=== PATIENT | female | born 1955 | race African-American/Black ===

== ENCOUNTER 2018-08-14 09:39 | Emergency (ER) | payer MEDICAID, SELFPAY ==
[2018-08-14 09:41] VITALS: BP 114/58; PULSE 87; RESP 16; TEMP 37.2; O2SAT 98; BMI 39.0
--- NOTE | 2018-08-14 10:02 | CT_ITS ---
STUDY: CT ABDOMEN AND PELVIS WITHOUT CONTRAST REASON FOR EXAM: Female, 63 years old. Left flank pain RADIATION DOSAGE (If Supplied By Facility): CTDIvol = ( 20.99 ) mGy, DLP = ( 865.14 ) mGycm TECHNIQUE: Transaxial images were obtained from the dome of the diaphragm to the symphysis pubis without oral contrast, and without intravenous contrast. Sagittal and coronal images were reconstructed. Individualized dose optimization techniques were used for this CT. COMPARISON: None. FINDINGS: There are chronic interstitial fibrotic changes of the lung bases. The visualized portions of the heart are within normal limits. Normal liver. Normal gallbladder and extrahepatic biliary system. Normal spleen. Normal pancreas. Normal bilateral adrenal glands. Normal right kidney. Normal left kidney. Normal visualized stomach. Normal small intestine. There are multiple colonic diverticula consistent with diverticulosis. There is non-visualization of the appendix. There is diffuse atherosclerotic calcification of the abdominal aorta, without a demonstrated aneurysm. Normal inferior vena cava. Normal retroperitoneum. Normal urinary bladder. Normal abdominal wall. Grade 1 spondylolisthesis of L4-L5. There is canal narrowing at multiple lumbar levels due to degenerative disc disease, facet arthropathy. CT/Abdomen/Pelvis without Cont IMPRESSION: 1. No hydronephrosis or urinary tract calcifications. 2. Chronic changes, as above. Electronically Signed: Sravan Jacobo MD at 11:19 EST , Service support ,
[2018-08-14] MEDS: 0.9% Normal Saline 1,000 ML 125 ML IV (10:47)
[2018-08-14 10:55] LABS: Absolute Lymphocyte Count 2.24 X10^3/ul (0.83-4.51); Absolute Neutrophil Count 4.5 X10^3/uL (2.0-7.7); Basophil# 0.02 X10^3/uL; Basophil% 0.3 % (0-1); Eosinophil# 0.07 X10^3/uL; Eosinophils% 0.9 % (0-5); Hematocrit 38.8 % (37-47); Lymphocyte # 2.24 X10^3/ul (4.0); Lymphocyte % 30.4 % (19-41); Mean Corp Hgb Conc 33.5 g/gl (32-36); Mean Corpuscular Hgb 31.6 pg (27.0-32.0); Mean Corpuscular Volume 94.4 fL (81-99); Mean Platelet Vol. 9.9 fl (6.2-12.0); Monocyte# 0.57 X10^3/uL; Monocyte% 7.7 % (0-10); Neutrophil # 4.45 X10^3/uL (2.7-7.7); Neutrophil % 60.4 % (47-70); Platelet Count 298 K/mm3 (150-450); RBC Distribution Width CV 12.9 % (11.6-14.6); RBC Distribution Width SD 43.3 fl (35.1-43.9); Red Blood Count 4.11 M/mm3 (4.2-5.4); White Blood Count 7.4 K/mm3 (4.4-11.0)
[2018-08-14 10:59] LABS: POSITIVE COUNT NO; POSITIVE DIFFERENTIAL NO; POSITIVE MORPHOLOGY NO
[2018-08-14 11:06] LABS: Anion Gap 8 (5-15); BUN 24 mg/dL (7-18); BUN/Creat Ratio 20.7 RATIO (10-20); Calcium,Total 9.3 mg/dL (8.5-10.1); Chloride 103 mmol/L (98-107); Creatinine, Serum 1.16 mg/dL (0.55-1.02); EST Glomerular Filtration Rate 50 mL/min (>60); Est Glom Filt Rate - Afr Amer 61 mL/min (>60); Estimated Creatinine Clearance 35.66 ml/min; Glucose 94 mg/dL (74-106); Potassium 3.6 mmol/L (3.5-5.1); Sodium Level 137 mmol/L (136-145)
[2018-08-14 11:30] LABS: Mucous, Urine 0 SEEN /hpf (<or=2+); Red Blood Cells-Urine 0 SEEN /hpf (0-5)
[2018-08-14 11:40] LABS: Color, Urine Yellow (Yellow); Glucose, Dipstick Normal (Normal); Ketone-Dipstick Negative (Negative); Leukocyte Esterase-Dipstick 100 /ul (Negative); Nitrite-Dipstick Positive (Negative); Occult Blood-Urine Negative /ul (Negative); Protein-Dipstick Negative (Negative); Urine Bilirubin Dipstick Negative (Negative); Urine Clarity Clear (Clear); Urine Urobilinogen Normal (Normal)
[2018-08-14 11:46] LABS: Bacteria 1+ /hpf (None Seen); Squamous Epithelial Cells - UA 0-5 SEEN /hpf (5-10); White Blood Cells 0-5 SEEN /hpf (0-5)
[2018-08-14 12:18] VITALS: BP 131/62; PULSE 75; RESP 16; O2SAT 95
--- NOTE | 2018-08-14 12:53 | ED.VISSUMM ---
- ER Visit Summary Date of Service: 08/14/18 Chief Complaint: [Abdominal pain] History of Present Illness: The patient is a 63 F [presents the emergency department with abdominal pain for about a month. Patient states that she has been seen for this by her primary care physician and was treated with an antibiotic for suspected urinary tract infection as she has had a foul odor to her urine as well as dysuria. Patient states that then she was called and told that she needed to be on a different antibiotic and she was prescribed something different and patient cannot tell me what she was taking. Patient states that she felt better for a short time after the antibiotics but then the symptoms started to come back. Patient denies any nausea or vomiting. She denies any diarrhea. She denies any blood in her stool or black tarry stools. Patient does have a history of diverticulosis and she is wondering if may be that not flared up. She does have a history of hypertension and high cholesterol.] Physical Examination: [HEENT-PERRLA, EOMI. Cranial nerves II through XII grossly intact. TMs clear. Mucous membranes moist. No adenopathy. Cardiovascular-regular rate and rhythm without murmur or ectopy Lungs-clear to auscultation, chest wall stable without crepitus or subcu emphysema Abdomen-normoactive bowel sounds, soft. Patient has some diffuse tenderness over the lower abdomen. There is no rebound, rigidity, or perineal signs. Extremities-intact ?4, normal range of motion, normal pulses, atraumatic] Test Results: [CBC with differential obtained showed a normal white blood cell count of 7.4, hemoglobin 13, hematocrit 39, placed 298. Chemistries unremarkable. Urinalysis was positive for 100 leukocyte esterase as well as positive for nitrites. Patient has 0-5 WBCs and +1 bacteria. Urine culture was sent.] CT scan of the abdomen pelvis without contrast showed nothing acute. Emergency Department Course and Treatment: [Patient was medicated with Rocephin 1 g IV.] Treatment Plan: [Patient will be treated with Bactrim and Pyridium as well as [place]] Disposition: [Discharged home in stable condition] Impression: [UTI] This note was generated with GetThisation software. It may contain incorrect words, spelling, and punctuation that were not noted in review of the chart prior to signing ED Disposition - Plan for ED Patient: Referrals: Louisa Wray, DRAW BENCH OPERATOR-C [Primary Care Provider] -
--- NOTE | 2018-08-14 12:56 | ED.DCSUM_ITS ---
- ER Visit Summary Date of Service: 08/14/18 Chief Complaint: [Abdominal pain] History of Present Illness: The patient is a 63 F [presents the emergency department with abdominal pain for about a month. Patient states that she has been seen for this by her primary care physician and was treated with an ant ibiotic for suspected urinary tract infection as she has had a foul odor to her urine as well as dysuria. Patient states that then she was called and told that she needed to be on a different antibiotic and she was prescribed something different and patient cannot tell me what she was taking. Patient states that she felt better for a short time after the antibiotics but then the symptoms started to come back. Patient denies any nausea or vomiting. She denies any diarrhea. She denies any blood in her stool or black tarry stools. Patient does have a history of diverticulosis and she is wondering if may be that not flared up. She does have a history of hypertension and high cholesterol.] Physical Examination: [HEENT-PERRLA, EOMI. Cranial nerves II through XII loreto ssly intact. TMs clear. Mucous membranes moist. No adenopathy. Cardiovascular-regular rate and rhythm without murmur or ectopy Lungs-clear to auscultation, chest wall stable without crepitus or subcu emphysema Abdomen-normoactive bowel sounds, soft. Patient has some diffuse tenderness over the lower abdomen. There is no rebound, rigidity, or perineal signs. Extremities-intact ?4, normal range of motion, normal pulses, atraumatic] Test Results: [CBC with differential obtained showed a normal white blood cell count of 7.4, hemoglobin 13, hematocrit 39, placed 298. Chemistries unremarkable. Urinalysis was positive for 100 leukocyte esterase as well as positive for nitrites. Patient has 0-5 WBCs and +1 bacteria. Urine culture was sent.] CT scan of the abdomen pelvis without contrast showed nothing acute. Emergency Department Course and Treatment: [Patient was medicated with Rocephin 1 g IV.] Treatment Plan: [Patient will be treated with Bactrim and Pyridium as well as [place]] Disposition: [Discharged home in stable condition] Impression: [UTI] This note was generated with A[employer] dictation software. It may contain incorrect words, spelling, and punctuation that were not noted in review of the chart prior to signing ED Disposition - Plan for ED Patient: Referrals: Louisa Wray, GEOMETRICIAN-C [Primary Care Provider] -
--- NOTE | 2018-08-14 12:56 | ED.DEP ---
ED Disposition - Plan for ED Patient: Instructions: ED UTI Cystitis Female Prescriptions: Hydrocodone Bitart/Apap 5-325 [[place] 5MG-325MG] 1 tab PO Q4H PRN PRN 2 Days #10 tab PRN Reason: Pain Phenazopyridine HCl [Pyridium] 200 mg PO BID PRN PRN #10 tab PRN Reason: Pain Smz/Tmp Ds [Bactrim Ds] 1 tab PO BID #20 tab Referrals: Louisa Wray, CARBURETOR REBUILDER-C [Primary Care Provider] - 3-5 Days
[2018-08-14] MEDS: Ceftriaxone 1 GM/50 ML BAG IV (13:23)
[2018-08-14 14:00] VITALS: BP 114/68; PULSE 67; RESP 16; O2SAT 99
[2018-08-14 14:11] VITALS: BP 114/68; PULSE 67; RESP 16; O2SAT 99
== END 2018-08-14 14:11 | disposition home or self-care (01) ==
PROVIDERS: Emergency Provider Emergency Medicine; Family Provider Nurse Practitioner Family; PCP Nurse Practitioner Family
DX: N39.0 Urinary tract infection, site not specified (principal); I10 Essential (primary) hypertension; E78.00 Pure hypercholesterolemia, unspecified; Z79.2 Long term (current) use of antibiotics; Z79.899 Other long term (current) drug therapy; Z87.891 Personal history of nicotine dependence
CPT/HCPCS: 74176; 80048; 81001; 85025; 96361; 96365; 99283; J7030

== ENCOUNTER → 2018-09-30 13:04 | Outpatient (CLI) | payer OTHER, SELFPAY ==
--- NOTE | 2018-09-30 13:07 | BI_ITS ---
MAMMOGRAPHY - BILATERAL SCREENING 3-D PILLO SYNTHESIS REASON FOR EXAM: Female, 63 years old. Bilateral Screening 3-D tomosynthesis PERTINENT HISTORY: Family history of breast cancer in 2 sisters at age 56 and 53. Left axillary cyst drained in 2005. TECHNIQUE: 2-D mammograms and 3-D Pillo synthesis of the breast (s) were performed. CAD was performed. COMPARISON: August 06, 2017, June 10, 2016 FINDINGS: The breast composition is almost entirely fat. Scattered benign calcifications are seen. There are stable lymph nodes. No dense spiculated masses or suspicious microcalcifications are identified. No architectural distortion is identified. There is no skin thickening or retraction. There has been no significant change since the prior study. BI/SCREENING MAMM (CAD), BILAT IMPRESSION: No mammographic signs of malignancy. Routine yearly mammograms recommended. ASSESSMENT CATEGORY: BIRADS Category 2: Benign. A letter regarding these results will be sent to the patient by the facility within 30 days. FOLLOW UP RECOMMENDATION: Yearly follow up mammogram recommended. (A) Approximately 10% of breast cancers are not detected by mammography. A normal mammogram should not delay biopsy of a clinically suspicious abnormality. Electronically Signed: Ethan Dukes MD at 17:05 EDT , Service support ,
== END ==
PROVIDERS: Family Provider Nurse Practitioner Family; PCP Nurse Practitioner Family
DX: Z12.31 Encounter for screening mammogram for malignant neoplasm of breast (principal)
CPT/HCPCS: 77063; 77067

== ENCOUNTER 2018-10-03 02:36 | Emergency (ER) | payer MEDICAID, SELFPAY ==
[2018-10-03 02:37] VITALS: BP 173/121; PULSE 73; RESP 16; TEMP 36.6; O2SAT 100; BMI 38.7
[2018-10-03 03:42] VITALS: BP 109/69; PULSE 72; RESP 16
--- NOTE | 2018-10-03 03:46 | RAD_ITS ---
STUDY: X-RAY - PELVIS AND RIGHT HIP REASON FOR EXAM: Female, 63 years old. Pain. No known injury. TECHNIQUE: 3 views of the pelvis and hip. COMPARISON: CT scan abdomen and pelvis 08/14/2018. FINDINGS: There is a non-specific bowel gas pattern. There are atherosclerotic vascular calcifications of the pelvic arteries. Normal bilateral iliac wings, sacroiliac joints and visualized sacrum. Normal bilateral superior and inferior pubic rami. Normal pubic symphysis. Normal bilateral ischial tuberosities. Normal visualized femoral head. Normal acetabulum. Normal hip joint. RAD/HIP, UNI W/ Pelvis 2-3 Views IMPRESSION: Normal x-ray examination of the pelvis and hip. Electronically Signed: Keith Nolasco MD at 4:48 EDT , Service support ,
[2018-10-03] MEDS: Ondansetron 4 MG/2 ML Vial IV (04:09)
[2018-10-03] MEDS: Morphine 4 MG/ML Syringe IV (04:10)
[2018-10-03 04:28] LABS: Absolute Lymphocyte Count 0.88 X10^3/ul (0.83-4.51); Absolute Neutrophil Count 7.6 X10^3/uL (2.0-7.7); Basophil# 0.02 X10^3/uL; Basophil% 0.2 % (0-1); Eosinophil# 0.01 X10^3/uL; Eosinophils% 0.1 % (0-5); Hematocrit 37.7 % (37-47); Hemoglobin 12.6 g/dl (12.0-15.0); Lymphocyte # 0.88 X10^3/ul (4.0); Mean Corp Hgb Conc 33.4 g/gl (32-36); Mean Corpuscular Hgb 30.8 pg (27.0-32.0); Mean Corpuscular Volume 92.2 fL (81-99); Mean Platelet Vol. 9.8 fl (6.2-12.0); Monocyte# 0.23 X10^3/uL; Monocyte% 2.6 % (0-10); Neutrophil # 7.59 X10^3/uL (2.7-7.7); Neutrophil % 86.3 % (47-70); Platelet Count 308 K/mm3 (150-450); RBC Distribution Width CV 13.7 % (11.6-14.6); RBC Distribution Width SD 45.8 fl (35.1-43.9); Red Blood Count 4.09 M/mm3 (4.2-5.4); White Blood Count 8.8 K/mm3 (4.4-11.0)
[2018-10-03 04:35] LABS: POSITIVE COUNT NO; POSITIVE DIFFERENTIAL NO; POSITIVE MORPHOLOGY NO
[2018-10-03 04:46] LABS: Erythrocyte Sedimentation Rate 31 mm/hr (0-30)
[2018-10-03 04:51] LABS: CRP < 2.90 mg/L (0.0-3.0)
--- NOTE | 2018-10-03 04:56 | ED.VISSUMM ---
- ER Visit Summary Date of Service: 10/03/18 Chief Complaint: [Pain right hip] History of Present Illness: The patient is a 63 F [presents with pain in the right hip that started yesterday. Patient denies any trauma. Patient states that she has been sitting on her toilet and has been falling onto it because it is quite low and she thinks it may have caused injury to her hip. Patient states the pain will radiate into her thigh. She denies any fevers. She denies any back pain. She denies any abdominal pain. Patient rates her pain a 10 out of 10. She is never had pain like this before. Patient denies any change in bowel or bladder function. She denies weakness in extremity. She denies saddle anesthesia. Physical Examination: HEENT-PERRLA, EOMI. Cranial nerves II through XII grossly intact. TMs clear. Mucous membranes moist. No adenopathy. Cardiovascular-regular rate and rhythm without murmur or ectopy Lungs-clear to auscultation, chest wall stable without crepitus or subcu emphysema Abdomen-normoactive bowel sounds, soft, nontender, no rebound or rigidity, no peritoneal signs. Back exam-patient has no tenderness over the thoracic or lumbar spine. Patient does have tenderness into the right buttock and right piriformis. Patient has mild tenderness over the right hip. There is negative straight leg raises bilaterally. Deep tendon reflexes are plus out of 4 bilaterally at the patella and Achilles. Patient has normal L5 extension. Extremities-intact ?4, normal range of motion, normal pulses, atraumatic [] Test Results: [CBC with differential obtained showed a normal white count of 8.8 and a sed rate of 31. CRP was normal at less than 2.9. X-rays of the right hip and pelvis were normal.] Emergency Department Course and Treatment: [Patient was then given morphine and Zofran.] Treatment Plan: [I suspect patient may have a sciatica/piriformis syndrome. Patient will be given a prescription for [place] for pain. Patient advised to follow-up with primary care physician within next 3-5 days.] Disposition: [Discharged home in stable condition] Impression: [Sciatica] This note was generated with Surflyation software. It may contain incorrect words, spelling, and punctuation that were not noted in review of the chart prior to signing ED Disposition - Plan for ED Patient: Referrals: Louisa Wray, LAUNDROMAT MANAGER-C [Primary Care Provider] -
--- NOTE | 2018-10-03 04:59 | ED.DCSUM_ITS ---
- ER Visit Summary Date of Service: 10/03/18 Chief Complaint: [Pain right hip] History of Present Illness: The patient is a 63 F [presents with pain in the right hip that started yesterday. Patient denies any trauma. Patient states that she has been sitting on her toilet and has been falling onto it because it is quite low and she thinks it may have caused injury to her hip. Patient states the pain will radiate into her thigh. She denies any fevers. She denies any back pain. She denies any abdominal pain. Patient rates her pain a 10 out of 10. She is never had pain like this before. Patient denies any change in bowel or bladder function. She denies weakness in extremity. She denies saddle anesthesia. Physical Examination: HEENT-PERRLA, EOMI. Cranial nerves II through XII grossly intact. TMs clear. Mucous membranes moist. No adenopathy. Cardiovascular-regular rate and rhythm without murmur or ectopy Lungs-clear to auscultation, chest wall stable without crepitus or subcu emphysema Abdomen-normoactive bowel sounds, soft, nontender, no rebound or rigidity, no peritoneal signs. Back exam-patient has no tenderness over the thoracic or lumbar spine. Patient does have tenderness into the right buttock and right piriformis. Patient has mild tenderness over the right hip. There is negative straight leg raises bilaterally. Deep tendon reflexes are plus out of 4 bilaterally at the patella and Achilles. Patient has normal L5 extension. Extremities-intact ?4, normal range of motion, normal pulses, atraumatic [] Test Results: [CBC with differential obtained showed a normal white count of 8.8 and a sed rate of 31. CRP was normal at less than 2.9. X-rays of the right hip and pelvis were normal.] Emergency Department Course and Treatment: [Patient was then given morphine and Zofran.] Treatment Plan: [I suspect patient may have a sciatica/piriformis syndrome. Patient will be given a prescription for [place] for pain. Patient advised to follow-up with primary care physician within next 3-5 days.] Disposition: [Discharged home in stable condition] Impression: [Sciatica] This note was generated with TruantTodayation software. It may contain incorrect words, spelling, and punctuation that were not noted in review of the chart prior to signing ED Disposition - Plan for ED Patient: Referrals: Louisa Wray, BASS MECHANISM MAKER-C [Primary Care Provider] -
--- NOTE | 2018-10-03 04:59 | ED.DEP ---
ED Disposition - Plan for ED Patient: Instructions: ED Sciatica Prescriptions: Hydrocodone Bitart/Apap 5-325 [[place] 5MG-325MG] 1 tab PO Q4H PRN PRN 2 Days #10 tab PRN Reason: Pain Referrals: Louisa Wray, REVOLVING INVENTORY CLERK-C [Primary Care Provider] - 3-5 Days
--- NOTE | 2018-10-03 05:00 | DCINST.ED_ITS ---
ED Disposition - Plan for ED Patient: Instructions: ED Sciatica Prescriptions: Hydrocodone Bitart/Apap 5-325 [[place] 5MG-325MG] 1 tab PO Q4H PRN PRN 2 Days #10 tab PRN Reason: Pain Referrals: Louisa Wray, FACS TEACHER-C [Primary Care Provider] - 3-5 Days
[2018-10-03] MEDS: HYDROcodone Bitartrate/Apap 5/325 Tablet PO (05:19)
[2018-10-03 05:29] VITALS: BP 160/89; PULSE 74; RESP 18; O2SAT 98
== END 2018-10-03 05:37 | disposition home or self-care (01) ==
LOC: ED 03:52
PROVIDERS: Emergency Provider Emergency Medicine; Family Provider Nurse Practitioner Family; PCP Nurse Practitioner Family
DX: M25.551 Pain in right hip (principal); M54.31 Sciatica, right side
CPT/HCPCS: 73502; 85025; 85652; 86140; 96374; 96375; 99284; A4216; J2405

== ENCOUNTER → 2019-05-02 | Outpatient (CLI) | payer OTHER, SELFPAY ==
[2019-02-22 09:49] VITALS: BMI 37.0
== END | disposition home or self-care (01) ==
LOC: SL 20:12
PROVIDERS: Family Provider Internal Medicine; PCP Internal Medicine; Referring Provider Nurse Practitioner Family; Visit Provider Nurse Practitioner Family
DX: G47.33 Obstructive sleep apnea (adult) (pediatric) (principal)
CPT/HCPCS: 95810

== ENCOUNTER → 2019-05-09 | Outpatient (CLI) | payer OTHER, SELFPAY ==
[2019-05-09 10:03] VITALS: BMI 37.0
[2019-05-09 12:21] LABS: Absolute Lymphocyte Count 2.28 X10^3/uL (0.83-4.51); Absolute Neutrophil Count 3.6 X10^3/uL (2.0-7.7); Basophil# 0.04 X10^3/uL; Basophil% 0.6 % (0-1); Eosinophil# 0.11 X10^3/uL; Eosinophils% 1.7 % (0-5); Hematocrit 41.4 % (37-47); Hemoglobin 13.3 g/dL (12.0-15.0); Lymphocyte # 2.28 X10^3/ul (4.0); Lymphocyte % 35.2 % (19-41); Mean Corp Hgb Conc 32.1 g/dL (32-36); Mean Corpuscular Hgb 31.1 pg (27.0-32.0); Mean Corpuscular Volume 96.7 fL (81-99); Mean Platelet Vol. 10.3 fl (6.2-12.0); Monocyte# 0.38 X10^3/uL; Monocyte% 5.9 % (0-10); NRBC Flagged by Analyzer 0 % (0-5); Neutrophil # 3.63 X10^3/uL (2.7-7.7); Platelet Count 313 K/mm3 (150-450); RBC Distribution Width CV 13.2 % (11.6-14.6); Red Blood Count 4.28 M/mm3 (4.2-5.4); White Blood Count 6.5 K/mm3 (4.4-11.0)
[2019-05-09 12:38] LABS: BUN 24 mg/dL (7-18); Creatinine, Serum 1.39 mg/dL (0.55-1.02); Glucose 107 mg/dL (74-106)
[2019-05-09 12:39] LABS: AST(SGOT) 16 U/L (15-37); Alanine Aminotransfer ALT/SGPT 24 U/L (13-56); Alkaline Phosphatase 87 U/L (45-117); Anion Gap 7 (5-15); BUN/Creat Ratio 17.3 RATIO (10-20); Calcium,Total 9.3 mg/dL (8.5-10.1); Chloride 102 mmol/L (98-107); Cholesterol 187 mg/dL (200); EST Glomerular Filtration Rate 41 mL/min (>60); Est Glom Filt Rate - Afr Amer 49 mL/min (>60); Globulin 4.1 g/dL (2.2-4.2); High Density Lipoprotein 76 mg/dL; Potassium 3.8 mmol/L (3.5-5.1); Protein, Total 8.1 g/dL (6.4-8.2); Sodium Level 137 mmol/L (136-145); Triglycerides 189 mg/dL; Very Low Density Lipoprotein 38 mg/dL (5-40)
== END | disposition home or self-care (01) ==
LOC: BIMLAB 10:21
PROVIDERS: Family Provider Internal Medicine; PCP Internal Medicine; Visit Provider Internal Medicine
DX: I10 Essential (primary) hypertension (principal)
CPT/HCPCS: 36415; 80053; 80061; 85025

== ENCOUNTER → 2019-06-07 18:36 | Outpatient (CLI) | payer OTHER, SELFPAY ==
[2019-05-27 10:42] VITALS: BMI 37.0
--- NOTE | 2019-06-07 18:40 | CT_ITS ---
STUDY: LOW DOSE CT LUNG CANCER SCREENING REASON FOR EXAM: Female, 64 years old. Long history of smoking. Screening for lung cancer. RADIATION DOSAGE (If Supplied By Facility): CTDIvol = ( 3.02 ) mGy, DLP = ( 96.66 ) mGycm TECHNIQUE: No contrast was administered. Low dose technique was utilized (average mAS-38 and kVp 120). 1.25 mm axial source images with a slice interval of 1.25-mm were reconstructed in lung windows. 2.5 mm axial source images with a slice interval of 2.5-mm were reconstructed in lung windows. 5.0 mm axial source images with a slice interval of 5.0-mm were reconstructed in soft tissue windows. Nodule measured using lung windows on PACS and/or independent workstation with automated measurement of minimum and maximum diameter. Nodule measurement reported as average diameter rounded to the nearest whole number. Growth is defined as an increase ins size of greater than 1.5 mm. COMPARISON: None. NODULES: There is hyperinflation of the lungs consistent with chronic obstructive lung disease (COPD). Subpleural irregular opacities are seen in the right middle lobe and lingula are consistent with scarring from old lesions. There is a 4 m nodule in the anterior basal segment of the left lung lower lobe, axial image #104 most likely represents a benign lesion. There is no demonstrated pleural abnormality. Normal heart and pericardium. Normal mediastinum. Normal hilar regions. Normal unenhanced pulmonary arteries. Normal aorta arch and descending thoracic aorta. There are multi-level degenerative changes of the thoracic spine. There is no demonstrated abnormality of the visualized upper abdomen. CT/Low Dose CT Lung Screening IMPRESSION: Lung-RADS category 2. Benign findings. Recommendation: Routine screening CT scan in one year. IMPORTANT NOTES FOR USE: ACR Lung-RADS Version 1.0 Assessment Categories Release Date: November 07, 2013 Category: Coded 0-4 bases on nodule(s) with highest degree of suspicion. Negative screen is defined as categories 1 and 2; a positive screen is defined as categories 3 and 4. Category 3 and 4A nodules that are unchanged on interval CT should be coded as category 2, and individuals returned to screening in 12 months. Category 4X: Category 3 or 4 nodules with additional imaging findings that increase the suspicion of lung cancer, such as spiculation, GGN that doubles in size in 1 year, enlarged lymph notes, etc. Category Modifiers: S (significant finding unrelated to lung cancer) and C (prior history of treated lung cancer) may be added to the 0-4 Lung-RADS Electronically Signed: Alva Monaco, at 8:24 EST Tel , Service support ,
== END ==
PROVIDERS: Family Provider Internal Medicine; PCP Internal Medicine; Referring Provider Nurse Practitioner Acute Care; Visit Provider Nurse Practitioner Acute Care
DX: Z87.891 Personal history of nicotine dependence (principal)
CPT/HCPCS: G0297

== ENCOUNTER → 2019-06-22 20:00 | Outpatient (CLI) | payer OTHER, SELFPAY ==
[2019-05-27 10:42] VITALS: BMI 37.0
== END ==
PROVIDERS: Family Provider Internal Medicine; PCP Internal Medicine; Referring Provider Nurse Practitioner Acute Care; Visit Provider Nurse Practitioner Acute Care
DX: G47.30 Sleep apnea, unspecified (principal)
CPT/HCPCS: 95811

== ENCOUNTER → 2019-07-14 09:00 | Outpatient (CLI) | payer OTHER, SELFPAY ==
[2019-06-24 13:36] VITALS: BMI 37.0
== END ==
PROVIDERS: Family Provider Internal Medicine; PCP Internal Medicine; Visit Provider Nurse Practitioner Acute Care
DX: Z46.89 Encounter for fitting and adjustment of other specified devices (principal)

== ENCOUNTER → 2019-11-10 08:13 | Outpatient (CLI) | payer OTHER, SELFPAY ==
[2019-10-18 11:48] VITALS: BMI 36.7
[2019-11-10 09:27] LABS: AST(SGOT) 25 U/L (15-37); Alanine Aminotransfer ALT/SGPT 36 U/L (13-56); Albumin, Serum 3.9 g/dL (3.2-5.0); Alkaline Phosphatase 81 U/L (45-117); Anion Gap 10 (5-15); BUN 19 mg/dL (7-18); BUN/Creat Ratio 19.7 RATIO (10-20); Calcium,Total 9.1 mg/dL (8.5-10.1); Chloride 102 mmol/L (98-107); Cholesterol 184 mg/dL (200); Creatinine, Serum 0.96 mg/dL (0.55-1.02); EST Glomerular Filtration Rate 62 mL/min (>60); Est Glom Filt Rate - Afr Amer 75 mL/min (>60); Globulin 3.8 g/dL (2.2-4.2); Glucose 94 mg/dL (74-106); High Density Lipoprotein 73 mg/dL; Magnesium 2.2 mg/dL (1.6-2.6); Potassium 3.8 mmol/L (3.5-5.1); Protein, Total 7.7 g/dL (6.4-8.2); Sodium Level 139 mmol/L (136-145); Triglycerides 230 mg/dL; Very Low Density Lipoprotein 46 mg/dL (5-40)
== END ==
PROVIDERS: PCP Internal Medicine; Referring Provider Nurse Practitioner Family; Visit Provider Nurse Practitioner Family
DX: I10 Essential (primary) hypertension (principal); E78.00 Pure hypercholesterolemia, unspecified; R25.2 Cramp and spasm
CPT/HCPCS: 36415; 80053; 80061; 83735

== ENCOUNTER → 2020-04-30 09:36 | Outpatient (CLI) | payer MEDICARE, OTHER, SELFPAY ==
[2020-04-30 08:52] VITALS: BMI 38.2
[2020-04-30 12:19] LABS: Absolute Lymphocyte Count 1.68 X10^3/uL (0.83-4.51); Absolute Neutrophil Count 3.1 X10^3/uL (2.0-7.7); Basophil# 0.05 X10^3/uL; Basophil% 0.9 % (0-1); Eosinophil# 0.17 X10^3/uL; Eosinophils% 3.1 % (0-5); Hematocrit 36.4 % (37-47); Hemoglobin 11.5 g/dL (12.0-15.0); Lymphocyte # 1.68 X10^3/ul (4.0); Lymphocyte % 30.8 % (19-41); Mean Corp Hgb Conc 31.6 g/dL (32-36); Mean Corpuscular Hgb 31.4 pg (27.0-32.0); Mean Corpuscular Volume 99.5 fL (81-99); Mean Platelet Vol. 10.6 fl (6.2-12.0); Monocyte# 0.48 X10^3/uL; Monocyte% 8.8 % (0-10); NRBC Flagged by Analyzer 0 % (0-5); Neutrophil # 3.06 X10^3/uL (2.7-7.7); Platelet Count 270 K/mm3 (150-450); RBC Distribution Width CV 13.4 % (11.6-14.6); Red Blood Count 3.66 M/mm3 (4.2-5.4); White Blood Count 5.5 K/mm3 (4.4-11.0)
[2020-04-30 12:51] LABS: ALB/GLOB Ratio 0.9 RATIO (0.9-2.4); AST(SGOT) 20 U/L (15-37); Alanine Aminotransfer ALT/SGPT 38 U/L (13-56); Albumin, Serum 3.6 g/dL (3.2-5.0); Alkaline Phosphatase 81 U/L (45-117); Anion Gap 8 (5-15); BUN 18 mg/dL (7-18); Calcium,Total 8.9 mg/dL (8.5-10.1); Chloride 105 mmol/L (98-107); EST Glomerular Filtration Rate 59 mL/min (>60); Est Glom Filt Rate - Afr Amer 72 mL/min (>60); Globulin 3.8 g/dL (2.2-4.2); Glucose 96 mg/dL (74-106); Protein, Total 7.4 g/dL (6.4-8.2); Sodium Level 140 mmol/L (136-145)
== END ==
PROVIDERS: PCP Internal Medicine; Visit Provider Internal Medicine
DX: I10 Essential (primary) hypertension (principal)
CPT/HCPCS: 36415; 80053; 85025

== ENCOUNTER → 2020-05-09 13:02 | Outpatient (CLI) | payer MEDICARE, OTHER, SELFPAY ==
[2020-04-30 08:52] VITALS: BMI 38.2
[2020-05-01 14:21] VITALS: BMI 38.1
--- NOTE | 2020-05-09 13:03 | BI_ITS ---
MAMMOGRAPHY - BILATERAL SCREENING REASON FOR EXAM: Female, 65 years old. Routine annual screening examination. PERTINENT HISTORY: Sisters with breast cancer. TECHNIQUE: Digital bilateral breast pillo (3D mammographic acquisition) in the CC and MLO projections. 2-D mediolateral oblique (MLO) and craniocaudad (CC) views of both breasts were obtained. CAD: Full Field Digital Mammography with Computer Added Detection was performed. COMPARISON: Comparison is made with prior study dated 09/30/2018. FINDINGS: Breast Composition: The breasts are heterogeneously dense, which may obscure small masses. There are no dominant masses or suspicious calcifications. Stable benign appearing bilateral axillary lymph nodes. No other significant abnormalities are identified. There has been no significant change since the prior study. BI/SCREEN MAMM (CAD) W/PILLO BILAT IMPRESSION: Stable bilateral screening mammogram. Yearly follow-up mammogram recommended. (A) ASSESSMENT CATEGORY: BIRADS Category 2: Benign. A letter regarding these results will be sent to the patient by the facility within 30 days. Approximately 10% of breast cancers are not detected by mammography. A normal mammogram should not delay biopsy of a clinically suspicious abnormality. [id number] Electronically Signed: Carl Castañeda, at 14:13 EDT , Service support ,
== END ==
PROVIDERS: PCP Internal Medicine; Referring Provider Internal Medicine; Visit Provider Internal Medicine
DX: Z12.31 Encounter for screening mammogram for malignant neoplasm of breast (principal)
CPT/HCPCS: 77063; 77067

== ENCOUNTER → 2020-07-30 13:39 | Outpatient (CLI) | payer BC, SELFPAY ==
[2020-05-01 14:21] VITALS: BMI 38.1
[2020-07-30 15:51] LABS: Absolute Lymphocyte Count 3.39 X10^3/uL (0.83-4.51); Absolute Neutrophil Count 3.3 X10^3/uL (2.0-7.7); Basophil# 0.04 X10^3/uL; Basophil% 0.5 % (0-1); Eosinophil# 0.15 X10^3/uL; Hematocrit 38.6 % (37-47); Hemoglobin 12.5 g/dL (12.0-15.0); Lymphocyte # 3.39 X10^3/ul (4.0); Lymphocyte % 44.8 % (19-41); Mean Corp Hgb Conc 32.4 g/dL (32-36); Mean Corpuscular Hgb 31.1 pg (27.0-32.0); Mean Platelet Vol. 10.3 fl (6.2-12.0); Monocyte# 0.67 X10^3/uL; Monocyte% 8.9 % (0-10); NRBC Flagged by Analyzer 0 % (0-5); Neutrophil # 3.28 X10^3/uL (2.7-7.7); Neutrophil % 43.4 % (47-70); Platelet Count 300 K/mm3 (150-450); RBC Distribution Width CV 12.7 % (11.6-14.6); RBC Distribution Width SD 45.5 fl (35.1-43.9); Red Blood Count 4.02 M/mm3 (4.2-5.4); White Blood Count 7.6 K/mm3 (4.4-11.0)
[2020-07-30 15:59] LABS: Anion Gap 7 (5-15); BUN 21 mg/dL (7-18); BUN/Creat Ratio 18.6 RATIO (10-20); Calcium,Total 9.2 mg/dL (8.5-10.1); Chloride 107 mmol/L (98-107); Creatinine, Serum 1.13 mg/dL (0.55-1.02); EST Glomerular Filtration Rate 51 mL/min (>60); Est Glom Filt Rate - Afr Amer 62 mL/min (>60); Glucose 84 mg/dL (74-106); Potassium 3.9 mmol/L (3.5-5.1); Sodium Level 140 mmol/L (136-145)
== END ==
PROVIDERS: PCP Internal Medicine; Visit Provider Internal Medicine
DX: I10 Essential (primary) hypertension (principal); D64.9 Anemia, unspecified
CPT/HCPCS: 36415; 80048; 85025

== ENCOUNTER → 2020-08-09 10:30 | Outpatient (CLI) | payer MEDICARE, SELFPAY ==
[2020-05-01 14:21] VITALS: BMI 38.1
--- NOTE | 2020-08-10 06:58 | PFT_ITS ---
INTRODUCTION: The patient is a 65-year-old -[place] female who presents for pulmonary function studies secondary to a diagnosis of asthma. Respiratory therapy reports good patient effort. Bronchodilators were used during testing. INTERPRETATION: Forced expiration spirometry demonstrates no evidence of a large airways obstructive ventilatory defect. There was, nevertheless, a significant response to aerosolized bronchodilators. Spirograms are of good quality and plateau normally. Body plethysmography was performed and reveals a decreased TLC to 3.19 L, 79% of predicted, indicative of a mild restrictive ventilatory impairment. Diffusing capacity by single breath CO is within normal limits at 85% of predicted. IMPRESSION: Isolated mild restrictive ventilatory impairment, likely secondary to body habitus. Significant bronchodilator response was also noted.
== END ==
PROVIDERS: PCP Internal Medicine; Referring Provider Internal Medicine; Visit Provider Internal Medicine
DX: J45.909 Unspecified asthma, uncomplicated (principal)
CPT/HCPCS: 94060; 94726; 94729

== ENCOUNTER → 2020-10-29 13:54 | Outpatient (CLI) | payer MEDICARE, SELFPAY ==
[2020-10-29 13:11] VITALS: BMI 42.5
[2020-10-29 15:58] LABS: ALB/GLOB Ratio 1.3 RATIO (0.9-2.4); AST(SGOT) 25 U/L (15-37); Alanine Aminotransfer ALT/SGPT 36 U/L (13-56); Albumin, Serum 4.4 g/dL (3.2-5.0); Alkaline Phosphatase 97 U/L (45-117); Anion Gap 8 (5-15); BUN 19 mg/dL (7-18); BUN/Creat Ratio 20.4 RATIO (10-20); Calcium,Total 9.9 mg/dL (8.5-10.1); Chloride 102 mmol/L (98-107); Creatinine, Serum 0.93 mg/dL (0.55-1.02); EST Glomerular Filtration Rate 64 mL/min (>60); Est Glom Filt Rate - Afr Amer 78 mL/min (>60); Globulin 3.5 g/dL (2.2-4.2); Glucose 87 mg/dL (74-106); Potassium 3.7 mmol/L (3.5-5.1); Protein, Total 7.9 g/dL (6.4-8.2); Sodium Level 137 mmol/L (136-145); Uric Acid 8.3 mg/dL (2.6-6.0)
== END ==
PROVIDERS: PCP Internal Medicine; Referring Provider Internal Medicine; Visit Provider Internal Medicine
DX: M10.9 Gout, unspecified (principal)
CPT/HCPCS: 36415; 80053; 84550

== ENCOUNTER → 2020-12-13 09:53 | Outpatient (CLI) | payer MEDICARE, SELFPAY ==
[2020-11-19 10:56] VITALS: BMI 41.0
[2020-12-12 14:19] VITALS: BMI 41.0
--- NOTE | 2020-12-13 09:55 | MRI_ITS ---
STUDY: MRI LUMBAR SPINE WITHOUT CONTRAST REASON FOR EXAM: Female, 65 years old. pain TECHNIQUE: Standardized fat and water weighted pulse sequences were obtained in the sagittal and axial planes. COMPARISON: X-ray 10/29/2020 FINDINGS: T12-L1: Normal endplates. Normal disc height, hydration and morphology. Normal bilateral facet joints. Normal central canal and bilateral lateral recesses. Normal bilateral intervertebral neural foramina. Normal lumbar lordosis. Mild levoscoliosis centered at L3. Normal conus medullaris that terminates at the L1/L2. Acute microtrabecular stress reaction of the left pedicle of L5. L1-2: Normal endplates. Normal disc height, hydration and morphology. Normal bilateral facet joints. Normal central canal and bilateral lateral recesses. Normal bilateral intervertebral neural foramina. L2-3: Moderate sized bilobed disc protrusion with a large right paracentral extrusion produces severe spinal stenosis with the severe right lateral recess stenosis with effacement the right L3 nerve root, mild left lateral recess stenosis and moderate bilateral neural foraminal stenosis. L3-4: Mild bilateral facet hypertrophy with fluid in the facet joints consistent with instability and moderate ligament flavum hypertrophy. 2 mm retrolisthesis of L3 on L4 with a mild bilobed disc protrusion produces moderate spinal stenosis and moderate bilateral neural foraminal stenosis with abutment of the exiting L3 nerve roots bilaterally. L4-5: Moderate bilateral facet hypertrophy with facet joints consistent with instability and moderate ligament flavum hypertrophy. 2 mm of anterolisthesis of L4 and L5 with a moderate broad disc protrusion with a superiorly extending central disc protrusion which produces moderate spinal stenosis with moderate bilateral lateral recess stenosis with abutment of the L5 nerve roots bilaterally and moderate bilateral neural foraminal stenosis. L5-S1: Mild bilateral facet hypertrophy with fluid in the facet joints consistent with instability. No disc protrusion, spinal stenosis, or neural foraminal stenosis. Normal visualized sacral ala. Moderate friction related edema of the posterior subcutaneous fat. MRI/Spine Lumbar (Routine) IMPRESSION: Mild levoscoliosis with degenerative disc disease as described above. Electronically Signed: Brendon Marcelino MD at 9:46 EDT Tel , Service support ,
== END ==
PROVIDERS: PCP Internal Medicine; Referring Provider Orthopaedic Surgery; Visit Provider Orthopaedic Surgery
DX: M48.061 Spinal stenosis, lumbar region without neurogenic claudication (principal); M47.16 Other spondylosis with myelopathy, lumbar region; M54.9 Dorsalgia, unspecified; G89.29 Other chronic pain
CPT/HCPCS: 72148

== ENCOUNTER 2021-01-30 16:20 | Emergency (ER) | payer BC, SELFPAY ==
[2021-01-15 12:18] VITALS: BMI 44.4
[2021-01-30 16:21] VITALS: BP 184/96; PULSE 86; RESP 16; TEMP 36.5; O2SAT 97; BMI 42.5
--- NOTE | 2021-01-30 16:48 | EDS_ITS ---
HPI History of Present Illness Chief Complaint: Back Informant: patient Associated Symptoms Associated Symptoms: Negative for Numbness and Tingling Narrative Narrative: This patient presents with left-sided buttock pain and pain a little bit down the back and lateral aspect of her left leg. It sounds like she has had a long history of back problems and sciatica. She is on oxycodone regul antionette. She has been taking this. She had injections for pain down the right side recently. That is better. However the left side is bothering her at this time. No fevers chills or sweats. It is worsened by motion. It is better if she rests. She has no bowel or bladder dysfunction. No recent infections. No acute trauma or fall. She states she has had Medrol Dosepak before and that has helped a lot. Her physicians have spoke with her about surgery but she states she thinks that is up to insurance to make that decision. There was talk getting therapy but they want to try to calm down her symptoms first. She is here seeking some pain relief for what is really a chronic recurrent issue. [facility] Medical History Acute frontal sinusitis, unspecified Acute maxillary sinusitis, unspecified Alcohol abuse Arthritis Asthma Breast lump Carpal tunnel syndrome Chronic bronchitis Drug abuse Frequent urinary tract infections GERD (gastroesophageal reflux disease) Gout H/O emotional problems Heart murmur High blood pressure High cholesterol Hives Hypertension Neuropathy Seasonal allergies Sleep apnea Sleep apnea Vitamin deficiency Home Medications Sleep apnea supplies #1 ea 02/22/19 [Rx Last Taken Unknown] ferrous sulfate 325 mg (65 mg iron) tablet 325 mg PO DAILY #90 tab 07/30/20 [Rx Last Taken Unknown] pravastatin 20 mg tablet 20 mg PO DAILY #90 tab 09/03/20 [Rx Last Taken Unknown] triamterene 37.5 mg-hydrochlorothiazide 25 mg capsule 1 cap PO DAILY #90 cap 09/03/20 [Rx Last Taken Unknown] allopurinol 100 mg tablet 100 mg PO DAILY #30 tablet 10/29/20 [Rx Last Taken Unknown] clonidine HCl 0.2 mg tablet 0.2 mg PO BID #180 tab 10/29/20 [Rx Last Taken Unknown] colchicine 0.6 mg tablet 0.6 mg PO BID tab 11/19/20 [History Last Taken Unknown] albuterol sulfate 90 mcg/actuation aerosol inhaler 2 puff INHALATION Q6H PRN #8.5 g 12/12/20 [Rx Last Taken Unknown] cholecalciferol (vitamin D3) 125 mcg (5,000 unit) capsule 125 mcg PO DAILY #90 cap 12/12/20 [Rx Last Taken Unknown] fluticasone propionate 50 mcg/actuation nasal spray,suspension 2 spray INTRANASAL DAILY #16 g 12/12/20 [Rx Last Taken Unknown] losartan 50 mg tablet 50 mg PO DAILY #90 tab 12/12/20 [Rx Last Taken Unknown] montelukast 10 mg tablet 10 mg PO QPM #60 tab 12/12/20 [Rx Last Taken Unknown] fluticasone furoate 100 mcg-vilanterol 25 mcg/dose inhalation powder 1 inh INHALATION DAILY #60 ea 01/15/21 [Rx Last Taken Unknown] levocetirizine 5 mg tablet 5 mg PO QPM PRN #90 tab 01/15/21 [Rx Last Taken Unknown] prednisone 60 mg PO DAILY #15 tab 01/30/21 [Rx Last Taken Unknown] Allergy/AdvReac Type Severity Reaction Status Date / Time iodine Allergy Severe Itching, Verified 01/30/21 16:21 SOB, rashes shellfish derived Allergy Severe Itching, Verified 01/30/21 16:21 SOB, swelling hydrochlorothiazide Allergy Unknown Verified 01/30/21 16:21 Fish Containing Products AdvReac Severe Shortness Verified 01/30/21 16:21 of breath, rashes Family History Sister Cancer Diabetes Brother Cancer Father CVA (cerebral vascular accident) Hypertension Mother Hypertension Sister Hypertension Daughter Hypertension Daughter Diabetes Other Alcoholism Anemia Anxiety Arthritis Asthma Bowel disease Breast cancer Cervical cancer Colon cancer Depression High cholesterol Hormone Problems Myocardial infarction Osteoporosis Ovarian cancer PTSD (post-traumatic stress disorder) Respiratory disease Severe allergy Thyroid disorder Surgical History History of lumpectomy of right breast Social History household members: none housing: house number of children: 3 current occupational status: retired history of recent travel: No Smoking Status: Former smoker alcohol intake: current alcohol intake frequency: a few times a week Alcohol type: beer and wine details: 12 drinks per week substance use type: does not use what type of physical activity do you participate in: none seatbelt use: always do you feel safe at home: Yes additional social history: single ROS ROS ED Constitutional Constitutional ED: Denies chills, fever(s), sweats or weight loss Eyes Eyes: Denies change in vision ENT ENT ED: Denies rhinorrhea Cardiovascular Cardiovascular: Denies chest pain Respiratory/Chest Respiratory/Chest: Denies dyspnea Gastrointestinal Gastrointestinal: Denies constipation, diarrhea, nausea or vomiting Genitourinary Genitourinary ED: Reports other Details: No incontinence or difficulty urinating. ; Denies dysuria or hematuria Musculoskeletal Musculoskeletal: Reports back pain Integumentary Denies rash Neurologic Neurologic: Denies paresthesias or weakness Endocrine Endocrinology: Reports other Details: No history of diabetes. ; Denies polydipsia or polyuria Hematologic/Lymphatic Hematologic/Lymphatic: Denies easy bleeding or easy bruising EXAM Physical Exam Const Vital Signs: 01/30/21 16:21 Temperature 97.7 F L Temperature Source Temporal Pulse Rate 86 Respiratory Rate 16 Blood Pressure 184/96 H Blood Pressure Mean 125 Pulse Ox 97 Oxygen Delivery Method Room Air Positive well nourished, well developed and obese General Appearance ED: well developed Nutritional Appearance: obese HEENT Negative for trauma or tenderness Eyes EOMs intact bilaterally Resp normal respiratory effort and clear to auscultation bilaterally Cardio regular rate, regular rhythm and no murmurs GI normal to inspection, nondistended, normoactive bowel sounds, soft to palpation and non-tender Back/Spine normal to inspection and no thoracic nor lumbar tenderness Back/Spine Narrative: Patient really has no tenderness in her back. Her tenderness is in the left buttock/sciatic notch area. This does reproduce her pain. Stretching sciatic nerve also reproduces the discomfort but there is no radicular symptoms with either side. Extremity Extremity Narrative: No swelling, asymmetry, edema, erythema, tenderness along the deep venous system. Neuro oriented x3 and no sensory deficits noted Sensorium / Orientation: alert Motor Exam: strength 5/5 throughout Psych mental status grossly normal Skin no rashes or lesions noted and no wounds MDM MDM MDM Narrative Medical decision making narrative: This is chronic recurrent pain. There is no red flags. She is not diabetic. I will place her on a short course of steroids which have evidently been effective. She is already on narcotics regularly. She will follow up with her physician. It sounds like she has a an appointment coming up this week already for recheck. She will talk to them about therapy. I explained that since the patient is already on chronic narcotics I cannot prescribe more controlled substances to go. I will give her a single dose of narcotic here. We discussed reasons to return that include fevers chills worsening pain, inability to ambulate, trouble urinating or moving bowels or any other concerns. Discharge Plan Triage Chief Complaint: Back ED Provider: Perez Holland Dx/Rx/DC Orders Clinical Impression: Sciatica of left side Instructions: ED Sciatica Prescriptions: New prednisone 20 mg tablet 60 mg PO DAILY Qty: 15 RF: 0 No Action (DME) Sleep apnea supplies Qty: 1 RF: 0 ferrous sulfate 325 mg (65 mg iron) tablet 325 mg PO DAILY Qty: 90 RF: 1 clonidine HCl 0.2 mg tablet 0.2 mg PO BID Qty: 180 RF: 1 allopurinol 100 mg tablet 100 mg PO DAILY Qty: 30 RF: 1 Breo Ellipta 100-25 mcg/dose blister with device 1 inh inhalation DAILY Qty: 60 RF: 6 levocetirizine [Xyzal] 5 mg tablet 5 mg PO QPM PRN (Reason: allergy symptoms) Qty: 90 RF: 1 losartan 50 mg tablet 50 mg PO DAILY Qty: 90 RF: 3 fluticasone propionate 50 mcg/actuation spray,suspension 2 spray INTRANASAL DAILY Qty: 16 RF: 3 albuterol sulfate [ProAir HFA] 90 mcg/actuation HFA aerosol inhaler 2 puff INHALATION Q6H PRN (Reason: shortness of breath or wheezing) Qty: 8.5 RF: 3 montelukast 10 mg tablet 10 mg PO QPM Qty: 60 RF: 3 cholecalciferol (vitamin D3) 125 mcg (5,000 unit) capsule 125 mcg PO DAILY Qty: 90 RF: 3 colchicine 0.6 mg tablet 0.6 mg PO BID RF: 0 pravastatin 20 mg tablet 20 mg PO DAILY Qty: 90 RF: 1 triamterene-hydrochlorothiazid 37.5-25 mg capsule 1 cap PO DAILY Qty: 90 RF: 1 Primary Care Provider: Tatyana Pretty Referrals: Tatyana Pretty MD [Primary Care Provider] - 3-5 Days Disposition Disposition: Home, Self Care
[2021-01-30] MEDS: predniSONE 20 MG Tablet 60 MG PO (17:12)
[2021-01-30] MEDS: oxyCODONE 5 MG Tablet PO (17:14)
== END 2021-01-30 17:18 | disposition home or self-care (01) ==
PROVIDERS: Emergency Provider Emergency Medicine; PCP Internal Medicine
DX: M54.32 Sciatica, left side (principal); E66.9 Obesity, unspecified; J44.9 Chronic obstructive pulmonary disease, unspecified; I10 Essential (primary) hypertension; E78.00 Pure hypercholesterolemia, unspecified; Z87.891 Personal history of nicotine dependence; Z79.899 Other long term (current) drug therapy
CPT/HCPCS: 99283

== ENCOUNTER → 2021-02-05 11:23 | Outpatient (CLI) | payer BC, SELFPAY ==
[2021-02-05 10:48] VITALS: BMI 42.5
[2021-02-05 12:42] LABS: Absolute Lymphocyte Count 3.71 X10^3/uL (0.83-4.51); Absolute Neutrophil Count 10.6 X10^3/uL (2.0-7.7); Basophil# 0.04 X10^3/uL; Basophil% 0.3 % (0-1); Eosinophil# 0.07 X10^3/uL; Eosinophils% 0.4 % (0-5); Hematocrit 38.7 % (37-47); Hemoglobin 12.9 g/dL (12.0-15.0); Lymphocyte # 3.71 X10^3/ul (0.83-4.51); Lymphocyte % 23.6 % (19-41); Mean Corp Hgb Conc 33.3 g/dL (32-36); Mean Corpuscular Hgb 31.9 pg (27.0-32.0); Mean Corpuscular Volume 95.6 fL (81-99); Mean Platelet Vol. 9.8 fl (6.2-12.0); Monocyte# 1.07 X10^3/uL; Monocyte% 6.8 % (0-10); NRBC Flagged by Analyzer 0 % (0-5); Neutrophil # 10.64 X10^3/uL (2.7-7.7); Neutrophil % 67.8 % (47-70); Platelet Count 327 K/mm3 (150-450); RBC Distribution Width CV 13.5 % (11.6-14.6); RBC Distribution Width SD 47.8 fl (35.1-43.9); Red Blood Count 4.05 M/mm3 (4.2-5.4); White Blood Count 15.7 K/mm3 (4.4-11.0)
[2021-02-05 12:56] LABS: Anion Gap 7 (5-15); BUN 28 mg/dL (7-18); Calcium,Total 9.3 mg/dL (8.5-10.1); Chloride 100 mmol/L (98-107); Creatinine, Serum 0.96 mg/dL (0.55-1.02); EST Glomerular Filtration Rate 62 mL/min (>60); Est Glom Filt Rate - Afr Amer 74 mL/min (>60); Glucose 71 mg/dL (74-106); Potassium 3.6 mmol/L (3.5-5.1); Sodium Level 134 mmol/L (136-145)
== END ==
PROVIDERS: PCP Internal Medicine; Referring Provider Nurse Practitioner Family; Visit Provider Nurse Practitioner Family
DX: I10 Essential (primary) hypertension (principal)
CPT/HCPCS: 36415; 80048; 85025

== ENCOUNTER 2021-04-23 12:30 | Outpatient (RCR) | payer BC, SELFPAY ==
[2021-02-05 10:48] VITALS: BMI 42.5
--- NOTE | 2021-02-13 16:57 | HP.PTEVAL ---
Patient's Visit Information DON GRADY is a 65 year old F referred to Physical Therapy by SCARLETT Palmer with a diagnosis of Low back pain. Date of Evaluation: 02/13/21 Physical Therapist: Nemesio Cruz DPT - Visit Plan Frequency: 2x /Week Duration: 4 Weeks Plan: Start with PT in aquatic setting working on core strengthening, hip strengthening. Postural awareness and stability. Add in general mobility to increase tolerance and light lumbar ROM as tolerated. - Subjective Pt. is here today for her initial evaluation with diagnosis of low back pain. Pt. reports having pain for a few months now. No mech of injury. Pt. has been to ER a few times for her pain. She has had an MRI showing degenerative changes in her lower spine and 3 disc herniation, small. Pt. reports her last episode of increased pain what very bad and resulting in B leg weakness as well (2 weeks ago). Pt. did see a surgeon who reported she was not a good surgical candidate at this point in time. Pt. is having pain in B posterior thigh and is having N/T in same region. She reports having difficulty sleeping with frequent waking up. Increased symptoms: standing, walking, sitting, lifting, straightening up. Decreases pain: lying down, pain medication. Pt. reports the pain never goes away. She is using a rollator for most mobility due to pain, but did not use one arriving today. Pt. reports having increased weakness in her LLE now. Pt. is here to reduce her pain and get back to being independent with all of actives. - Pain R thigh Pain Intensity (Out of 10): 7 Pain Intensity Range: 5, 10 L thigh Pain Intensity (Out of 10): 7 Pain Intensity Range: 5, 10 Lumbar spine Pain Intensity (Out of 10): 5 Pain Intensity Range: 5, 10 - Objective POSTURE: Pt. has general flexed posture with increased anterior pelvic tilt. Pt. unable to fully get into lumbar neutral secondary to pain in lumbar spine and B posterior thigh. PALPATION: Pt. has increased tenderness at lumbar erector spinae. Pt. reports pain in B posterior thigh. Pt. has hypomobility of her spine throughout. NEURO: ROM: LUMBAR SPINE: flexion min loss mild increase NW, extension max loss increase NW, SB mod loss B increase NW, rotation mod loss increase NW bilat. Pt. has tightness throughout B hips, but does not cause her low back or B thigh pain. MMT: Pt. has 4+/5 strength throughout BLEs, except 4/5 L knee ext and B hip flexion/abd/ext 4/5. Core strength- poor. GAIT: Pt. has general flexed posture. Increased lateral sway with gait. She was ambulating without AD today, but reports using rollator frequently. Pt. has decreased step length bilaterally and heavily flexed posture. Pt. fatigues rapidly with gait as well. - Balance/Special Test Scores Oswestry Low Back Score: 32 - Goals Goal 1:: LTG: Pt. to be I with HEP. Goal Time Frame: 4-6 Weeks Goal 2:: STG: Pt. to have increased lumbar ROM by 25% in all directions with 0-2/10 pain. Goal Time Frame: 2 Weeks Goal 3:: STG: Pt. to sleep throughout the night with 0-2/10 pain in BLEs and lumbar spine. Goal Time Frame: 2 Weeks Goal 4:: LTG: Pt. to ambulate with or without AD 500'+ with 0-2/10 pain allowing for increased tolerance to functional mobility. Goal Time Frame: 4-6 Weeks Goal 5:: LTG: Pt. to have increased BLE and core strength increased to at least 4+/5 throughout. Goal Time Frame: 4-6 Weeks - Rehabilitation Potential Physical Therapy Diagnosis: Pt. has signs and symptoms consistent with Low back pain. She has seen multiple physicians including PCP, pain management and surgeon. She has received 1 set of lumbar injections with mild relief. She has marked loss of lumbar ROM, decreased core and BLE strength and difficulty with walking. Patient would benefit from PT in aquatic setting to increase her core/hip strength, lumbar mobility and general tolerance to walking and functional mobility. Rehabilitation Potential: Good - Anticipated Interventions Patient/Client Instruction: Educate patient on: Condition, Plan of Care, Risk Factors, Benefits of Fitness Program For the Purpose of:: To improve decision making, To facilitate caregiver knowledge, To improve self management, To prevent re-injury, To improve ability to perform tasks related to life management Therapeutic Exercise to Include: Strength training, Power training, Balance training, Body mechanics, Postural training, In an aquatic setting, Active ROM, Dynamic Lumbar Stabilization, Mya Exercises For the Purpose of:: To decrease pain, To increase ROM, To improve nutrient delivery to tissue, To increase oxygenation perfusion, To improve muscle performance and motor function, To improve ability to perform ADL's, To increase tolerance to activity/condition/position, To improve performance and independence with ADL's, To decrease level of supervision to perform tasks, To improve health of tissue, To decrease soft tissue restriction Thank you for the opportunity to evaluate your patient. For Medicare and Medicare HMO plans, please review the plan of care and approve it. It will need to be FAXED BACK to us at [phone] for Medicare purposes. For Medicare only, by signing this I certify the plan of care. Please let me know if there are questions or concerns regarding this plan of care. Physician Signature: Date:
--- NOTE | 2021-06-18 13:24 | HP.PTDCNRP_ITS ---
DON GRADY was seen in my office for initial evaluation on 02/13/21. The following Plan of Care was established for this patient: Initial Frequency: 2x /Week Initial Duration: 4 Weeks Patient/Client Instruction: Educate patient on: Condition, Plan of Care, Risk Factors, Benefits of Fitness Program For the Purpose of:: To improve decision making, To facilitate caregiver knowledge, To improve self management, To prevent re-injury, To improve ability to perform tasks related to life management Therapeutic Exercise to Include: Strength training, Power training, Balance training, Body mechanics, Postural training, In an aquatic setting, Active ROM , Dynamic Lumbar Stabilization, Mya Exercises For the Purpose of:: To decrease pain, To increase ROM, To improve nutrient delivery to tissue, To increase oxygenation perfusion, To improve muscle performance and motor function, To improve ability to perform ADL's, To increase tolerance to activity/condition/position, To improve performance and independence with ADL's, To decrease level of supervision to perform tasks, To improve health of tissue, To decrease soft tissue restriction This patient was last seen in our office 04/26/21. Pertinent comments regarding their Physical therapy will appear below: Pt. was seen for her low back pain in aquatic therapy. She has not been seen in several months. She will be DC from PT at this point in time. At this point I will be discontinuing this patient from physical therapy. I would be happy to see this patient again in the future if found appropriate by the physician. Thank you! Nemesio Cruz, DPT Balance/Gait/Functional tests - Balance/Special Test Scores Oswestry Low Back Score: 32
== END 2021-04-23 19:00 | disposition home or self-care (01) ==
LOC: PT 12:30
PROVIDERS: PCP Internal Medicine; Referring Provider Nurse Practitioner Family; Visit Provider Nurse Practitioner Family
DX: M54.9 Dorsalgia, unspecified (principal); G89.29 Other chronic pain; M79.606 Pain in leg, unspecified
CPT/HCPCS: 97113; 97161

== ENCOUNTER → 2021-05-14 12:57 | Outpatient (CLI) | payer MEDICARE, SELFPAY ==
--- NOTE | 2021-05-14 13:05 | ECHOCS_ITS ---
Reason For Study: MICAELA, Edema Procedure This was a 2D Doppler, Color Flow transthoracic echocardiogram. The study was technically difficult. Contrast injection was performed. Exam performed in department. Left Ventricle Normal LV size. Moderate concentric left ventricular hypertrophy. Left ventricular systolic function is hyperdynamic. The estimated ejection fraction is 75 %. No evidence for diastolic dysfunction. No regional wall motion abnormalities noted. Right Ventricle Normal RV size. Normal systolic function. Atria Normal left atrium. Normal right atrium. No doppler evidence for ASD. Mitral Valve There is no mitral annular calcification. Normal mitral valve. Trivial mitral valve insufficiency. Tricuspid Valve Normal tricuspid valve. Trivial tricuspid valve insufficiency. Unable to estimate RV systolic pressure/pulmonary artery pressure due to technically difficult study. Aortic Valve Trisinus/trileaflet aortic valve. Normal aortic valve. Pulmonic Valve The pulmonic valve is not well visualized. Great Vessels Normal sized aortic root. Pericardium/Pleural No pericardial effusion. Medication 22 gauge I.V. with prn adaptor inserted into right arm. Diluted definity 2ml given slow IV push to enhance endocardial definition. MMode/2D Measurements & Calculations LVIDd: 3.7 cm IVSd: 1.4 cm Ao root diam: 2.9 cm LVIDs: 2.0 cm LVPWd: 1.3 cm FS: 45.6 % LAV(MOD-bp): 31.8 ml LA A4 area: 11.1 cm2 RA A4 area: 12.2 cm2 LAV(MOD-bp) Indexed: 16.6 ml/m2 LAV(MOD-sp2): 38.3 ml LAV(MOD-sp4): 25.3 ml Time Measurements MV dec time: 0.26 sec Doppler Measurements & Calculations MV E max jose enrique: 98.6 cm/sec Lat Peak E' Jose Enrique: 11.9 cm/sec Med Peak E' Jose Enrique: 7.7 cm/sec MV A max jose enrique: 124.4 cm/sec E/E' lat: 8.3 E/E' med: 12.8 MV E/A: 0.79 MV V2 max: 142.5 cm/sec MV P1/2t max jose enrique: 119.4 cm/sec LV V1 max: 149.6 cm/sec MV max P.1 mmHg MV P1/2t: 69.5 msec LV V1 max P.9 mmHg MV V2 mean: 89.5 cm/sec MV dec slope: 503.4 cm/sec2 MV mean P.8 mmHg MV V2 VTI: 30.3 cm MVA(P1/2t): 3.2 cm2 PA V2 max: 130.0 cm/sec ECHO/Echo Complete W/ Contrast Interpretation Summary The study was technically difficult. Contrast injection was performed. Left ventricular systolic function is hyperdynamic. The estimated ejection fraction is 75 %. Moderate concentric left ventricular hypertrophy. Trivial mitral valve insufficiency. Trivial tricuspid valve insufficiency. Unable to estimate RV systolic pressure/pulmonary artery pressure due to techni meghan difficult study. No evidence for diastolic dysfunction. Comment: Late peaking spectral Doppler pattern in the mid LV cavity with a peak velocity approaching 2 m/s with a peak gradient of approximately 16 mmHg compatible with a hyperdyna landen state. Ordering Physician: Theresa Pelayo Referring Physician: Tatyana Pretty Performed By: Amaury Rodriguez RCS
== END ==
PROVIDERS: PCP Internal Medicine; Referring Provider Physician Assistant; Visit Provider Physician Assistant
DX: R60.0 Localized edema (principal); G47.33 Obstructive sleep apnea (adult) (pediatric)
CPT/HCPCS: 93306; Q9957; A4216; C8929

== ENCOUNTER → 2021-07-01 15:49 | Outpatient (CLI) | payer MEDICARE, SELFPAY ==
[2021-07-01 16:59] LABS: ALB/GLOB Ratio 1.1 RATIO (0.9-2.4); AST(SGOT) 25 U/L (15-37); Alanine Aminotransfer ALT/SGPT 39 U/L (13-56); Albumin, Serum 4.1 g/dL (3.2-5.0); Alkaline Phosphatase 107 U/L (45-117); Anion Gap 11 (5-15); BUN 20 mg/dL (7-18); BUN/Creat Ratio 15.4 RATIO (10-20); Calcium,Total 9.4 mg/dL (8.5-10.1); Chloride 103 mmol/L (98-107); Cholesterol 188 mg/dL (200); EST Glomerular Filtration Rate 44 mL/min (>60); Est Glom Filt Rate - Afr Amer 53 mL/min (>60); Globulin 3.9 g/dL (2.2-4.2); Glucose 131 mg/dL (74-106); High Density Lipoprotein 45 mg/dL; Potassium 3.6 mmol/L (3.5-5.1); Sodium Level 139 mmol/L (136-145); Triglycerides 322 mg/dL; Very Low Density Lipoprotein 64 mg/dL (5-40)
== END ==
PROVIDERS: PCP Internal Medicine; Visit Provider Internal Medicine
DX: I10 Essential (primary) hypertension (principal)
CPT/HCPCS: 36415; 80053; 80061

== ENCOUNTER 2021-09-16 15:45 | Outpatient (CLI) | payer MEDICARE, SELFPAY ==
[2021-09-16 16:51] LABS: Anion Gap 8 (5-15); BUN 18 mg/dL (7-18); BUN/Creat Ratio 15.5 RATIO (10-20); Calcium,Total 9.1 mg/dL (8.5-10.1); Chloride 105 mmol/L (98-107); Creatinine, Serum 1.16 mg/dL (0.55-1.02); EST Glomerular Filtration Rate 50 mL/min (>60); Est Glom Filt Rate - Afr Amer 60 mL/min (>60); Glucose 109 mg/dL (74-106); Potassium 3.4 mmol/L (3.5-5.1); Sodium Level 137 mmol/L (136-145)
== END 2021-09-16 23:59 | disposition home or self-care (01) ==
LOC: BIMLAB 15:52
PROVIDERS: PCP Internal Medicine; Referring Provider Internal Medicine; Visit Provider Internal Medicine
DX: I10 Essential (primary) hypertension (principal)
CPT/HCPCS: 36415; 80048

== ENCOUNTER 2021-10-07 14:28 | Outpatient (CLI) | payer MEDICARE, SELFPAY ==
[2021-10-07 14:30] LABS: Bacteria 0 SEEN /hpf (None Seen); Mucous, Urine 0 SEEN /hpf (<or=2+); Red Blood Cells-Urine 0 SEEN /hpf (0-5); Squamous Epithelial Cells - UA 0 SEEN /hpf (5-10); White Blood Cells 0 SEEN /hpf (0-5)
[2021-10-07 15:32] LABS: Color, Urine Straw (Yellow); Glucose, Dipstick Normal (Normal); Ketone-Dipstick Negative (Negative); Leukocyte Esterase-Dipstick 25 /ul (Negative); Nitrite-Dipstick Negative (Negative); Occult Blood-Urine Negative /ul (Negative); Protein-Dipstick Negative (Negative); Urine Bilirubin Dipstick Negative (Negative); Urine Clarity Sl. Cloudy (Clear); Urine Urobilinogen Normal (Normal); Urine pH 6.5 (5.0 - 8.0)
== END 2021-10-07 23:59 | disposition home or self-care (01) ==
LOC: LABSPEC 14:29
PROVIDERS: PCP Internal Medicine; Referring Provider Physician Assistant; Visit Provider Physician Assistant
DX: R30.0 Dysuria (principal)
CPT/HCPCS: 81001

== ENCOUNTER → 2022-02-11 | Outpatient (CLI) | payer MEDICARE, SELFPAY ==
[2022-02-11 17:40] LABS: Anion Gap 9 (5-15); BUN 26 mg/dL (7-18); BUN/Creat Ratio 20.6 RATIO (10-20); Chloride 106 mmol/L (98-107); Cholesterol 172 mg/dL (200); Creatinine, Serum 1.26 mg/dL (0.55-1.02); EST Glomerular Filtration Rate 45 mL/min (>60); Est Glom Filt Rate - Afr Amer 55 mL/min (>60); Glucose 110 mg/dL (74-106); High Density Lipoprotein 50 mg/dL; Potassium 3.6 mmol/L (3.5-5.1); Sodium Level 138 mmol/L (136-145); Triglycerides 354 mg/dL; Very Low Density Lipoprotein 71 mg/dL (5-40)
== END | disposition home or self-care (01) ==
LOC: BIMLAB 15:05
PROVIDERS: PCP Internal Medicine; Visit Provider Internal Medicine
DX: I10 Essential (primary) hypertension (principal); E78.2 Mixed hyperlipidemia
CPT/HCPCS: 36415; 80048; 80061

== ENCOUNTER → 2022-07-30 | Outpatient (CLI) | payer MEDICARE, SELFPAY ==
--- NOTE | 2022-07-30 12:48 | BI_ITS ---
MAMMOGRAPHY - BILATERAL SCREENING REASON FOR EXAM: Female, 67 years old. Routine annual screening examination. PERTINENT HISTORY: Sisters with breast cancer. Remote right excisional breast biopsy. TECHNIQUE: Digital bilateral breast pillo (3D mammographic acquisition) in the CC and MLO projections. 2-D mediolateral oblique (MLO) and craniocaudad (CC) views of both breasts were obtained. CAD: Full Field Digital Mammography with Computer Added Detection was performed. COMPARISON: Comparison is made with prior examination 05/09/2020 and 09/30/2018. FINDINGS: Breast Composition: The breasts are heterogeneously dense, which may obscure small masses. There are no dominant masses or suspicious calcifications. Skin thickening and deformity in the inferior lateral aspect of the right breast in keeping with prior history of right excisional breast biopsy. Stable small benign appearing bilateral axillary nodes. No other significant abnormalities are identified. There has been no significant change since the prior study. BI/SCRN MAMM (CAD)W/PILLO BILAT IMPRESSION: Stable bilateral screening mammogram. Yearly follow-up mammogram recommended. (A) ASSESSMENT CATEGORY: BIRADS Category 2: Benign. A letter regarding these results will be sent to the patient by the facility within 30 days. Approximately 10% of breast cancers are not detected by mammography. A normal mammogram should not delay biopsy of a clinically suspicious abnormality. [id number] Electronically Signed: Carl Castañeda MD at 14:13 EST ,
== END | disposition home or self-care (01) ==
LOC: OPBI 12:46
PROVIDERS: PCP Internal Medicine; Referring Provider Nurse Practitioner Family; Visit Provider Nurse Practitioner Family
DX: Z12.31 Encounter for screening mammogram for malignant neoplasm of breast (principal); Z80.3 Family history of malignant neoplasm of breast
CPT/HCPCS: 77063; 77067

== ENCOUNTER → 2022-08-27 | Outpatient (CLI) | payer MEDICARE, SELFPAY ==
[2022-08-27 16:48] LABS: Absolute Lymphocyte Count 2.88 X10^3/uL (0.83-4.51); Absolute Neutrophil Count 4.6 X10^3/uL (2.0-7.7); Basophil# 0.04 X10^3/uL; Basophil% 0.5 % (0-1); Eosinophil# 0.11 X10^3/uL; Eosinophils% 1.3 % (0-5); Hematocrit 34.9 % (37-47); Hemoglobin 11.1 g/dL (12.0-15.0); Lymphocyte # 2.88 X10^3/ul (0.83-4.51); Mean Corp Hgb Conc 31.8 g/dL (32-36); Mean Corpuscular Hgb 31.2 pg (27.0-32.0); Mean Platelet Vol. 10.1 fl (6.2-12.0); Monocyte# 0.54 X10^3/uL; Monocyte% 6.6 % (0-10); NRBC Flagged by Analyzer 0 % (0-5); Neutrophil # 4.63 X10^3/uL (2.7-7.7); Neutrophil % 56.2 % (47-70); Platelet Count 358 K/mm3 (150-450); RBC Distribution Width CV 13.1 % (11.6-14.6); RBC Distribution Width SD 46.9 fl (35.1-43.9); Red Blood Count 3.56 M/mm3 (4.2-5.4); White Blood Count 8.2 K/mm3 (4.4-11.0)
[2022-08-27 17:45] LABS: ALB/GLOB Ratio 1.1 RATIO (0.9-2.4); AST(SGOT) 19 U/L (15-37); Alanine Aminotransfer ALT/SGPT 22 U/L (13-56); Albumin, Serum 4.1 g/dL (3.2-5.0); Alkaline Phosphatase 84 U/L (45-117); Anion Gap 9 (5-15); BUN 34 mg/dL (7-18); BUN/Creat Ratio 24.1 RATIO (10-20); Calcium,Total 9.3 mg/dL (8.5-10.1); Chloride 109 mmol/L (98-107); Cholesterol 152 mg/dL (200); Creatinine, Serum 1.41 mg/dL (0.55-1.02); EST Glomerular Filtration Rate 40 mL/min (>60); Est Glom Filt Rate - Afr Amer 48 mL/min (>60); Globulin 3.6 g/dL (2.2-4.2); Glucose 105 mg/dL (74-106); High Density Lipoprotein 56 mg/dL; Potassium 3.9 mmol/L (3.5-5.1); Protein, Total 7.7 g/dL (6.4-8.2); Sodium Level 143 mmol/L (136-145); Triglycerides 317 mg/dL; Very Low Density Lipoprotein 63 mg/dL (5-40)
== END | disposition home or self-care (01) ==
LOC: BIMLAB 15:11
PROVIDERS: PCP Internal Medicine; Referring Provider Internal Medicine; Visit Provider Internal Medicine
DX: I10 Essential (primary) hypertension (principal)
CPT/HCPCS: 36415; 80053; 80061; 85025

== ENCOUNTER → 2022-11-25 | Outpatient (CLI) | payer MEDICARE, SELFPAY ==
[2022-11-25 17:19] LABS: ALB/GLOB Ratio 1.2 RATIO (0.9-2.4); AST(SGOT) 20 U/L (15-37); Alanine Aminotransfer ALT/SGPT 22 U/L (13-56); Albumin, Serum 4.2 g/dL (3.2-5.0); Alkaline Phosphatase 88 U/L (45-117); Anion Gap 9 (5-15); BUN 23 mg/dL (7-18); Calcium,Total 9.1 mg/dL (8.5-10.1); Chloride 109 mmol/L (98-107); Cholesterol 161 mg/dL (200); Creatinine, Serum 1.35 mg/dL (0.55-1.02); EST Glomerular Filtration Rate 42 mL/min (>60); Est Glom Filt Rate - Afr Amer 50 mL/min (>60); Globulin 3.5 g/dL (2.2-4.2); Glucose 118 mg/dL (74-106); High Density Lipoprotein 64 mg/dL; Potassium 3.8 mmol/L (3.5-5.1); Protein, Total 7.7 g/dL (6.4-8.2); Sodium Level 141 mmol/L (136-145); Triglycerides 277 mg/dL; Very Low Density Lipoprotein 55 mg/dL (5-40)
== END | disposition home or self-care (01) ==
LOC: BIMLAB 15:16
PROVIDERS: PCP Internal Medicine; Visit Provider Internal Medicine
DX: E78.5 Hyperlipidemia, unspecified (principal); I10 Essential (primary) hypertension
CPT/HCPCS: 36415; 80053; 80061

== ENCOUNTER → 2023-01-29 | Outpatient (CLI) | payer MEDICARE, SELFPAY ==
[2023-01-29 16:30] LABS: Absolute Lymphocyte Count 2.41 X10^3/uL (0.83-4.51); Absolute Neutrophil Count 5.8 X10^3/uL (2.0-7.7); Basophil# 0.05 X10^3/uL; Basophil% 0.6 % (0-1); Eosinophil# 0.14 X10^3/uL; Eosinophils% 1.6 % (0-5); Hemoglobin 11.7 g/dL (12.0-15.0); Lymphocyte # 2.41 X10^3/ul (0.83-4.51); Lymphocyte % 26.8 % (19-41); Mean Corp Hgb Conc 33.4 g/dL (32-36); Mean Corpuscular Hgb 31.8 pg (27.0-32.0); Mean Corpuscular Volume 95.1 fL (81-99); Mean Platelet Vol. 9.8 fl (6.2-12.0); Monocyte# 0.55 X10^3/uL; Monocyte% 6.1 % (0-10); NRBC Flagged by Analyzer 0 % (0-5); Neutrophil # 5.79 X10^3/uL (2.7-7.7); Neutrophil % 64.3 % (47-70); Platelet Count 336 K/mm3 (150-450); RBC Distribution Width CV 13.5 % (11.6-14.6); RBC Distribution Width SD 47.8 fl (35.1-43.9); Red Blood Count 3.68 M/mm3 (4.2-5.4)
[2023-01-29 17:16] LABS: ALB/GLOB Ratio 1.1 RATIO (0.9-2.4); AST(SGOT) 21 U/L (15-37); Alanine Aminotransfer ALT/SGPT 20 U/L (13-56); Albumin, Serum 4.3 g/dL (3.2-5.0); Alkaline Phosphatase 95 U/L (45-117); Anion Gap 6 (5-15); BUN 16 mg/dL (7-18); Calcium,Total 9.2 mg/dL (8.5-10.1); Chloride 109 mmol/L (98-107); Creatinine, Serum 1.14 mg/dL (0.55-1.02); EST Glomerular Filtration Rate 50 mL/min (>60); Est Glom Filt Rate - Afr Amer 61 mL/min (>60); Globulin 3.9 g/dL (2.2-4.2); Glucose 114 mg/dL (74-106); Potassium 3.7 mmol/L (3.5-5.1); Protein, Total 8.2 g/dL (6.4-8.2); Sodium Level 138 mmol/L (136-145)
== END | disposition home or self-care (01) ==
LOC: BIMLAB 16:03
PROVIDERS: PCP Internal Medicine; Referring Provider Internal Medicine; Visit Provider Internal Medicine
DX: I10 Essential (primary) hypertension (principal)
CPT/HCPCS: 36415; 80053; 85025

== ENCOUNTER → 2023-08-07 | Outpatient (CLI) | payer MEDICARE, SELFPAY ==
[2023-08-07 15:32] LABS: Bacteria 0 SEEN /hpf (None Seen); Mucous, Urine 0 SEEN /hpf (<or=2+)
--- OUTSIDE RECORDS SUMMARY | 2023-08-07 15:34 | XMS RPT_ITS | CCD ---
Author Name Unknown Address [address] [place] [address] Organization [facility] Results Test Name Value Interpretation Reference Range Facil ity Summary Purpose Family History No Family History Records Found Advance Directives No Advanced Directives Records Found Additional Source Comments INFORMATION SOURCE (unrecogn ized section and content) FOR RECORDS PERTAINING TO PATIENTS WHO ARE OR HAVE BEEN ENROLLED IN A CHEMICAL DEPENDENCY/SUBSTANCEABUSE PROGRAM, SOME INFORMATION MAY BE OMITTED. This clinical summary was aggregated from multiple sources. Caution should be exercised in using it in the provision of clinical care. This summary normalizes information from multiple sources, and as a consequence, information in this document may materially change the coding, format and clinical context of patient data. In addition, data may be omitted in some cases. CLINICAL DECISIONS SHOULD BE BASED ON THE PRIMARY CLINICAL RECORDS. [employer]. provides no warranty or guarantee of the accuracy or completeness of information in this document.
[2023-08-07 16:56] LABS: Color, Urine Yellow (Yellow); Glucose, Dipstick Normal (Normal); Ketone-Dipstick Negative (Negative); Leukocyte Esterase-Dipstick 500 /ul (Negative); Nitrite-Dipstick Negative (Negative); Occult Blood-Urine 10 /ul (Negative); Protein-Dipstick 15 mg/dl (Negative); Urine Bilirubin Dipstick Negative (Negative); Urine Clarity Clear (Clear); Urine Urobilinogen Normal (Normal)
[2023-08-07 16:57] LABS: Anion Gap 7 (5-15); BUN 51 mg/dL (7-18); BUN/Creat Ratio 11.2 RATIO (10-20); Calcium,Total 9.3 mg/dL (8.5-10.1); Chloride 110 mmol/L (98-107); Creatinine, Serum 4.56 mg/dL (0.55-1.02); EST Glomerular Filtration Rate 10 mL/min (>60); Est Glom Filt Rate - Afr Amer 12 mL/min (>60); Glucose 109 mg/dL (74-106); Potassium 4.3 mmol/L (3.5-5.1); Sodium Level 139 mmol/L (136-145)
[2023-08-07 17:25] LABS: White Blood Cells 10-25 SEEN /hpf (0-5)
[2023-08-07 17:26] LABS: Red Blood Cells-Urine 0-5 SEEN /hpf (0-5); Squamous Epithelial Cells - UA 0-5 SEEN /hpf (5-10)
== END | disposition home or self-care (01) ==
LOC: BIMLAB 15:14
PROVIDERS: PCP Internal Medicine; Referring Provider Internal Medicine; Visit Provider Internal Medicine
DX: N39.0 Urinary tract infection, site not specified (principal); I10 Essential (primary) hypertension
CPT/HCPCS: 36415; 80048; 81001; 87077; 87086; 87088; 87186

== ENCOUNTER 2023-08-10 15:46 | Inpatient (IN) | payer MEDICARE, SELFPAY ==
[2023-08-10 15:49] VITALS: BP 119/66; PULSE 70; RESP 18; TEMP 36.3; O2SAT 100; BMI 42.0
--- NOTE | 2023-08-10 16:52 | CT_ITS ---
INDICATION: acute renal failure abdominal pain EXAMINATION: CT ABDOMEN AND PELVIS WITHOUT CONTRAST - CT Abdomen And Pelvis W/O Contrast Injection TECHNIQUE: Helically acquired images were obtained of the abdomen and pelvis without oral or IV contrast. A radiation dose optimization technique was used for this scan. IV Contrast dosage and agent: None. Oral contrast: None. RADIATION DOSAGE (If Supplied By Facility): CTDIvol = ( 21.18 ) mGy, DLP = ( 831.68 ) mGycm COMPARISON: 08/14/2018 FINDINGS: LOWER CHEST: 1. Bibasilar atelectasis, pleural thickening and trace pleural fluid on the RIGHT. No consolidation. 2. No cardiomegaly or pericardial effusion. LIVER: The liver has normal configuration and density given the limitation of noncontrast exam. No focal mass. GALLBLADDER AND BILIARY TREE: No calcified gallstones. No gallbladder distension or wall edema. No intra- or extrahepatic biliary ductal dilation. PANCREAS: No focal cystic or solid mass. SPLEEN: Normal size without focal cystic or solid mass. ADRENAL GLANDS: No nodules. KIDNEYS AND URETERS: Normal renal size and position. No hydronephrosis. Minimal perinephric soft tissue stranding. PERITONEUM: No ascites or free air. No other fluid collection. BOWEL: No evidence of acute appendicitis. No stomach or bowel distension. No focal inflammatory change. Diffuse scattered diverticula without diverticulitis. LYMPH NODES: No enlarged mesenteric or retroperitoneal lymph nodes. VESSELS: Diffuse vascular calcifications throughout the aorta and iliac vessels without aneurysmal dilatation. URINARY BLADDER: Unremarkable. REPRODUCTIVE ORGANS: Normal appearance of the uterus and pelvic sidewalls. No free fluid. ABDOMINAL WALL: No discrete abdominal or pelvic wall hernia. BONES: Diffuse lumbar spondylosis most marked at 45i, mild grade 1 anterolisthesis noted. No fractures or acutely acquired canal stenosis. Chronic canal and foraminal narrowing however noted at L4-5. CT/Abdomen/Pelvis without Cont IMPRESSION: 1. No masses bowel obstruction abscess free fluid or free air. Moderate diverticulosis without diverticulitis.` 2. The appendix is visualized and appears normal. 3. No evidence renal calcifications or obstructive uropathy. Mild perinephric soft tissue stranding which is nonspecific. 4. No evidence cholelithiasis or ductal dilatation. 5. Diffuse interstitial prominence in atelectasis at the lung bases, pleural thickening trace RIGHT effusion. 6. Diffuse lumbar spondylosis most marked at L4-5. Grade 1 anterolisthesis of L4 and L5 without change. Electronically Signed: Brendon Paz MD at 18:40 EST ,
--- NOTE | 2023-08-10 16:54 | EDS_ITS ---
HPI History of Present Illness Chief Complaint: Abn Labs Informant: patient Narrative Narrative: 68-year-old female presenting to the emergency room with abnormal creatinine found on blood work. Patient has a history of hypertension treated with multiple agents. She has been experiencing lymphedema that is chronic. She saw primary care on Thursday and had blood work that showed a creatinine of 4.56 with a potassium of 4.3. Over the weekend she held her losartan and drink plenty of water and had a repeat blood draw this morning. Creatinine this morning reported to be 5.12 with a potassium of 4.5 CO2 of 21 gap of 18. She states that she feels like she is emptying her bladder. She notes a left sided abdominal discomfort that waxes and wanes. It started after she was told her creatinine was abnormal. She notes a discomfort at the end of urination. She states her blood pressure has been well-controlled. She is a former smoker. No history of diabetes. [facility] Medical History Acute frontal sinusitis, unspecified Acute maxillary sinusitis, unspecified Acute sinusitis, unspecified BARBARA (acute kidney injury) Alcohol abuse Anxiety and depression Arthritis Breast lump Carpal tunnel syndrome Chronic bronchitis CKD (chronic kidney disease), stage III Drug abuse Flu vaccine need Frequent urinary tract infections GERD (gastroesophageal reflux disease) Gout H/O emotional problems Health care maintenance Heart murmur High blood pressure High cholesterol Hives Hyperlipidemia Hypertension Mood changes Neuropathy Seasonal allergies Urinary frequency Vitamin deficiency Home Medications Sleep apnea supplies #1 ea 02/22/19 [Rx Last Taken Unknown] diclofenac sodium 1 % topical gel (Voltaren Arthritis Pain) 4 g topical ONCE PRN pain #100 grams 02/05/21 [Rx Last Taken Unknown] disability placard #1 ea 02/28/21 [Rx Last Taken Unknown] walker #1 ea 02/28/21 [Rx Last Taken Unknown] Circaid #2 ea 05/03/21 [Rx Last Taken Unknown] blood pressure monitor #1 ea 05/06/21 [Rx Last Taken Unknown] compression socks #3 ea 05/06/21 [Rx Last Taken Unknown] cholecalciferol (vitamin D3) 125 mcg (5,000 unit) capsule 125 mcg PO DAILY #90 caps 07/29/21 [Rx Last Taken 08/10/23] albuterol sulfate 90 mcg/actuation aerosol inhaler (ProAir HFA) 2 puff inhalation Q4H PRN shortness of breath or wheezing 3 months #8.5 grams 05/11/23 [Rx Last Taken 08/10/23] fluticasone propionate 50 mcg/actuation nasal spray,suspension 2 spray intranasal DAILY #3 ea 05/11/23 [Rx Last Taken 08/09/23] levocetirizine 5 mg tablet (Xyzal) 5 mg PO QPM PRN allergy symptoms #90 tabs 05/11/23 [Rx Last Taken 08/09/23] amlodipine 10 mg tablet 10 mg PO DAILY #90 tabs 08/07/23 [Rx Last Taken 08/10/23] clonidine HCl 0.3 mg tablet 0.3 mg PO TID #180 tabs 08/07/23 [Rx Last Taken 08/10/23] fenofibrate 54 mg tablet 108 mg (2 x 54 mg) PO DAILY #180 tabs 08/07/23 [Rx Last Taken 08/10/23] losartan 100 mg tablet 100 mg PO DAILY #90 tabs 08/07/23 [Rx Last Taken Unknown] montelukast 10 mg tablet 10 mg PO QPM #90 tabs 08/07/23 [Rx Last Taken 08/09/23] pravastatin 20 mg tablet 20 mg PO DAILY #90 tabs 08/07/23 [Rx Last Taken 08/09/23] tvqmwusc-[id number]-axr C 250 mg-herbal no.124 8.875 mg chewable tablet (Airborne (ascorbic acid)) 1 tab PO DAILY 08/10/23 [History Last Taken 08/10/23] Allergy/AdvReac Type Severity Reaction Status Date / Time iodine Allergy Severe Itching, Verified 08/10/23 15:49 SOB, rashes shellfish derived Allergy Severe Itching, Verified 08/10/23 15:49 SOB, swelling hydrochlorothiazide Allergy Unknown Verified 08/10/23 15:49 Fish Containing Products AdvReac Severe Shortness Verified 08/10/23 15:49 of breath, rashes Family History Sister Cancer Diabetes Brother Cancer Father CVA (cerebral vascular accident) Hypertension Mother Hypertension Sister Hypertension Daughter Hypertension Daughter Diabetes Other Alcoholism Anemia Anxiety Arthritis Asthma Bowel disease Breast cancer Cervical cancer Colon cancer Depression High cholesterol Hormone Problems Myocardial infarction Osteoporosis Ovarian cancer PTSD (post-traumatic stress disorder) Respiratory disease Severe allergy Thyroid disorder Surgical History History of lumpectomy of right breast Social History household members: none housing: house number of children: 3 current occupational status: retired history of recent travel: No Smoking Status: Former smoker alcohol intake: current alcohol intake frequency: a few times a week Alcohol type: beer and wine details: 12 drinks per week substance use type: does not use what type of physical activity do you participate in: none seatbelt use: always do you feel safe at home: Yes additional social history: single ROS ROS ED ROS Narrative Feeling of increased fatigue and needing to sleep more. She notes some puffiness of her periorbital tissue. Constitutional Constitutional ED: Denies chills, fever(s) or weight loss Eyes Eyes: Denies change in vision or diplopia ENT ENT ED: Denies ear pain, rhinorrhea or sore throat Cardiovascular Cardiovascular: Denies chest pain, orthopnea, palpitations or racing heartbeat Respiratory/Chest Respiratory/Chest: Denies cough, dyspnea or orthopnea Gastrointestinal Gastrointestinal: Reports abdominal pain; Denies constipation, diarrhea, nausea or vomiting Genitourinary Genitourinary ED: Reports other Details: Urinary discomfort at the end of urination ; Denies dysuria, hematuria or urinary frequency Musculoskeletal Musculoskeletal: Reports other Details: Left greater than right leg swelling which is chronic ; Denies arthralgias or myalgias Integumentary Denies abscess or rash Neurologic Neurologic: Denies headache(s) or weakness Psychiatric Psychiatric: Denies anxiety, depression, suicidal ideation or suicidal thoughts Endocrine Endocrinology: Denies polydipsia, polyphagia or polyuria Allergic/Immunologic Allergic/Immunologic ED: Denies mouth swelling, tongue swelling or urticaria EXAM Physical Exam Narrative Exam Narrative: Well-appearing female sitting comfortably in the bed. No acute distress. Const Vital Signs: 08/10/23 15:49 08/10/23 17:13 08/10/23 18:36 Temperature 97.4 F L Temperature Source Temporal Pulse Rate 70 65 Respiratory Rate 18 14 Respiratory Effort Normal Respiratory Pattern Normal Blood Pressure 119/66 121/66 H Blood Pressure Mean 83 84 Pulse Ox 100 99 Oxygen Delivery Method Room Air Room Air Positive well nourished and well developed General Appearance ED: well developed HEENT Reports normocephalic, head/scalp atraumatic and moist mucous membranes HEENT Narrative: Mild periorbital edema. No ptosis. Eyes PERRL and EOMs intact bilaterally Neck no lymphadenopathy, supple and no JVD Resp normal respiratory effort and clear to auscultation bilaterally Cardio regular rate, regular rhythm and no murmurs GI non-tender Inspection: Negative for abdominal distention Palpation: soft and tender LUQ; Negative for guarding or rebound tenderness present Back/Spine no CVA tenderness and normal ROM Extremity General Extremety ED: Yes edema General Extremity: edema bilateral lower extremity Details: mild Neuro oriented x3 and CN's II-XII intact bilaterally Sensorium / Orientation: alert Motor Exam: strength 5/5 throughout Psych mental status grossly normal Mood & Affect: Negative for depressed or tearful Skin no rashes or lesions noted and no wounds MDM MDM MDM Narrative Medical decision making narrative: White count returns at 7.9 with a hemoglobin 9.8 which is about 2 g lower than she was about 1 year ago. This may be contributing to her increased fatigue la tely. Creatinine was drawn this morning I did not repeat it. Liver enzymes normal. Urinalysis with 15 protein. No overt infection. Urinary sodium at 40 urinary creatinine 22.2 FENa 6.7. My independent interpretation of the chest x- ray no overt failure or infiltrative changes. CT abdomen pelvis was obtained. This demonstrates: No evidence renal calcifications or obstructive uropathy. Mild perinephric soft tissue stranding which is nonspecific. Please see radiology read for further details. History & Record Review Discussion w/independent historian: Patient Lab Data Attestation: I reviewed the patient's lab results. Labs: Laboratory Results - last 24 hr 08/10/23 17:10 WBC 7.9 RBC 3.28 L Hgb 9.8 L Hct 30.4 L MCV 92.7 MCH 29.9 MCHC 32.2 RDW Std Deviation 45.1 H RDW Coeff of Haley 13.2 Plt Count 290 MPV 9.8 Immature Gran % (Auto) 0.500 Neut % (Auto) 64.9 Lymph % (Auto) 24.6 [place] % (Auto) 7.8 Eos % (Auto) 1.7 Baso % (Auto) 0.5 Absolute Neuts (auto) 5.1 Absolute Lymphs (auto) 1.93 Nucleated RBC % 0 Total Bilirubin 0.30 Direct Bilirubin 0.13 AST 22 ALT 26 Alkaline Phosphatase 86 Total Protein 7.2 Albumin 3.8 Globulin 3.4 Urine Color Straw Urine Clarity Clear Urine pH 6.5 Ur Specific [place] 1.005 Urine Protein 15 H Urine Glucose (UA) Normal Urine Ketones Negative Urine Occult Blood Negative Urine Nitrite Negative Urine Bilirubin Negative Urine Urobilinogen Normal Ur Leukocyte Esterase 100 H Urine RBC 0 SEEN Urine WBC 0-5 SEEN Ur Squamous Epith Cells 0 SEEN Urine Bacteria RARE Urine Mucus 0 SEEN Ur Random Sodium 40 Urine Creatinine 22.20 Radiography Diagnostic Testing: Clinical Impression(s) from Imaging Studies Abdomen/Pelvis CT 08/10/23 16:52 IMPRESSION: 1. No masses bowel obstruction abscess free fluid or free air. Moderate diverticulosis without diverticulitis.` 2. The appendix is visualized and appears normal. 3. No evidence renal calcifications or obstructive uropathy. Mild perinephric soft tissue stranding which is nonspecific. 4. No evidence cholelithiasis or ductal dilatation. 5. Diffuse interstitial prominence in atelectasis at the lung bases, pleural thickening trace RIGHT effusion. 6. Diffuse lumbar spondylosis most marked at L4-5. Grade 1 anterolisthesis of L4 and L5 without change. Electronically Signed: Brendon Paz MD at 18:40 EST , Chest X-Ray 08/10/23 17:48 IMPRESSION: 1. No evidence ghulam congestive failure. 2. Perihilar interstitial prominence bilaterally and blunting RIGHT CP angle. Pleural thickening versus trace fluid are considerations. No airspace consolidation. Early bibasilar infiltrates are a consideration.. Electronically Signed: Brendon Paz MD at 18:10 EST , Discharge Plan Dx/Rx/DC Orders Clinical Impression: Acute renal failure, Anemia, Lymphedema, Hypertension Disposition Disposition: Acute Care Hospital [facility]
[2023-08-10 17:17] LABS: Mucous, Urine 0 SEEN /hpf (<or=2+); Red Blood Cells-Urine 0 SEEN /hpf (0-5); Squamous Epithelial Cells - UA 0 SEEN /hpf (5-10)
[2023-08-10 17:22] LABS: Absolute Lymphocyte Count 1.93 X10^3/uL (0.83-4.51); Absolute Neutrophil Count 5.1 X10^3/uL (2.0-7.7); Basophil# 0.04 X10^3/uL; Basophil% 0.5 % (0-1); Eosinophil# 0.13 X10^3/uL; Eosinophils% 1.7 % (0-5); Hematocrit 30.4 % (37-47); Hemoglobin 9.8 g/dL (12.0-15.0); Lymphocyte # 1.93 X10^3/ul (0.83-4.51); Lymphocyte % 24.6 % (19-41); Mean Corp Hgb Conc 32.2 g/dL (32-36); Mean Corpuscular Hgb 29.9 pg (27.0-32.0); Mean Corpuscular Volume 92.7 fL (81-99); Mean Platelet Vol. 9.8 fl (6.2-12.0); Monocyte# 0.61 X10^3/uL; Monocyte% 7.8 % (0-10); NRBC Flagged by Analyzer 0 % (0-5); Neutrophil # 5.11 X10^3/uL (2.7-7.7); Neutrophil % 64.9 % (47-70); Platelet Count 290 K/mm3 (150-450); RBC Distribution Width CV 13.2 % (11.6-14.6); RBC Distribution Width SD 45.1 fl (35.1-43.9); Red Blood Count 3.28 M/mm3 (4.2-5.4); White Blood Count 7.9 K/mm3 (4.4-11.0)
[2023-08-10 17:23] LABS: Color, Urine Straw (Yellow); Glucose, Dipstick Normal (Normal); Ketone-Dipstick Negative (Negative); Leukocyte Esterase-Dipstick 100 /ul (Negative); Nitrite-Dipstick Negative (Negative); Occult Blood-Urine Negative /ul (Negative); Protein-Dipstick 15 mg/dl (Negative); Specific Gravity, Urine 1.005 (1.002-1.030); Urine Bilirubin Dipstick Negative (Negative); Urine Clarity Clear (Clear); Urine Urobilinogen Normal (Normal); Urine pH 6.5 (5.0 - 8.0)
--- OUTSIDE RECORDS SUMMARY | 2023-08-10 17:27 | XMS RPT_ITS | CCD ---
Author Name Unknown Address [address] [place] [address] Organization [facility] Results Test Name Value Interpretation [...] BE BASED ON THE PRIMARY CLINICAL RECORDS. [employer] provides no warranty or guarantee of the accuracy or completeness of information in this document.
[2023-08-10 17:36] LABS: Bacteria RARE /hpf (None Seen); White Blood Cells 0-5 SEEN /hpf (0-5)
[2023-08-10 17:42] LABS: AST(SGOT) 22 U/L (15-37); Alanine Aminotransfer ALT/SGPT 26 U/L (13-56); Albumin, Serum 3.8 g/dL (3.2-5.0); Alkaline Phosphatase 86 U/L (45-117); Bilirubin, Direct 0.13 mg/dL (0.00-0.30); Globulin 3.4 g/dL (2.2-4.2); Protein, Total 7.2 g/dL (6.4-8.2)
[2023-08-10 17:44] LABS: Urine Sodium 40 mmol/L (Not Establ.)
--- NOTE | 2023-08-10 17:48 | RAD_ITS ---
INDICATION: hypertension EXAMINATION/TECHNIQUE: X-RAY - XR Chest 1 View COMPARISON: 01/10/2021 FINDINGS: LIFE-SUPPORT AND LINES: 1. None HEART AND VESSELS: Cardiac silhouette is unchanged. No congestive failure. LUNGS AND PLEURAL SPACES: There are diffuse perihilar interstitial prominence bilaterally, mild blunting RIGHT CP angle. No consolidation noted. No pulmonary mass is noted. MEDIASTINUM AND HILAR REGIONS: No masses adenopathy noted. No areas of calcification. Visualized upper airway is normal in position. BONY ELEMENTS: No acute bony changes noted. RAD/Chest 1 View (Portable) IMPRESSION: 1. No evidence ghulam congestive failure. 2. Perihilar interstitial prominence bilaterally and blunting RIGHT CP angle. Pleural thickening versus trace fluid are considerations. No airspace consolidation. Early bibasilar infiltrates are a consideration.. Electronically Signed: Brendon Paz MD at 18:10 EST ,
[2023-08-10 18:36] VITALS: BP 121/66; PULSE 65; RESP 14; O2SAT 99
--- NOTE | 2023-08-10 19:18 | US_ITS ---
INDICATION: maynor EXAMINATION: Ultrasound US Kidney(s) complete (eg, kidneys and bladder) TECHNIQUE: Gonzales scale and color doppler images were obtained of the kidneys. COMPARISON: None. FINDINGS: RIGHT KIDNEY: 11.8 x 4.5 x 4.6 cm. Renal cortex measures approximately 1.6 cm.. There is diffusely increased renal echogenicity. There is no hydronephrosis. No shadowing calculus, focal mass lesions or perinephric collection is demonstrated. There is a small subcapsular cyst measuring 8 x 6 x 6 mm. LEFT KIDNEY: 11.4 x 5.7 x 6.5 cm. Renal cortex measures 1.9 cm. There is diffusely increased renal echogenicity.. There is mild pelvocaliectasis. No shadowing calculus, focal lesion or perinephric collection is demonstrated. URINARY BLADDER: Bladder is mildly distended estimated at 188.9 mL. Normal wall structure. No masses identified. US/Kidney and Bladder IMPRESSION: 1. Mild hydronephrosis on the LEFT. No solid masses or calcifications noted bilaterally. 2. Small 8 x 6 x 6 mm subcapsular cyst in the RIGHT kidney. 3. Diffusely increased renal echogenicity bilaterally, sequelae of medical renal disease is a consideration. 4. Normal appearance of bladder, distended volume estimated at 188.9 mL. Electronically Signed: Brendon Paz MD at 20:36 EST ,
--- NOTE | 2023-08-10 19:19 | PCM.HP.STD ---
HPI - General General Date of Admission: 08/10/23 Date of Service: 08/10/23 Chief Complaint: Abnormal Labs HPI Narrative DON GRADY, is a 68 F who presented to the emergency department at [facility] on 08/10/2023 at the request of her primary care physician due to abnormal labs. Patient saw her primary care physician on 08/07/2023 due to 2 days of worsening urinary frequency with no dysuria, abdominal pain or otherwise feeling of unwellness. At that time a urine culture was obtained as well as labs.Basic metabolic profile at that time revealed a serum creatinine of 4.56 and a BUN of 51. Her baseline renal function appears to be between 1.1 and 1.4. At that point her primary care physician instructed her to stop her losartan and increase her fluid intake both of which she has done and they repeated her labs today on 08/10/2023. Her renal function has been found to be worsening despite interventions noted previously and is now 5.12 with a BUN of 53. Emergency department did obtain a FeNa and her FeNa is 6.79. She states that her urinary frequency has improved. She denies any significant abdominal pain. She reports that her legs are little bit more swollen than baseline however she has chronic lower extremity edema that has been present since about 2019. She has no pain. Vital signs on presentation showed temperature of 97.4, blood pressure of 118/66, respiratory rate 18 oxygen saturations between 99-100% room air. CBC shows a hemoglobin of 9.8 which is down from the range of 11-12 from the summer. She denies any abnormal stools, dark tarry stools or hematemesis. Outpatient chemistry was reviewed and again shows a BUN of 53 and a serum creatinine of 5.12. Her electrolytes all appear to be unremarkable. Anion gap is normal. Bicarb is 21. Her UA is overall fairly unremarkable with 15 mg/dL of protein no red cells, no white cells, no rare bacteria. Outpatient urine culture was reviewed and she is E. coli at 25,000-50,[address] of the abdomen pelvis shows moderate diverticulosis without diverticulitis, normal appendix, no evidence of renal calcification or obstructive uropathy with mild perinephritic soft tissue stranding, atelectasis at the lung bases with a trace right effusion and diffuse lumbar spondylosis and a grade 1 anterior listhesis at L4-L5 without change from previous. [facility] Medical History Acute frontal sinusitis, unspecified Acute maxillary sinusitis, unspecified Acute sinusitis, unspecified BARBARA (acute kidney injury) Alcohol abuse Anxiety and depression Arthritis Breast lump Carpal tunnel syndrome Chronic bronchitis CKD (chronic kidney disease), stage III Drug abuse Flu vaccine need Frequent urinary tract infections GERD (gastroesophageal reflux disease) Gout H/O emotional problems Health care maintenance Heart murmur High blood pressure High cholesterol Hives Hyperlipidemia Hypertension Mood changes Neuropathy Seasonal allergies Urinary frequency Vitamin deficiency Home Medications Sleep apnea supplies #1 ea 02/22/19 [Rx Last Taken Unknown] diclofenac sodium 1 % topical gel (Voltaren Arthritis Pain) 4 g topical ONCE PRN pain #100 grams 02/05/21 [Rx Last Taken Unknown] disability placard #1 ea 02/28/21 [Rx Last Taken Unknown] walker #1 ea 02/28/21 [Rx Last Taken Unknown] Circaid #2 ea 05/03/21 [Rx Last Taken Unknown] blood pressure monitor #1 ea 05/06/21 [Rx Last Taken Unknown] compression socks #3 ea 05/06/21 [Rx Last Taken Unknown] cholecalciferol (vitamin D3) 125 mcg (5,000 unit) capsule 125 mcg PO DAILY #90 caps 07/29/21 [Rx Last Taken 08/10/23] albuterol sulfate 90 mcg/actuation aerosol inhaler (ProAir HFA) 2 puff inhalation Q4H PRN shortness of breath or wheezing 3 months #8.5 grams 05/11/23 [Rx Last Taken 08/10/23] fluticasone propionate 50 mcg/actuation nasal spray,suspension 2 spray intranasal DAILY #3 ea 05/11/23 [Rx Last Taken 08/09/23] levocetirizine 5 mg tablet (Xyzal) 5 mg PO QPM PRN allergy symptoms #90 tabs 05/11/23 [Rx Last Taken 08/09/23] amlodipine 10 mg tablet 10 mg PO DAILY #90 tabs 08/07/23 [Rx Last Taken 08/10/23] clonidine HCl 0.3 mg tablet 0.3 mg PO TID #180 tabs 08/07/23 [Rx Last Taken 08/10/23] fenofibrate 54 mg tablet 108 mg (2 x 54 mg) PO DAILY #180 tabs 08/07/23 [Rx Last Taken 08/10/23] losartan 100 mg tablet 100 mg PO DAILY #90 tabs 08/07/23 [Rx Last Taken Unknown] montelukast 10 mg tablet 10 mg PO QPM #90 tabs 08/07/23 [Rx Last Taken 08/09/23] pravastatin 20 mg tablet 20 mg PO DAILY #90 tabs 08/07/23 [Rx Last Taken 08/09/23] yozoymma-kgbiiogv-wiz C 250 mg-herbal no.124 8.875 mg chewable tablet (Airborne (ascorbic acid)) 1 tab PO DAILY 08/10/23 [History Last Taken 08/10/23] Allergy/AdvReac Type Severity Reaction Status Date / Time iodine Allergy Severe Itching, Verified 08/10/23 15:49 SOB, rashes shellfish derived Allergy Severe Itching, Verified 08/10/23 15:49 SOB, swelling hydrochlorothiazide Allergy Unknown Verified 08/10/23 15:49 Fish Containing Products AdvReac Severe Shortness Verified 08/10/23 15:49 of breath, rashes Family History Sister Cancer Diabetes Brother Cancer Father CVA (cerebral vascular accident) Hypertension Mother Hypertension Sister Hypertension Daughter Hypertension Daughter Diabetes Other Alcoholism Anemia Anxiety Arthritis Asthma Bowel disease Breast cancer Cervical cancer Colon cancer Depression High cholesterol Hormone Problems Myocardial infarction Osteoporosis Ovarian cancer PTSD (post-traumatic stress disorder) Respiratory disease Severe allergy Thyroid disorder Surgical History History of lumpectomy of right breast Social History household members: none housing: house number of children: 3 current occupational status: retired history of recent travel: No Smoking Status: Former smoker alcohol intake: current alcohol intake frequency: a few times a week Alcohol type: beer and wine details: 12 drinks per week substance use type: does not use what type of physical activity do you participate in: none seatbelt use: always do you feel safe at home: Yes additional social history: single ROS Constitutional Constitutional: Denies anorexia, change in weight, chills, fatigue, fever(s), malaise, night sweats, weakness or other Eyes Eyes: Denies blurry vision, change in eye color, change in vision, discharge from eye(s), double vision, erythema, eye pain, loss of vision or other ENT HEENT: Denies abnormal hearing, dysphagia, ear pain, epistaxis, headache(s), hearing loss, nasal congestion, nasal discharge, post nasal drip, sinus pressure, sore throat or other Cardiovascular Cardiovascular: Reports dyspnea on exertion and edema; Denies chest pain, claudication, lightheadedness, orthopnea, palpitations, paroxysmal nocturnal dyspnea, rapid heart rate, syncope or other Respiratory/Chest Respiratory/Chest: Reports shortness of breath at rest and shortness of breath with exertion; Denies cough, dyspnea, excessive phlegm production, hemoptysis, productive cough, wheezing or other Gastrointestinal Gastrointestinal: Reports constipation; Denies abdominal pain, coffee ground emesis, diarrhea, dyspepsia, hematemesis, hematochezia, loose stools, melena, nausea, vomiting or other Genitourinary Genitourinary: Reports urinary frequency; Denies burning urination, difficulty urinating, dysuria, hematuria, nocturia, urinary hesitancy, urinary incontinence, urinary urgency or other Musculoskeletal Musculoskeletal: Denies arthralgias, back pain, joint pain, joint stiffness, joint swelling, myalgias, neck pain or other Neurologic Neurologic: Denies abnormal gait, abnormal speech, confusion, disequilibrium, dizziness, focal weakness, headache(s), numbness, paresthesias, seizure-like activity, seizures, syncope, tingling, tremor(s) or other Psychiatric Psychiatric: Denies anxiety, depression, homicidal ideation, suicidal ideation or other Endocrine Endocrinology: Denies change in body appearance, cold intolerance, excessive sweating, heat intolerance, polydipsia, polyuria or other Hematologic/Lymphatic Hematologic/Lymphatic: Denies anemia, easy bleeding, easy bruising, lymphadenopathy or other Allergic/Immunologic Allergic/Immunologic: Reports rhinitis and asthma; Denies hives, eczemia or other Vital Signs Vital Signs Vital Signs: 08/10/23 15:49 08/10/23 17:13 08/10/23 18:36 Temperature 97.4 F L Temperature Source Temporal Pulse Rate 70 65 Respiratory Rate 18 14 Respiratory Effort Normal Respiratory Pattern Normal Blood Pressure 119/66 121/66 H Blood Pressure Mean 83 84 Pulse Ox 100 99 Oxygen Delivery Method Room Air Room Air Weight Weight: 94.347 kg Body Mass Index (BMI) 42.0 Physical Exam Const alert, oriented x3, no apparent distress and well nourished; Negative for average body habitus or healthy appearing Constitutional Narrative: Morbidly obese, upper middle-aged, -[place], female, sitting up in bed, appears comfortable nontoxic General Appearance: cooperative HEENT normocephalic, head/scalp atraumatic, hearing grossly normal bilaterally and moist oral mucous membranes HEENT Narrative: Dentition is poor, Mallampati is 3, no thrush Eyes PERRL and EOMs intact bilaterally Eyes Narrative: Conjunctiva are pale mildly pale, no scleral icterus Neck no lymphadenopathy and supple Neck Narrative: Trachea midline, no thyroid enlargement, neck is short and thick Resp normal respiratory effort, no retractions and no use of accessory muscles Resp Narrative: Few scattered wheezes in right lung field upper and lower lobes Auscultation: wheezes; Negative for rales or rhonchi Cardio regular rate, regular rhythm, S1 normal heart sound, S2 normal heart sound, no murmurs, no rub, no gallops and no clicks GI normal to inspection, nondistended, normoactive bowel sounds, soft to palpation and non-tender Extremity Extremity Narrative: Lower extremity edema that is nonpitting, no cyanosis or clubbing, pedal pulses are 2+ Neuro oriented x3, moves all extremities and no focal motor deficits Speech: speech normal Psych affect normal Psych Narrative: Eye contact is good, patient interacts appropriately Results Lab / Micro Data Attestation: I reviewed the patient's lab results. 08/10/23 17:10 Labs: Laboratory Results - last 24 hr 08/10/23 17:10: WBC 7.9, RBC 3.28 L, Hgb 9.8 L, Hct 30.4 L, MCV 92.7, MCH 29.9, MCHC 32.2, RDW Std Deviation 45.1 H, RDW Coeff of Haley 13.2, Plt Count 290, MPV 9.8, Immature Gran % (Auto) 0.500, Neut % (Auto) 64.9, Lymph % (Auto) 24.6, Wright % (Auto) 7.8, Eos % (Auto) 1.7, Baso % (Auto) 0.5, Absolute Neuts (auto) 5.1, Absolute Lymphs (auto) 1.93, Nucleated RBC % 0, Total Bilirubin 0.30, Direct Bilirubin 0.13, AST 22, ALT 26, Alkaline Phosphatase 86, Total Protein 7.2, Albumin 3.8, Globulin 3.4, Urine Color Straw, Urine Clarity Clear, Urine pH 6.5, Ur Specific [place] 1.005, Urine Protein 15 H, Urine Glucose (UA) Normal, Urine Ketones Negative, Urine Occult Blood Negative, Urine Nitrite Negative, Urine Bilirubin Negative, Urine Urobilinogen Normal, Ur Leukocyte Esterase 100 H, Urine RBC 0 SEEN, Urine WBC 0-5 SEEN, Ur Squamous Epith Cells 0 SEEN, Urine Bacteria RARE, Urine Mucus 0 SEEN, Ur Random Sodium 40, Urine Creatinine 22.20 Imaging Radiology Impression Abdomen/Pelvis CT 08/10/23 16:52 IMPRESSION: 1. No masses bowel obstruction abscess free fluid or free air. Moderate diverticulosis without diverticulitis.` 2. The appendix is visualized and appears normal. 3. No evidence renal calcifications or obstructive uropathy. Mild perinephric soft tissue stranding which is nonspecific. 4. No evidence cholelithiasis or ductal dilatation. 5. Diffuse interstitial prominence in atelectasis at the lung bases, pleural thickening trace RIGHT effusion. 6. Diffuse lumbar spondylosis most marked at L4-5. Grade 1 anterolisthesis of L4 and L5 without change. Electronically Signed: Brendon Paz MD at 18:40 EST , Chest X-Ray 08/10/23 17:48 IMPRESSION: 1. No evidence ghulam congestive failure. 2. Perihilar interstitial prominence bilaterally and blunting RIGHT CP angle. Pleural thickening versus trace fluid are considerations. No airspace consolidation. Early bibasilar infiltrates are a consideration.. Electronically Signed: Brendon Paz MD at 18:10 EST , Assessment & Plan Assessment/Plan (1) BARBARA (acute kidney injury): (2) Anemia: PLAN: Plan BARBARA on CKD stage 3a -pt has already stopped her losartan and had been pushing oral fluids at home -Continue to hold losartan -IV fluids with normal saline at 100 cc/h x 2 L -FeNa is 6.79 indicating intrinsic renal disease -Check CH50, C3, C4, JEWEL, ANCA's -UA is overall unimpressive -Mckenna placement -Check renal ultrasound -CT of the abdomen pelvis is unimpressive for any signs of kidney abnormalities -Urine culture was done on 08/07/2023 but shows only 25,000-50,000 CFU's per mL not consistent with acute infection -Patient may very well need renal biopsy -Consult nephrology Anemia -Appears to be worsening however is in conjunction with her worsening renal disease -May be related to worsening renal function -Check iron studies -Check retake count -Check stool for guaiac -If iron studies are low replete -Stable since last lab work was done 3 days ago Lower extremity edema -Related to chronic lymphedema -Continue home treatment Hypertension -Continue home amlodipine -Continue home clonidine -As needed hydralazine -Continue to hold home losartan Hyperlipidemia -Continue home pravastatin -Continue home fenofibrate GERD -No current issues -Patient managing with lifestyle and dietary modifications and no oral medication Asthma -Chronic stable -Continue Singulair next-continue as needed albuterol MICAELA -CPAP nightly and with naps -Currently on 12 cmH2O Vitamin D deficiency -Continue home oral vitamin D Seasonal allergies -Continue home medication -Continue home nasal spray Obesity -BMI 42.0 -Complicates treatment, prognosis, outcomes -Recommend weight loss DVT prophylaxis -Heparin 3 times daily CODE STATUS -Full code is verified on admission Charges/Coding Visit Charges Inpatient E&M: 65326 Init Hosp L2
[2023-08-10 20:32] LABS: Platelet Count 285 K/mm3 (150-450); RET-HE 31.7 pg (30-35); Reticulocyte Count 2.17 % (0.5-1.5)
--- OUTSIDE RECORDS SUMMARY | 2023-08-10 20:37 | XMS RPT_ITS | CCD ---
Author Name Unknown Address [address] [place] [address] Organization [facility] Results Test Name Value Interpretation [...] BE BASED ON THE PRIMARY CLINICAL RECORDS. [employer] provides no warranty or guarantee of the accuracy or completeness of information in this document.
[2023-08-10 21:06] VITALS: BMI 42.7
[2023-08-10 21:16] LABS: Ferritin 403 ng/mL (8-252); Iron 39 ug/dL (50-170); Iron Binding Capacity,Total 343 ug/dL (250-450); PERCENT IRON SATURATION 11.4 % (15.0-55.0)
[2023-08-10 21:18] VITALS: BP 122/53; PULSE 66; RESP 17; TEMP 36.6; O2SAT 98
[2023-08-10] MEDS: 0.9% Normal Saline (1000mL) 1,000 ML 100 ML IV (21:28)
[2023-08-10] MEDS: cloNIDine HCl 0.1 MG Tablet 0.299999999999999989 MG PO (21:29)
[2023-08-10] MEDS: Pravastatin 20 MG Tablet PO (21:30)
[2023-08-10] MEDS: Montelukast 10 MG Tablet PO (21:30)
[2023-08-10] MEDS: Heparin Injection (Vial) 5,000 UNIT/ML VIAL 5000 UNIT SC (21:30)
--- NOTE | 2023-08-10 23:34 | CPS ---
Patient refuses PAP at this time
[2023-08-11] VITALS (9 sets, daily range): BP systolic 115–129; BP diastolic 62–71; PULSE 65–78; RESP 12–18; TEMP 36.7–36.9; O2SAT 96–100; BMI 42.6
[2023-08-11] MEDS: cloNIDine HCl 0.1 MG Tablet 0.299999999999999989 MG PO ×3 (05:18→21:53)
[2023-08-11] MEDS: Heparin Injection (Vial) 5,000 UNIT/ML VIAL 5000 UNIT SC ×3 (05:18→21:53)
[2023-08-11] MEDS: 0.9% Normal Saline (1000mL) 1,000 ML 100 ML IV (05:27)
[2023-08-11 06:36] LABS: Absolute Lymphocyte Count 1.42 X10^3/uL (0.83-4.51); Basophil# 0.03 X10^3/uL; Basophil% 0.6 % (0-1); Eosinophil# 0.19 X10^3/uL; Eosinophils% 3.7 % (0-5); Hematocrit 27.4 % (37-47); Hemoglobin 8.8 g/dL (12.0-15.0); Lymphocyte # 1.42 X10^3/ul (0.83-4.51); Lymphocyte % 27.9 % (19-41); Mean Corp Hgb Conc 32.1 g/dL (32-36); Mean Corpuscular Hgb 30.4 pg (27.0-32.0); Mean Corpuscular Volume 94.8 fL (81-99); Mean Platelet Vol. 9.8 fl (6.2-12.0); Monocyte# 0.44 X10^3/uL; Monocyte% 8.6 % (0-10); NRBC Flagged by Analyzer 0 % (0-5); Neutrophil # 2.99 X10^3/uL (2.7-7.7); Neutrophil % 58.8 % (47-70); Platelet Count 260 K/mm3 (150-450); RBC Distribution Width CV 13.3 % (11.6-14.6); RBC Distribution Width SD 46.7 fl (35.1-43.9); Red Blood Count 2.89 M/mm3 (4.2-5.4); White Blood Count 5.1 K/mm3 (4.4-11.0)
[2023-08-11 07:16] LABS: ALB/GLOB Ratio 1.1 RATIO (0.9-2.4); AST(SGOT) 14 U/L (15-37); Alanine Aminotransfer ALT/SGPT 22 U/L (13-56); Albumin, Serum 3.3 g/dL (3.2-5.0); Alkaline Phosphatase 72 U/L (45-117); Anion Gap 7 (5-15); BUN 54 mg/dL (7-18); BUN/Creat Ratio 11.2 RATIO (10-20); Bilirubin, Direct 0.11 mg/dL (0.00-0.30); Calcium,Total 8.2 mg/dL (8.5-10.1); Chloride 110 mmol/L (98-107); Creatinine, Serum 4.81 mg/dL (0.55-1.02); EST Glomerular Filtration Rate 10 mL/min (>60); Est Glom Filt Rate - Afr Amer 12 mL/min (>60); Estimated Creatinine Clearance 11.61 ml/min; Globulin 3.1 g/dL (2.2-4.2); Glucose 102 mg/dL (74-106); Magnesium 2.6 mg/dL (1.6-2.6); Phosphorus 5.3 mg/dL (2.5-4.9); Potassium 4.2 mmol/L (3.5-5.1); Protein, Total 6.4 g/dL (6.4-8.2); Sodium Level 138 mmol/L (136-145); Thyroid Stim Hormone (TSH) 3.01 uIU/mL (0.358-3.74)
[2023-08-11] MEDS: amLODIPine 10 MG Tablet PO (07:55)
[2023-08-11] MEDS: Fenofibrate 145 MG Tablet PO (07:55)
[2023-08-11] MEDS: Multivitamins,Therapeutic Tablet 1 TABLET PO (07:56)
[2023-08-11] MEDS: Cholecalciferol (Vit D3) 125 MCG CAPSULE (5,000 UNITS) PO (07:58)
--- NOTE | 2023-08-11 09:40 | CASEMGMT ---
JOVANY SULTANA Assessment Face to Face with patient for initial transition planning/care coordination assessment. JOVANY SULTANA introduced self and role at [facility], pt voices understanding. Pt is A&Ox4 and is resting comfortably in bed and is calm. Pt daughter (Verenice LEDEZMA) at bedside. Care providers, pharmacy, and demographics verified. Admitting dx: BARBARA on CKD LACE Strata: 2 PCP: Sukhwinder Specialists: Denies. States she will be seen by a sailmaker today. There is a Consult order in. Preferred Pharmacy: [facility] Insurance: [employer] [facility] Prescription Benefit: Yes LNOK: Jo Reed (Daughter), Lisandro Parekh (Daughter) Living Arrangements: Pt lives alone in a single story home with 4 steps to enter with handrails. Pt denies issues entering and exiting the home. ADLs/IADLs: States ind Transportation: Pt drives. Pt daughters drive DME: Pt has a walker and cane at home but states that she does not use. Pt has a walk in shower with grab bars. Pt states she wears a CPAP at night with no additional O2. HHC/SNF: Denies Pt?s goal: Home Plan: Pt states that she plans to DC home once ready. Pt daughter (Verenice LEDEZMA) states she is a PANTS [employer]TER and works in a fdc and states that she does not want the pt to go to a SNF. Pt daughter states that she can help care for the pt after DC. Will follow for any further needs. Katie Ramírez RN, CM
--- NOTE | 2023-08-11 10:46 | PCM.CONS.R ---
Documented by User: SCARLETT Cronin 08/11/23 11:03 Assessment & Plan Assessment/Plan (1) BARBARA (acute kidney injury): PLAN: Plan This is a 68-year-old female with past medical history significant for hypertension, hyperlipidemia, anxiety and depression, GERD, lymphedema who presented to emergency room yesterday under direction of PCP for abnormal labs, elevated creatinine of 4.56 on August 07. Serum creatinine in emergency room yesterday 5.12. Creatinine this morning 4.81. Nephrology consulted in view of rising creatinine. Patient reports she has not been seen by public weigher in past. Patient was seen by PCP last week for complaints of increased urine output, feeling unwell. UA, culture and labs were obtained. UA collected in the emergency room showed protein 15, negative occult blood, leukocyte esterase 100. Urine cx ecoli. Patient was started on IV fluids yesterday. Losartan stopped. Quite possibly BARBARA from volume depletion, hypotension with concurrent Losartan intake and UTI. Recommend keeping off losartan at this time. There is no acute indication for [employer]. Serologies were obtained upon admission. We will also check SPEP and UPEP in view of BARBARA and anemia. If no improvement in renal function patient may need kidney biopsy. Will continue to follow renal function trajectory. In reviewing past serum creatinine trends, possible baseline serum creatinine ranging around 1.1 to 1.4 mg/dL. Noncontrast CT of abdomen pelvis: No evidence of renal calcifications or obstructive uropathy, mild perinephric soft tissue stranding which is nonspecific; renal ultrasound: Mild hydronephrosis on the left, no solid masses or calcifications noted bilaterally. Blood pressures were low at PCP office last week but have improved, patient is on amlodipine and clonidine. Will add holding parameters to antihypertensives. Patient has good urine output. Can keep on IV fluids for another day. labs ordered for am. Further orders forthcoming as hospitalization evolves, thank you for allowing us to participate in the care of Ms. Patton. HPI Consult Data Date of Consult: 08/11/23 HPI Narrative HPI Narrative: DON GRADY, is a 68 F with past medical history significant for hypertension, hyperlipidemia, anxiety and depression, GERD who presented to the emergency room yesterday under the direction of her PCP for abnormal labs. Patient had a visit with her PCP on August 07 as she had noticed increasing urinary frequency without any burning or abdominal pain. She was also feeling unwell. UA and culture were collected at PCP office and lab work obtained. Patient was encouraged to increase fluid intake. No new medications were added. Her blood pressure at the office visit was 110/70. Patient was contacted at home and encouraged to go to the emergency room due to abnormal labs with elevated creatinine of 4.56. Patient was admitted for further evaluation and treatment. Nephrology consulted in view of elevated creatinine. Patient reports she has not been seen by public weigher in past. She had been on losartan but this was stopped yesterday. No new medications. No NSAIDs. No rash. Denies arthralgias. UA showed 15 protein, 10 occult blood, positive leukocyte Estrace. UA yesterday urine sodium 40. Patient denies any recent nausea, vomiting or diarrhea. [facility] Medical History Acute frontal sinusitis, unspecified Acute maxillary sinusitis, unspecified Acute sinusitis, unspecified BARBARA (acute kidney injury) Alcohol abuse Anxiety and depression Arthritis Breast lump Carpal tunnel syndrome Chronic bronchitis CKD (chronic kidney disease), stage III Drug abuse Flu vaccine need Frequent urinary tract infections GERD (gastroesophageal reflux disease) Gout H/O emotional problems Health care maintenance Heart murmur High blood pressure High cholesterol Hives Hyperlipidemia Hypertension Mood changes Neuropathy Seasonal allergies Urinary frequency Vitamin deficiency Home Medications Sleep apnea supplies #1 ea 02/22/19 [Rx Last Taken Unknown] diclofenac sodium 1 % topical gel (Voltaren Arthritis Pain) 4 g topical ONCE PRN pain #100 grams 02/05/21 [Rx Last Taken Unknown] disability placard #1 ea 02/28/21 [Rx Last Taken Unknown] walker #1 ea 02/28/21 [Rx Last Taken Unknown] Circaid #2 ea 05/03/21 [Rx Last Taken Unknown] blood pressure monitor #1 ea 05/06/21 [Rx Last Taken Unknown] compression socks #3 ea 05/06/21 [Rx Last Taken Unknown] cholecalciferol (vitamin D3) 125 mcg (5,000 unit) capsule 125 mcg PO DAILY vitamin #90 caps 07/29/21 [Rx Last Taken 08/10/23] albuterol sulfate 90 mcg/actuation aerosol inhaler (ProAir HFA) 2 puff inhalation Q4H PRN shortness of breath or wheezing 3 months #8.5 grams 10/30/23 [Rx Last Taken Unknown] fluticasone propionate 50 mcg/actuation nasal spray,suspension 2 spray intranasal DAILY congestion #3 ea 05/11/23 [Rx Last Taken 08/09/23] levocetirizine 5 mg tablet (Xyzal) 5 mg PO QPM PRN allergy symptoms #90 tabs 05/11/23 [Rx Last Taken 08/09/23] amlodipine 10 mg tablet 10 mg PO DAILY bp #90 tabs 08/07/23 [Rx Last Taken 08/10/23] clonidine HCl 0.3 mg tablet 0.3 mg PO TID bp #180 tabs 08/07/23 [Rx Last Taken 08/10/23] fenofibrate 54 mg tablet 108 mg (2 x 54 mg) PO DAILY #180 tabs 08/07/23 [Rx Last Taken 08/10/23] losartan 100 mg tablet 100 mg PO DAILY #90 tabs 08/07/23 [Rx Last Taken Unknown] montelukast 10 mg tablet 10 mg PO QPM asthma #90 tabs 08/07/23 [Rx Last Taken 08/09/23] pravastatin 20 mg tablet 20 mg PO DAILY hld #90 tabs 08/07/23 [Rx Last Taken 08/09/23] pisvfjzs-ufzmyjbc-oho C 250 mg-herbal no.124 8.875 mg chewable tablet (Airborne (ascorbic acid)) 1 tab PO DAILY vitamin 08/10/23 [History Last Taken 08/10/23] Allergy/AdvReac Type Severity Reaction Status Date / Time iodine Allergy Severe Itching, Verified 08/10/23 15:49 SOB, rashes shellfish derived Allergy Severe Itching, Verified 08/10/23 15:49 SOB, swelling hydrochlorothiazide Allergy Unknown Verified 08/10/23 15:49 Fish Containing Products AdvReac Severe Shortness Verified 08/10/23 15:49 of breath, rashes Family History Sister Cancer Diabetes Brother Cancer Father CVA (cerebral vascular accident) Hypertension Mother Hypertension Sister Hypertension Daughter Hypertension Daughter Diabetes Other Alcoholism Anemia Anxiety Arthritis Asthma Bowel disease Breast cancer Cervical cancer Colon cancer Depression High cholesterol Hormone Problems Myocardial infarction Osteoporosis Ovarian cancer PTSD (post-traumatic stress disorder) Respiratory disease Severe allergy Thyroid disorder Surgical History History of lumpectomy of right breast Social History household members: none housing: house number of children: 3 current occupational status: retired history of recent travel: No Smoking Status: Former smoker alcohol intake: current alcohol intake frequency: a few times a week Alcohol type: beer and wine details: 12 drinks per week substance use type: does not use what type of physical activity do you participate in: none seatbelt use: always do you feel safe at home: Yes additional social history: single ROS ROS Narrative As in HPI and past medical history Physical Exam Narrative Alert and orient x 3, no apparent distress S1, S2, RRR Lung sounds clear anteriorly and posteriorly Abdomen soft, positive bowel sounds No pitting edema Lab / Micro Data 08/11/23 06:17 08/11/23 06:17 Labs: Laboratory Results - last 24 hr 08/10/23 17:10: WBC 7.9, RBC 3.28 L, Hgb 9.8 L, Hct 30.4 L, MCV 92.7, MCH 29.9, MCHC 32.2, RDW Std Deviation 45.1 H, RDW Coeff of Haley 13.2, Plt Count 290, MPV 9.8, Immature Gran % (Auto) 0.500, Neut % (Auto) 64.9, Lymph % (Auto) 24.6, [place] % (Auto) 7.8, Eos % (Auto) 1.7, Baso % (Auto) 0.5, Absolute Neuts (auto) 5.1, Absolute Lymphs (auto) 1.93, Nucleated RBC % 0, Total Bilirubin 0.30, Direct Bilirubin 0.13, AST 22, ALT 26, Alkaline Phosphatase 86, Total Protein 7.2, Albumin 3.8, Globulin 3.4, Urine Color Straw, Urine Clarity Clear, Urine pH 6.5, Ur Specific [place] 1.005, Urine Protein 15 H, Urine Glucose (UA) Normal, Urine Ketones Negative, Urine Occult Blood Negative, Urine Nitrite Negative, Urine Bilirubin Negative, Urine Urobilinogen Normal, Ur Leukocyte Esterase 100 H, Urine RBC 0 SEEN, Urine WBC 0-5 SEEN, Ur Squamous Epith Cells 0 SEEN, Urine Bacteria RARE, Urine Mucus 0 SEEN, Ur Random Sodium 40, Urine Creatinine 22.20 08/10/23 20:24: Retic Count 2.17 H, Immature Retic Fraction 10.00, Retic Hgb Equivalent 31.7, Iron 39 L, TIBC 343, Iron Saturation 11.4 L, Ferritin 403 H 08/11/23 06:17: WBC 5.1, RBC 2.89 L, Hgb 8.8 L, Hct 27.4 L, MCV 94.8, MCH 30.4, MCHC 32.1, RDW Std Deviation 46.7 H, RDW Coeff of [place]aley 13.3, Plt Count 260, MPV 9.8, Immature Gran % (Auto) 0.400, Neut % (Auto) 58.8, Lymph % (Auto) 27.9, [place] % (Auto) 8.6, Eos % (Auto) 3.7, Baso % (Auto) 0.6, Absolute Neuts (auto) 3.0, Absolute Lymphs (auto) 1.42, Nucleated RBC % 0, Sodium 138, Potassium 4.2, Chloride 110 H, Carbon Dioxide 21.0, Anion Gap 7, BUN 54 H, Creatinine 4.81 H, Estim Creat Clear Calc 11.61, Est GFR (MDRD) Af Amer 12 L, Est GFR (MDRD) Non-Af 10 L, BUN/Creatinine Ratio 11.2, Glucose 102, Calcium 8.2 L, Phosphorus 5.3 H, Magnesium 2.6, Total Bilirubin 0.40, Direct Bilirubin 0.11, AST 14 L, ALT 22, Alkaline Phosphatase 72, Total Protein 6.4, Albumin 3.3, Globulin 3.1, Albumin/Globulin Ratio 1.1, TSH 3.01 Imaging Radiology Impression Abdomen/Pelvis CT 08/10/23 16:52 IMPRESSION: 1. No masses bowel obstruction abscess free fluid or free air. Moderate diverticulosis without diverticulitis.` 2. The appendix is visualized and appears normal. 3. No evidence renal calcifications or obstructive uropathy. Mild perinephric soft tissue stranding which is nonspecific. 4. No evidence cholelithiasis or ductal dilatation. 5. Diffuse interstitial prominence in atelectasis at the lung bases, pleural thickening trace RIGHT effusion. 6. Diffuse lumbar spondylosis most marked at L4-5. Grade 1 anterolisthesis of L4 and L5 without change. Electronically Signed: Brendon Paz MD at 18:40 EST , Chest X-Ray 08/10/23 17:48 IMPRESSION: 1. No evidence ghulam congestive failure. 2. Perihilar interstitial prominence bilaterally and blunting RIGHT CP angle. Pleural thickening versus trace fluid are considerations. No airspace consolidation. Early bibasilar infiltrates are a consideration.. Electronically Signed: Brendon Paz MD at 18:10 EST , Renal Ultrasound 08/10/23 19:18 IMPRESSION: 1. Mild hydronephrosis on the LEFT. No solid masses or calcifications noted bilaterally. 2. Small 8 x 6 x 6 mm subcapsular cyst in the RIGHT kidney. 3. Diffusely increased renal echogenicity bilaterally, sequelae of medical renal disease is a consideration. 4. Normal appearance of bladder, distended volume estimated at 188.9 mL. Electronically Signed: Brendon Paz MD at 20:36 EST , Documented by User: Dr. Ale Gardiner MD 08/11/23 12:53 Assessment & Plan Assessment/Plan (1) BARBARA (acute kidney injury): PLAN: Plan This is a 68-year-old female with past medical history significant for hypertension, hyperlipidemia, anxiety and depression, GERD, lymphedema who presented to emergency room yesterday under direction of PCP for abnormal labs, elevated creatinine of 4.56 on August 07. Serum creatinine in emergency room yesterday 5.12. Creatinine this morning 4.81. Nephrology consulted in view of rising creatinine. Patient reports she has not been seen by public weigher in past. Patient was seen by PCP last week for complaints of increased urine output, feeling unwell. UA, culture and labs were obtained. UA collected in the emergency room showed protein 15, negative occult blood, leukocyte esterase 100. Urine cx ecoli. Patient was started on IV fluids yesterday. Losartan stopped. Quite possibly BARBARA from volume depletion, hypotension with concurrent Losartan intake and UTI. Recommend keeping off losartan at this time. There is no acute indication for [employer]. Serologies were obtained upon admission. We will also check SPEP and UPEP in view of BARBARA and anemia. If no improvement in renal function patient may need kidney biopsy. Will continue to follow renal function trajectory. In reviewing past serum creatinine trends, possible baseline serum creatinine ranging around 1.1 to 1.4 mg/dL. Noncontrast CT of abdomen pelvis: No evidence of renal calcifications or obstructive uropathy, mild perinephric soft tissue stranding which is nonspecific; renal ultrasound: Mild hydronephrosis on the left, no solid masses or calcifications noted bilaterally. Blood pressures were low at PCP office last week but have improved, patient is on amlodipine and clonidine. Will add holding parameters to antihypertensives. Patient has good urine output. Can keep on IV fluids for another day. labs ordered for am. Further orders forthcoming as hospitalization evolves, thank you for allowing us to participate in the care of Ms. Patton. Addendum patient was seen and examined independently. cr was 1.1. or so in October 2022. now has BARBARA UA showed few leukocytes CT abd without hydronephrosis. renal US borderline left hydro UA did not show hematuria or proteinuria no new meds no NSAIDs no urinary complaints other than mild left flank pain etiology unclear work up ordered HPI Consult Data Date of Consult: 08/11/23 [facility] Medical History Acute frontal sinusitis, unspecified Acute maxillary sinusitis, unspecified Acute sinusitis, unspecified BARBARA (acute kidney injury) Alcohol abuse Anxiety and depression Arthritis Breast lump Carpal tunnel syndrome Chronic bronchitis CKD (chronic kidney disease), stage III Drug abuse Flu vaccine need Frequent urinary tract infections GERD (gastroesophageal reflux disease) Gout H/O emotional problems Health care maintenance Heart murmur High blood pressure High cholesterol Hives Hyperlipidemia Hypertension Mood changes Neuropathy Seasonal allergies Urinary frequency Vitamin deficiency Home Medications Sleep apnea supplies #1 ea 02/22/19 [Rx Last Taken Unknown] diclofenac sodium 1 % topical gel (Voltaren Arthritis Pain) 4 g topical ONCE PRN pain #100 grams 02/05/21 [Rx Last Taken Unknown] disability placard #1 ea 02/28/21 [Rx Last Taken Unknown] walker #1 ea 02/28/21 [Rx Last Taken Unknown] Circaid #2 ea 05/03/21 [Rx Last Taken Unknown] blood pressure monitor #1 ea 05/06/21 [Rx Last Taken Unknown] compression socks #3 ea 05/06/21 [Rx Last Taken Unknown] cholecalciferol (vitamin D3) 125 mcg (5,000 unit) capsule 125 mcg PO DAILY vitamin #90 caps 07/29/21 [Rx Last Taken 08/10/23] albuterol sulfate 90 mcg/actuation aerosol inhaler (ProAir HFA) 2 puff inhalation Q4H PRN shortness of breath or wheezing 3 months #8.5 grams 05/11/23 [Rx Last Taken Unknown] fluticasone propionate 50 mcg/actuation nasal spray,suspension 2 spray intranasal DAILY congestion #3 ea 05/11/23 [Rx Last Taken 08/09/23] levocetirizine 5 mg tablet (Xyzal) 5 mg PO QPM PRN allergy symptoms #90 tabs 05/11/23 [Rx Last Taken 08/09/23] amlodipine 10 mg tablet 10 mg PO DAILY bp #90 tabs 08/07/23 [Rx Last Taken 08/10/23] clonidine HCl 0.3 mg tablet 0.3 mg PO TID bp #180 tabs 08/07/23 [Rx Last Taken 08/10/23] fenofibrate 54 mg tablet 108 mg (2 x 54 mg) PO DAILY #180 tabs 08/07/23 [Rx Last Taken 08/10/23] losartan 100 mg tablet 100 mg PO DAILY #90 tabs 08/07/23 [Rx Last Taken Unknown] montelukast 10 mg tablet 10 mg PO QPM asthma #90 tabs 08/07/23 [Rx Last Taken 08/09/23] pravastatin 20 mg tablet 20 mg PO DAILY hld #90 tabs 08/07/23 [Rx Last Taken 08/09/23] safguxkx-[id number]-pfm C 250 mg-herbal no.124 8.875 mg chewable tablet (Airborne (ascorbic acid)) 1 tab PO DAILY vitamin 08/10/23 [History Last Taken 08/10/23] Allergy/AdvReac Type Severity Reaction Status Date / Time iodine Allergy Severe Itching, Verified 08/10/23 15:49 SOB, rashes shellfish derived Allergy Severe Itching, Verified 08/10/23 15:49 SOB, swelling hydrochlorothiazide Allergy Unknown Verified 08/10/23 15:49 Fish Containing Products AdvReac Severe Shortness Verified 08/10/23 15:49 of breath, rashes Family History Sister Cancer Diabetes Brother Cancer Father CVA (cerebral vascular accident) Hypertension Mother Hypertension Sister Hypertension Daughter Hypertension Daughter Diabetes Other Alcoholism Anemia Anxiety Arthritis Asthma Bowel disease Breast cancer Cervical cancer Colon cancer Depression High cholesterol Hormone Problems Myocardial infarction Osteoporosis Ovarian cancer PTSD (post-traumatic stress disorder) Respiratory disease Severe allergy Thyroid disorder Surgical History History of lumpectomy of right breast Social History household members: none housing: house number of children: 3 current occupational status: retired history of recent travel: No Smoking Status: Former smoker alcohol intake: current alcohol intake frequency: a few times a week Alcohol type: beer and wine details: 12 drinks per week substance use type: does not use what type of physical activity do you participate in: none seatbelt use: always do you feel safe at home: Yes additional social history: single Lab / Micro Data 08/11/23 06:17 08/11/23 06:17
--- NOTE | 2023-08-11 16:16 | PCM.PN.HOSP ---
Subjective Subjective Feels little bit better today, though she feels very swollen and puffy from the IV fluids Objective Data Objective Data Vital Signs: Vital Signs Temp Pulse Resp BP Pulse Ox O2 Del Method 98.4 F 78 12 129/71 H 96 Room Air 08/11/23 13:36 08/11/23 14:27 08/11/23 14:27 08/11/23 13:36 08/11/23 14:27 08/11/23 14:27 Oxygen Delivery Method Room Air Weight: 211 lb 10.3 oz Body Mass Index (BMI) 42.6 Intake & Output: Intake and Output for Last 24 Hours 08/10/23 08/11/23 08/12/23 03:59 03:59 03:59 Intake Total 300 / 300 2148.33 / 2148.33 Output Total 600 / 600 1800 / 1800 Balance -300 / -300 348.33 / 348.33 Lab / Micro Data 08/11/23 06:17 08/11/23 06:17 Labs: Laboratory Results - last 24 hr 08/10/23 17:10: WBC 7.9, RBC 3.28 L, Hgb 9.8 L, Hct 30.4 L, MCV 92.7, MCH 29.9, MCHC 32.2, RDW Std Deviation 45.1 H, RDW Coeff of Haley 13.2, Plt Count 290, MPV 9.8, Immature Gran % (Auto) 0.500, Neut % (Auto) 64.9, Lymph % (Auto) 24.6, [place] % (Auto) 7.8, Eos % (Auto) 1.7, Baso % (Auto) 0.5, Absolute Neuts (auto) 5.1, Absolute Lymphs (auto) 1.93, Nucleated RBC % 0, Total Bilirubin 0.30, Direct Bilirubin 0.13, AST 22, ALT 26, Alkaline Phosphatase 86, Total Protein 7.2, Albumin 3.8, Globulin 3.4, Urine Color Straw, Urine Clarity Clear, Urine pH 6.5, Ur Specific [place] 1.005, Urine Protein 15 H, Urine Glucose (UA) Normal, Urine Ketones Negative, Urine Occult Blood Negative, Urine Nitrite Negative, Urine Bilirubin Negative, Urine Urobilinogen Normal, Ur Leukocyte Esterase 100 H, Urine RBC 0 SEEN, Urine WBC 0-5 SEEN, Ur Squamous Epith Cells 0 SEEN, Urine Bacteria RARE, Urine Mucus 0 SEEN, Ur Random Sodium 40, Urine Creatinine 22.20 08/10/23 20:24: Retic Count 2.17 H, Immature Retic Fraction 10.00, Retic Hgb Equivalent 31.7, Iron 39 L, TIBC 343, Iron Saturation 11.4 L, Ferritin 403 H 08/11/23 06:17: WBC 5.1, RBC 2.89 L, Hgb 8.8 L, Hct 27.4 L, MCV 94.8, MCH 30.4, MCHC 32.1, RDW Std Deviation 46.7 H, RDW Coeff of Haley 13.3, Plt Count 260, MPV 9.8, Immature Gran % (Auto) 0.400, Neut % (Auto) 58.8, Lymph % (Auto) 27.9, [place] % (Auto) 8.6, Eos % (Auto) 3.7, Baso % (Auto) 0.6, Absolute Neuts (auto) 3.0, Absolute Lymphs (auto) 1.42, Nucleated RBC % 0, Sodium 138, Potassium 4.2, Chloride 110 H, Carbon Dioxide 21.0, Anion Gap 7, BUN 54 H, Creatinine 4.81 H, Estim Creat Clear Calc 11.61, Est GFR (MDRD) Af Amer 12 L, Est GFR (MDRD) Non-Af 10 L, BUN/Creatinine Ratio 11.2, Glucose 102, Calcium 8.2 L, Phosphorus 5.3 H, Magnesium 2.6, Total Bilirubin 0.40, Direct Bilirubin 0.11, AST 14 L, ALT 22, Alkaline Phosphatase 72, Total Protein 6.4, Albumin 3.3, Globulin 3.1, Albumin/Globulin Ratio 1.1, TSH 3.01 Radiography Diagnostic Testing: Radiology Impression Abdomen/Pelvis CT 08/10/23 16:52 IMPRESSION: 1. No masses bowel obstruction abscess free fluid or free air. Moderate diverticulosis without diverticulitis.` 2. The appendix is visualized and appears normal. 3. No evidence renal calcifications or obstructive uropathy. Mild perinephric soft tissue stranding which is nonspecific. 4. No evidence cholelithiasis or ductal dilatation. 5. Diffuse interstitial prominence in atelectasis at the lung bases, pleural thickening trace RIGHT effusion. 6. Diffuse lumbar spondylosis most marked at L4-5. Grade 1 anterolisthesis of L4 and L5 without change. Electronically Signed: Brendon Paz MD at 18:40 EST , Chest X-Ray 08/10/23 17:48 IMPRESSION: 1. No evidence ghulam congestive failure. 2. Perihilar interstitial prominence bilaterally and blunting RIGHT CP angle. Pleural thickening versus trace fluid are considerations. No airspace consolidation. Early bibasilar infiltrates are a consideration.. Electronically Signed: Brendon Paz MD at 18:10 EST , Renal Ultrasound 08/10/23 19:18 IMPRESSION: 1. Mild hydronephrosis on the LEFT. No solid masses or calcifications noted bilaterally. 2. Small 8 x 6 x 6 mm subcapsular cyst in the RIGHT kidney. 3. Diffusely increased renal echogenicity bilaterally, sequelae of medical renal disease is a consideration. 4. Normal appearance of bladder, distended volume estimated at 188.9 mL. Electronically Signed: Brendon Paz MD at 20:36 EST , Physical Exam Narrative General: Alert, Oriented x3, Cooperative, No apparent distress HEENT: Atraumatic, PERRLA, EOMI, Normocephalic Oral: Moist Mucosa Neck: Supple, No JVD Lungs: Diminished, Normal air movement, No rhonchi, scattered wheeze, No rales Cardiovascular: Regular rate, Regular Rhythm, Normal S1, Normal S2, No murmurs Abdomen: Soft, Non Tender, Non-Distended, No Hepato-splenomegaly Extremities: Edema, Capillary Refill Less than 3 Seconds Skin: No rashes, No breakdown Musculoskeletal: No Tenderness to Palpation of Joints or Extremities Neurological: No focal neurological deficits, Motor Exam 5/5 strength throughout, Sensory exam intact to light touch and pain Psych/Mental Status: Normal Affect, Appropriate Assessment & Plan Assessment/Plan (1) BARBARA (acute kidney injury): (2) Anemia: PLAN: Plan 1. BARBARA on CKD 3A/anemia ? FENa score indicates post obstruction, Mckenna is in place ? Continue with IV fluids and hold any nephrotoxic agents ? Appreciate nephrology's assistance ? Serologies are pending, SPEP and UPEP were added by nephrology to rule out multiple myeloma in the setting of her anemia ? Iron studies were inconclusive as her ferritin was little bit elevated unclear as to the source of her anemia at this time stool guaiac is pending ? Renal ultrasound with a mild hydronephrosis on the left 2. HTN/HLD ? We will hold her losartan secondary to her renal disease ? Continue with her other home blood pressure medications ? Continue with her cholesterol medications 3. Asthma/MICAELA ? Stable ? Continue with CPAP as well as as needed inhalers DVT: Heparin Charges/Coding Visit Charges Inpatient E&M: 47567 Subs Hosp L2
[2023-08-11] MEDS: Pravastatin 20 MG Tablet PO (21:53)
[2023-08-11] MEDS: Montelukast 10 MG Tablet PO (21:54)
[2023-08-11] MEDS: Albuterol 2.5 MG/3 ML VIAL.NEB. INHALATION (22:34)
[2023-08-12] VITALS (7 sets, daily range): BP systolic 117–142; BP diastolic 63–78; PULSE 62–78; RESP 15–18; TEMP 36.6–37.2; O2SAT 97–99; BMI 42.7
--- NOTE | 2023-08-12 02:09 | CPS ---
Patient refuses a hospital CPAP for HS use lynda
[2023-08-12] MEDS: Heparin Injection (Vial) 5,000 UNIT/ML VIAL 5000 UNIT SC ×3 (06:27→22:16)
[2023-08-12] MEDS: cloNIDine HCl 0.1 MG Tablet 0.299999999999999989 MG PO ×3 (06:27→22:15)
[2023-08-12] MEDS: Benzonatate 100 MG Capsule PO (06:27)
[2023-08-12 07:07] LABS: Absolute Lymphocyte Count 2.13 X10^3/uL (0.83-4.51); Absolute Neutrophil Count 3.6 X10^3/uL (2.0-7.7); Basophil# 0.04 X10^3/uL; Basophil% 0.6 % (0-1); Eosinophil# 0.18 X10^3/uL; Eosinophils% 2.7 % (0-5); Hematocrit 28.9 % (37-47); Hemoglobin 9.3 g/dL (12.0-15.0); Lymphocyte # 2.13 X10^3/ul (0.83-4.51); Lymphocyte % 32.5 % (19-41); Mean Corp Hgb Conc 32.2 g/dL (32-36); Mean Corpuscular Hgb 30.2 pg (27.0-32.0); Mean Corpuscular Volume 93.8 fL (81-99); Mean Platelet Vol. 9.9 fl (6.2-12.0); Monocyte# 0.56 X10^3/uL; Monocyte% 8.5 % (0-10); NRBC Flagged by Analyzer 0 % (0-5); Neutrophil # 3.62 X10^3/uL (2.7-7.7); Neutrophil % 55.4 % (47-70); Platelet Count 288 K/mm3 (150-450); RBC Distribution Width CV 13.1 % (11.6-14.6); RBC Distribution Width SD 45.1 fl (35.1-43.9); Red Blood Count 3.08 M/mm3 (4.2-5.4); White Blood Count 6.6 K/mm3 (4.4-11.0)
[2023-08-12 07:26] LABS: Albumin, Serum 3.5 g/dL (3.2-5.0); BUN 51 mg/dL (7-18); BUN/Creat Ratio 11.4 RATIO (10-20); Calcium,Total 9.1 mg/dL (8.5-10.1); Chloride 112 mmol/L (98-107); Creatinine, Serum 4.46 mg/dL (0.55-1.02); EST Glomerular Filtration Rate 10 mL/min (>60); Est Glom Filt Rate - Afr Amer 13 mL/min (>60); Estimated Creatinine Clearance 12.52 ml/min; Glucose 106 mg/dL (74-106); Phosphorus 5.3 mg/dL (2.5-4.9); Potassium 4.2 mmol/L (3.5-5.1); Sodium Level 140 mmol/L (136-145)
[2023-08-12] MEDS: Multivitamins,Therapeutic Tablet 1 TABLET PO (07:49)
--- NOTE | 2023-08-12 09:43 | PCM.PN.REN ---
Subjective Subjective Resting in bed, denies any complaints. Denies any nausea, vomiting, diarrhea. No abdominal pain. Reports good appetite. Objective Data Objective Data Vital Signs: Vital Signs Temp Pulse Resp BP Pulse Ox O2 Del Method 98.9 F 62 18 120/69 99 Room Air 08/12/23 08:00 08/12/23 08:02 08/12/23 08:02 08/12/23 08:00 08/12/23 08:02 08/12/23 08:02 Oxygen Delivery Method Room Air Weight: 96 kg Body Mass Index (BMI) 42.7 Intake & Output: Intake and Output for Last 24 Hours 08/10/23 08/11/23 08/12/23 23:59 23:59 23:59 Intake Total 2498.33 / 2498.33 1000 / 1000 Output Total 2400 / 2400 2750 / 2750 Balance 98.33 / 98.33 -1750 / -1750 Lab / Micro Data 08/12/23 06:45 08/12/23 06:45 Labs: Laboratory Results - last 24 hr 08/12/23 06:45: WBC 6.6, RBC 3.08 L, Hgb 9.3 L, Hct 28.9 L, MCV 93.8, MCH 30.2, MCHC 32.2, RDW Std Deviation 45.1 H, RDW Coeff of Haley 13.1, Plt Count 288, MPV 9.9, Immature Gran % (Auto) 0.300, Neut % (Auto) 55.4, Lymph % (Auto) 32.5, [place] % (Auto) 8.5, Eos % (Auto) 2.7, Baso % (Auto) 0.6, Absolute Neuts (auto) 3.6, Absolute Lymphs (auto) 2.13, Nucleated RBC % 0, Sodium 140, Potassium 4.2, Chloride 112 H, Carbon Dioxide 22.0, BUN 51 H, Creatinine 4.46 H, Estim Creat Clear Calc 12.52, Est GFR (MDRD) Af Amer 13 L, Est GFR (MDRD) Non-Af 10 L, BUN/Creatinine Ratio 11.4, Glucose 106, Calcium 9.1, Phosphorus 5.3 H, Albumin 3.5 Physical Exam Narrative Alert and orient x 3, no apparent distress S1, S2, RRR Lung sounds clear anteriorly and posteriorly Abdomen soft, positive bowel sounds No pitting edema Mckenna with clear yellow urine in bag Assessment & Plan Assessment/Plan (1) BARBARA (acute kidney injury): PLAN: Plan This is a 68-year-old female with past medical history significant for hypertension, hyperlipidemia, anxiety and depression, GERD, lymphedema who presented to emergency room yesterday under direction of PCP for abnormal labs, elevated creatinine of 4.56 on August 07. Nephrology consulted in view of rising creatinine. Patient reports she has not been seen by collaborating supervising physician in past. -Nonoliguric (patient has Mckenna) BARBARA with unclear etiology. Creatinine 5.12 on 08/10, --> today SCr 4.46mg/dL. Bicarb and potassium normal, volume status acceptable. No acute indication for COMMERCIAL LEASE ADMINISTRATOR. Patient was initially started on IV fluids, received 2 L. Now off IV fluids and can keep off IV fluids, encourage patient to increase oral intake. Quite possibly BARBARA from volume depletion, UTI, hypotension with concurrent Losartan. Per patient no new medications, no antibiotics. Recommend keeping off losartan at this time. Serologies were obtained upon admission. We will also check SPEP and UPEP in view of BARBARA and anemia. Depending upon renal serology results and if no improvement in renal function patient may need kidney biopsy. Will continue to follow renal function trajectory. Noncontrast CT of abdomen pelvis: No evidence of renal calcifications or obstructive uropathy, mild perinephric soft tissue stranding which is nonspecific; renal ultrasound: Mild hydronephrosis on the left, no solid masses or calcifications noted bilaterally. Blood pressures were low at PCP office last week but have improved, patient is on amlodipine and clonidine. Baseline creatinine ranging around 1 to 1.3 mg/dL. Attempted to send urine eosinophils but lab does not send nor is it a send out.
--- NOTE | 2023-08-12 09:49 | NURSING ---
dr gutierrez PA here and requesting a lab test urine for eosonophils-spoke w/Elizabeth in lab and that test is no longer available at this hospital or as a send out to [facility] made aware
[2023-08-12] MEDS: Cholecalciferol (Vit D3) 125 MCG CAPSULE (5,000 UNITS) PO (10:02)
[2023-08-12] MEDS: Fenofibrate 145 MG Tablet PO (10:02)
[2023-08-12] MEDS: amLODIPine 10 MG Tablet PO (10:02)
[2023-08-12 11:09] LABS: Anti-Centromere B Ab <0.2 AI (0.0-0.9); Anti-Chromatin <0.2 AI (0.0-0.9); Anti-Jo <0.2 AI (0.0-0.9); Anti-Scleroderma-70 AB <0.2 AI (0.0-0.9); Anti-dsDNA Ab <1 IU/mL (0-9); RNP Ab <0.2 AI (0.0-0.9); SJOGREN'S Anti-SS-A test < 0.2 AI (0.0-0.9); SJOGREN'S Anti-SS-B test < 0.2 AI (0.0-0.9); Smith Ab <0.2 AI (0.0-0.9)
--- NOTE | 2023-08-12 11:31 | PCM.PN.HOSP ---
Subjective Subjective Feels little bit better today,, she still kind of puffy Objective Data Objective Data Vital Signs: Vital Signs Temp Pulse Resp BP Pulse Ox O2 Del Method 98.9 F 62 18 120/69 99 Room Air 08/12/23 08:00 08/12/23 08:02 08/12/23 08:02 08/12/23 08:00 08/12/23 08:02 08/12/23 08:02 Oxygen Delivery Method Room Air Weight: 211 lb 10.3 oz Body Mass Index (BMI) 42.7 Intake & Output: Intake and Output for Last 24 Hours 08/11/23 08/12/23 08/13/23 03:59 03:59 03:59 Intake Total 300 / 300 2698.33 / 2698.33 500 / 500 Output Total 600 / 600 3300 / 3300 1250 / 1250 Balance -300 / -300 -601.67 / -601.67 -750 / -750 Lab / Micro Data 08/12/23 06:45 08/12/23 06:45 Labs: Laboratory Results - last 24 hr 08/10/23 20:24: HILDA-1 Antibody <0.2, SS-A/Ro IgG Antibody < 0.2, SS-B/La IgG Antibody < 0.2, Sm (Peterson) Antibody <0.2, EXTERNAL GRINDER Antibody <0.2, Scl-70 Scleroderma Ab <0.2, Double Strand DNA Ab <1, Centromere B Antibody <0.2 08/12/23 06:45: WBC 6.6, RBC 3.08 L, Hgb 9.3 L, Hct 28.9 L, MCV 93.8, MCH 30.2, MCHC 32.2, RDW Std Deviation 45.1 H, RDW Coeff of Haley 13.1, Plt Count 288, MPV 9.9, Immature Gran % (Auto) 0.300, Neut % (Auto) 55.4, Lymph % (Auto) 32.5, [place] % (Auto) 8.5, Eos % (Auto) 2.7, Baso % (Auto) 0.6, Absolute Neuts (auto) 3.6, Absolute Lymphs (auto) 2.13, Nucleated RBC % 0, Sodium 140, Potassium 4.2, Chloride 112 H, Carbon Dioxide 22.0, BUN 51 H, Creatinine 4.46 H, Estim Creat Clear Calc 12.52, Est GFR (MDRD) Af Amer 13 L, Est GFR (MDRD) Non-Af 10 L, BUN/Creatinine Ratio 11.4, Glucose 106, Calcium 9.1, Phosphorus 5.3 H, Albumin 3.5 Physical Exam Narrative General: Alert, Oriented x3, Cooperative, No apparent distress HEENT: Atraumatic, PERRLA, EOMI, Normocephalic Oral: Moist Mucosa Neck: Supple, No JVD Lungs: Diminished, Normal air movement, No rhonchi, scattered wheeze, No rales Cardiovascular: Regular rate, Regular Rhythm, Normal S1, Normal S2, No murmurs Abdomen: Soft, Non Tender, Non-Distended, No Hepato-splenomegaly Extremities: Edema, Capillary Refill Less than 3 Seconds Skin: No rashes, No breakdown Musculoskeletal: No Tenderness to Palpation of Joints or Extremities Neurological: No focal neurological deficits, Motor Exam 5/5 strength throughout, Sensory exam intact to light touch and pain Psych/Mental Status: Normal Affect, Appropriate Assessment & Plan Assessment/Plan (1) BARBARA (acute kidney injury): (2) Anemia: PLAN: Plan 1. BARBARA on CKD 3A/anemia ? FENa score indicates post obstruction, Mckenna is in place however no clear evidence that there is a post-renal obstruction ? Hold any nephrotoxic agents ? Appreciate nephrology's assistance ? Serologies are pending, SPEP and UPEP were added by nephrology to rule out multiple myeloma in the setting of her anemia ? Iron studies were inconclusive as her ferritin was little bit elevated unclear as to the source of her anemia at this time stool guaiac is pending ? Renal ultrasound with a mild hydronephrosis on the left ? Outpatient urine culture with 25-50,000 CFU's of E. coli, however she is afebrile without a leukocytosis so will not treat 2. HTN/HLD ? We will hold her losartan secondary to her renal disease ? Continue with her other home blood pressure medications ? Continue with her cholesterol medications 3. Asthma/MICAELA ? Stable ? Continue with CPAP as well as as needed inhalers DVT: Heparin Charges/Coding Visit Charges Inpatient E&M: 98969 Subs Hosp L2
[2023-08-12 15:08] LABS: Complement C3 159 mg/dL (82-167); Cytoplasmic Ab (C-ANCA) <1:20 titer (Neg:<1:20); Perinuclear Ab (P-ANCA) <1:20 titer (Neg:<1:20)
[2023-08-12] MEDS: Montelukast 10 MG Tablet PO (20:41)
[2023-08-12] MEDS: Pravastatin 20 MG Tablet PO (22:16)
--- NOTE | 2023-08-13 00:56 | NURSING ---
stool occult blood result noted negative.
[2023-08-13 03:00] VITALS: O2SAT 98
[2023-08-13] MEDS: Heparin Injection (Vial) 5,000 UNIT/ML VIAL 5000 UNIT SC (05:32)
[2023-08-13] MEDS: cloNIDine HCl 0.1 MG Tablet 0.299999999999999989 MG PO ×2 (05:33→14:18)
[2023-08-13 05:35] VITALS: BP 123/68; PULSE 67; RESP 15; TEMP 36.6; O2SAT 97
[2023-08-13 05:39] VITALS: BMI 41.8
[2023-08-13 07:29] VITALS: O2SAT 95
[2023-08-13 07:42] VITALS: BP 131/78; PULSE 64; RESP 16; TEMP 36.6; O2SAT 99
[2023-08-13] MEDS: Multivitamins,Therapeutic Tablet 1 TABLET PO (07:50)
[2023-08-13 08:53] LABS: Anion Gap 5 (5-15); BUN 46 mg/dL (7-18); BUN/Creat Ratio 11.9 RATIO (10-20); Calcium,Total 9.3 mg/dL (8.5-10.1); Chloride 108 mmol/L (98-107); Creatinine, Serum 3.86 mg/dL (0.55-1.02); EST Glomerular Filtration Rate 12 mL/min (>60); Est Glom Filt Rate - Afr Amer 15 mL/min (>60); Glucose 116 mg/dL (74-106); Potassium 4.1 mmol/L (3.5-5.1); Sodium Level 137 mmol/L (136-145)
[2023-08-13 10:09] LABS: Immunofixation Urine Comment: (.)
[2023-08-13] MEDS: Cholecalciferol (Vit D3) 125 MCG CAPSULE (5,000 UNITS) PO (10:37)
[2023-08-13] MEDS: amLODIPine 10 MG Tablet PO (10:37)
[2023-08-13] MEDS: Fenofibrate 145 MG Tablet PO (10:37)
--- NOTE | 2023-08-13 11:07 | PCM.DC ---
Discharge Instructions Diet Discharge Diet: Low fat / Low cholesterol Activity Discharge Activity: Return to Normal Activity Dressing / Incision Call your doctor if you observe: Fever of 101 or Higher, Shortness of breath, Dizziness, Fainting spells, Swelling in the ankles, Chest pain and Increased palpitations (irregular heartbeat) Follow Up Care Test Results: Test results from this visit will be discussed in further detail at your follow-up appointment, if applicable. Discharge Plan Admission Admit Date/Time: 08/10/23 19:06 Attending Provider: Braxton Edge Primary Care Provider: Tatyana Pretty Consulting Providers: Ale Gardiner; Anna Loyola Discharge Orders/Prescriptions Prescriptions: Continued (DME) Sleep apnea supplies Qty: 1 0RF Rx Instructions: Initiate CPAP at 7 cm of water with humidification. Mask per patient preference optional chinstrap if indicated, filters, tubing, humidifier, and lifetime supplies. diclofenac sodium [Voltaren Arthritis Pain] 1 % gel 4 g topical ONCE PRN (Reason: pain) Qty: 100 1RF Rx Instructions: apply to single knee, ankle, foot; for foot includes sole/toes/top of foot (DME) disability placard See Rx Instructions .ROUTE .MEDSUPPLY Qty: 1 0RF Rx Instructions: As directed, Length of time: 5 years (DME) walker [facility] See Rx Instructions .ROUTE .MEDSUPPLY Qty: 1 0RF Rx Instructions: As directed, with wheels (DME) Circaid See Rx Instructions .Route .MEDSUPPLY Qty: 2 0RF Rx Instructions: Wear daily (DME) compression socks See Rx Instructions .Route .MEDSUPPLY Qty: 3 2RF Rx Instructions: Wear daily (DME) blood pressure monitor Kit See Rx Instructions .ROUTE .MEDSUPPLY Qty: 1 0RF Rx Instructions: Check blood pressure twice daily amlodipine 10 mg tablet 10 mg PO DAILY Qty: 90 3RF clonidine HCl 0.3 mg tablet 0.3 mg PO TID Qty: 180 3RF fenofibrate 54 mg tablet 108 mg PO DAILY Qty: 180 3RF montelukast 10 mg tablet 10 mg PO QPM Qty: 90 3RF pravastatin 20 mg tablet 20 mg PO DAILY Qty: 90 3RF Airborne (ascorbic acid) 250-8.875 mg tablet,chewable 1 tab PO DAILY cholecalciferol (vitamin D3) 125 mcg (5,000 unit) capsule 125 mcg PO DAILY Qty: 90 3RF levocetirizine [Xyzal] 5 mg tablet 5 mg PO QPM PRN (Reason: allergy symptoms) Qty: 90 3RF fluticasone propionate 50 mcg/actuation spray,suspension 2 spray INTRANASAL DAILY Qty: 3 3RF albuterol sulfate [ProAir HFA] 90 mcg/actuation HFA aerosol inhaler 2 puff INHALATION Q4H PRN (Reason: shortness of breath or wheezing) 90 Days Qty: 8.5 3RF Discontinued losartan 100 mg tablet 100 mg PO DAILY Qty: 90 3RF Hold Instructions: said to hold d/t kidney function Referrals / Follow Up: Tatyana Pretty MD [Primary Care Provider] - Within 1 Week Ale Gardiner MD [Med Staff - Consulting] - Within 2 Weeks Disposition Disposition (needs filled in before D/C Order can be placed): Home, Self Care
--- NOTE | 2023-08-13 11:55 | CASEMGMT ---
JOVANY CM into pt room, pt denies any homegoing needs. Pt ambulated halls with physician. Pt states she has people to check in on her.
[2023-08-13 14:09] LABS: Immunoglobulin A 134 mg/dL (87-352); Immunoglobulin G 841 mg/dL (586-1602); Immunoglobulin M 100 mg/dL (26-217)
[2023-08-13 14:13] VITALS: BP 146/74; PULSE 87; RESP 16; TEMP 37.1; O2SAT 100
--- NOTE | 2023-08-13 14:14 | PCM.PN.REN ---
Subjective Subjective No overnight events. Denies any complaints. Mckenna removed and patient has voided. Objective Data Objective Data Vital Signs: Vital Signs Temp Pulse Resp BP Pulse Ox O2 Del Method 97.9 F 64 16 131/78 H 99 Room Air 08/13/23 07:42 08/13/23 07:42 08/13/23 07:42 08/13/23 07:42 08/13/23 07:42 08/13/23 07:42 Oxygen Delivery Method Room Air Weight: 94.1 kg Body Mass Index (BMI) 41.8 Intake & Output: Intake and Output for Last 24 Hours 08/11/23 08/12/23 08/13/23 23:59 23:59 23:59 Intake Total 2498.33 / 2498.33 2600 / 3300 700 / 700 Output Total 2400 / 2400 4950 / 6150 1700 / 1700 Balance 98.33 / 98.33 -2350 / -2850 -1000 / -1000 Lab / Micro Data 08/12/23 06:45 08/13/23 07:18 Labs: Laboratory Results - last 24 hr 08/10/23 20:24: c-ANCA Antibody <1:20, Atypical p-ANCA <1:20, p-ANCA Antibody <1:20, Complement C3 159, Complement C4 34, Tot Complement (CH50) 08/11/23 06:17: Miscellaneous Test Cancelled 08/11/23 12:15: Urine Immunofixation Comment: 08/12/23 06:45: IgG 841, IgA 134, IgM 100, Serum Immunofixation Comment H 08/13/23 07:18: Sodium 137, Potassium 4.1, Chloride 108 H, Carbon Dioxide 24.0, Anion Gap 5, BUN 46 H, Creatinine 3.86 H, Estim Creat Clear Calc 14.30, Est GFR (MDRD) Af Amer 15 L, Est GFR (MDRD) Non-Af 12 L, BUN/Creatinine Ratio 11.9, Glucose 116 H, Calcium 9.3 Micro: Microbiology 08/12/23 14:00 Stool Stool Occult Blood (COLLEEN) - Final Physical Exam Narrative Alert and orient x 3, no apparent distress S1, S2, RRR Lung sounds clear anteriorly and posteriorly Abdomen soft, positive bowel sounds No pitting edema Assessment & Plan Assessment/Plan (1) BARBARA (acute kidney injury): PLAN: Plan This is a 68-year-old female with past medical history significant for hypertension, hyperlipidemia, anxiety and depression, GERD, lymphedema who presented to emergency room yesterday under direction of PCP for abnormal labs, elevated creatinine of 4.56 on August 07. Nephrology consulted in view of rising creatinine. Patient reports she has not been seen by passenger service supervisor in past. -Nonoliguric BARBARA with unclear etiology. Creatinine 5.12 (this was peak) on 08/10, --> SCr 4.46mg/dL--> SCr 3.86. Bicarb and potassium normal, volume status acceptable. No acute indication for BAGGAGE INSPECTOR. Patient was initially started on IV fluids, received 2 L. off IV fluids and can keep off IV fluids. Quite possibly BARBARA from volume depletion, UTI, hypotension with concurrent Losartan. Serologies: C3, C4, Ds DNA, ANCAs all unremarkable, SPEP and UPEP pending. Noncontrast CT of abdomen pelvis: No evidence of renal calcifications or obstructive uropathy, mild perinephric soft tissue stranding which is nonspecific; renal ultrasound: Mild hydronephrosis on the left, no solid masses or calcifications noted bilaterally. Blood pressures were low at PCP office last week but have improved, patient is on amlodipine and clonidine. Baseline creatinine ranging around 1 to 1.3 mg/dL. Okay for discharge per renal. Will arrange for hospital follow-up in [place] office. Discussed with patient importance of avoiding NSAIDs.
--- NOTE | 2023-08-13 15:01 | PCM.DC.SUM ---
Providers Date of Admission: 08/10/23 Primary Care Physician: Dr. Tatyana Pretty MD Consultations 08/10/23 21:02 Consult: Nephrology Routine Consulting Provider: Ale Gardiner Reason for Consult: BARBARA on CKD EMERGENT Consult: No MD Notified: Yes Date Notified: 08/11/23 Time Notified: 06:51 Method of Notification: Text Reason For Visit: BARBARA ON CKD Diagnosis Discharge Diagnosis (1) BARBARA (acute kidney injury): Status: Acute Code(s): N17.9 - Acute kidney failure, unspecified Medications at Discharge Home Medications Sleep apnea supplies #1 ea 02/22/19 diclofenac sodium 1 % topical gel (Voltaren Arthritis Pain) 4 g topical ONCE PRN pain #100 grams 02/05/21 disability placard #1 ea 02/28/21 walker #1 ea 02/28/21 Circaid #2 ea 05/03/21 blood pressure monitor #1 ea 05/06/21 compression socks #3 ea 05/06/21 cholecalciferol (vitamin D3) 125 mcg (5,000 unit) capsule 125 mcg PO DAILY vitamin #90 caps 07/29/21 albuterol sulfate 90 mcg/actuation aerosol inhaler (ProAir HFA) 2 puff inhalation Q4H PRN shortness of breath or wheezing 3 months #8.5 grams 05/11/23 fluticasone propionate 50 mcg/actuation nasal spray,suspension 2 spray intranasal DAILY congestion #3 ea 05/11/23 levocetirizine 5 mg tablet (Xyzal) 5 mg PO QPM PRN allergy symptoms #90 tabs 05/11/23 amlodipine 10 mg tablet 10 mg PO DAILY bp #90 tabs 08/07/23 clonidine HCl 0.3 mg tablet 0.3 mg PO TID bp #180 tabs 08/07/23 fenofibrate 54 mg tablet 108 mg (2 x 54 mg) PO DAILY #180 tabs 08/07/23 montelukast 10 mg tablet 10 mg PO QPM asthma #90 tabs 08/07/23 pravastatin 20 mg tablet 20 mg PO DAILY hld #90 tabs 08/07/23 [id number] C 250 mg-herbal no.124 8.875 mg chewable tablet (Airborne (ascorbic acid)) 1 tab PO DAILY vitamin 08/10/23 Hospital Course Operations None Procedures None Summary of Care Provided Minutes Spent on Discharge: 39 Hospital Course: Per HPI: DON GRADY, is a 68 F who presented to the emergency department at [facility] on 08/10/2023 at the request of her primary care physician due to abnormal labs. Patient saw her primary care physician on 08/07/2023 due to 2 days of worsening urinary frequency with no dysuria, abdominal pain or otherwise feeling of unwellness. At that time a urine culture was obtained as well as labs.Basic metabolic profile at that time revealed a serum creatinine of 4.56 and a BUN of 51. Her baseline renal function appears to be between 1.1 and 1.4. At that point her primary care physician instructed her to stop her losartan and increase her fluid intake both of which she has done and they repeated her labs today on 08/10/2023. Her renal function has been found to be worsening despite interventions noted previously and is now 5.12 with a BUN of 53. Emergency department did obtain a FeNa and her FeNa is 6.79. She states that her urinary frequency has improved. She denies any significant abdominal pain. She reports that her legs are little bit more swollen than baseline however she has chronic lower extremity edema that has been present since about 2019. She has no pain. Vital signs on presentation showed temperature of 97.4, blood pressure of 118/66, respiratory rate 18 oxygen saturations between 99-100% room air. CBC shows a hemoglobin of 9.8 which is down from the range of 11-12 from the summer. She denies any abnormal stools, dark tarry stools or hematemesis. Outpatient chemistry was reviewed and again shows a BUN of 53 and a serum creatinine of 5.12. Her electrolytes all appear to be unremarkable. Anion gap is normal. Bicarb is 21. Her UA is overall fairly unremarkable with 15 mg/dL of protein no red cells, no white cells, no rare bacteria. Outpatient urine culture was reviewed and she is E. coli at 25,000-50,[address] of the abdomen pelvis shows moderate diverticulosis without diverticulitis, normal appendix, no evidence of renal calcification or obstructive uropathy with mild perinephritic soft tissue stranding, atelectasis at the lung bases with a trace right effusion and diffuse lumbar spondylosis and a grade 1 anterior listhesis at L4-L5 without change from previous. Hospital Course: 1. BARBARA on CKD 3A/anemia?68-year-old female presented to the hospital because of abnormal lab work as an outpatient. She was found to be in acute renal failure with her creatinine of 4.56 her baseline renal function is around 1.2. Initially her FENa demonstrated a postrenal obstruction causes for her renal failure however she has no hydronephrosis or outlet obstruction. Her losartan was discontinued given her BARBARA and nephrology was consulted. Multiple serological markers were obtained to rule out various causes that are still pending, her C3, C4, dsDNA, and ANCA's were all normal. She was started on IV fluids and received 2 L total. Her kidney function continued to improve and today she is down to 3.86 on the day of discharge. I discussed with her the plan for discharge today she expressed understanding of the risk benefits going home and would like to go home today. They recommended she follow-up with her PCP in 3 to 5 days to maintain continuity and to monitor her renal function as well as her hemoglobin. Iron studies had an elevated ferritin so it is unclear whether or not this is an iron deficiency anemia versus anemia of chronic disease. 2. Hypertension, hyperlipidemia, asthma, MICAELA are all chronic medical conditions which complicate her care. Her home medications were continued where appropriate. Her losartan was discontinued given her renal function. Physical Exam Narrative General: Alert, Oriented x3, Cooperative, No apparent distress HEENT: Atraumatic, PERRLA, EOMI, Normocephalic Oral: Moist Mucosa Neck: Supple, No JVD Lungs: Diminished, Normal air movement, No rhonchi, scattered wheeze, No rales Cardiovascular: Regular rate, Regular Rhythm, Normal S1, Normal S2, No murmurs Abdomen: Soft, Non Tender, Non-Distended, No Hepato-splenomegaly Extremities: Edema, Capillary Refill Less than 3 Seconds Skin: No rashes, No breakdown Musculoskeletal: No Tenderness to Palpation of Joints or Extremities Neurological: No focal neurological deficits, Motor Exam 5/5 strength throughout, Sensory exam intact to light touch and pain Psych/Mental Status: Normal Affect, Appropriate Weight / BMI Weight Weight: 207 lb 7.28 oz Body Mass Index (BMI) 41.8 ABG / Lab / Microbiology Data 08/12/23 06:45 08/13/23 07:18 Laboratory: Laboratory Results - last 24 hr 08/10/23 20:24: c-ANCA Antibody <1:20, Atypical p-ANCA <1:20, p-ANCA Antibody <1:20, Complement C3 159, Complement C4 34 08/11/23 12:15: Urine Immunofixation Comment: 08/12/23 06:45: IgG 841, IgA 134, IgM 100, Serum Immunofixation Comment H 08/13/23 07:18: Sodium 137, Potassium 4.1, Chloride 108 H, Carbon Dioxide 24.0, Anion Gap 5, BUN 46 H, Creatinine 3.86 H, Estim Creat Clear Calc 14.30, Est GFR (MDRD) Af Amer 15 L, Est GFR (MDRD) Non-Af 12 L, BUN/Creatinine Ratio 11.9, Glucose 116 H, Calcium 9.3 Microbiology: Microbiology 08/12/23 14:00 Stool Stool Occult Blood (COLLEEN) - Final D/C Instructions Discharge Diet: Low fat / Low cholesterol Call your doctor if you observe: Fever of 101 or Higher, Shortness of breath, Dizziness, Fainting spells, Swelling in the ankles, Chest pain and Increased palpitations (irregular heartbeat) Meaningful Use Info Meaningful Use Diagnoses (Choose all that apply): None applicable Discharge Plan Admission Admit Date/Time: 08/10/23 19:06 Attending Provider: Braxton Edge Primary Care Provider: Tatyana Pretty Consulting Providers: Ale Gardiner; Anna Loyola Instructions Additional Instructions / Restrictions: Follow-up with your PCP in 3 to 5 days to monitor your renal function. I have discontinued your losartan as this can affect your kidney function. You also need to stay away from anti-inflammatory medications including Aleve, ibuprofen, meloxicam among others. Discharge Orders/Prescriptions Prescriptions: Continued (DME) Sleep apnea supplies Qty: 1 0RF Rx Instructions: Initiate CPAP at 7 cm of water with humidification. Mask per patient preference optional chinstrap if indicated, filters, tubing, humidifier, and lifetime supplies. diclofenac sodium [Voltaren Arthritis Pain] 1 % gel 4 g topical ONCE PRN (Reason: pain) Qty: 100 1RF Rx Instructions: apply to single knee, ankle, foot; for foot includes sole/toes/top of foot (DME) disability placard See Rx Instructions .ROUTE .MEDSUPPLY Qty: 1 0RF Rx Instructions: As directed, Length of time: 5 years (DME) walker [facility] [place] See Rx Instructions .ROUTE .MEDSUPPLY Qty: 1 0RF Rx Instructions: As directed, with wheels (DME) Circaid See Rx Instructions .Route .MEDSUPPLY Qty: 2 0RF Rx Instructions: Wear daily (DME) compression socks See Rx Instructions .Route .MEDSUPPLY Qty: 3 2RF Rx Instructions: Wear daily (DME) blood pressure monitor Kit See Rx Instructions .ROUTE .MEDSUPPLY Qty: 1 0RF Rx Instructions: Check blood pressure twice daily amlodipine 10 mg tablet 10 mg PO DAILY Qty: 90 3RF clonidine HCl 0.3 mg tablet 0.3 mg PO TID Qty: 180 3RF fenofibrate 54 mg tablet 108 mg PO DAILY Qty: 180 3RF montelukast 10 mg tablet 10 mg PO QPM Qty: 90 3RF pravastatin 20 mg tablet 20 mg PO DAILY Qty: 90 3RF Airborne (ascorbic acid) 250-8.875 mg tablet,chewable 1 tab PO DAILY cholecalciferol (vitamin D3) 125 mcg (5,000 unit) capsule 125 mcg PO DAILY Qty: 90 3RF levocetirizine [Xyzal] 5 mg tablet 5 mg PO QPM PRN (Reason: allergy symptoms) Qty: 90 3RF fluticasone propionate 50 mcg/actuation spray,suspension 2 spray INTRANASAL DAILY Qty: 3 3RF albuterol sulfate [ProAir HFA] 90 mcg/actuation HFA aerosol inhaler 2 puff INHALATION Q4H PRN (Reason: shortness of breath or wheezing) 90 Days Qty: 8.5 3RF Discontinued losartan 100 mg tablet 100 mg PO DAILY Qty: 90 3RF Hold Instructions: said to hold d/t kidney function Referrals / Follow Up: Tatyana Pretty MD [Primary Care Provider] - 08/17/23 2:45 pm Ale Gardiner MD [Med Staff - Consulting] - Within 2 Weeks Disposition Disposition (needs filled in before D/C Order can be placed): Home, Self Care Charges/Coding Visit Charges Inpatient E&M: 35259 Disch Hosp >30min
== END 2023-08-13 16:19 | disposition home or self-care (01) | DRG 683 ==
LOC: ED 19:52 → MS3 20:35
PROVIDERS: Nurse Practitioner Adult Health; Admitting Provider Internal Medicine; Emergency Provider Emergency Medicine; PCP Internal Medicine; Visit Provider Family Medicine
DX: N17.9 Acute kidney failure, unspecified (principal); Z68.41 Body mass index [BMI] 40.0-44.9, adult; N39.0 Urinary tract infection, site not specified; D63.8 Anemia in other chronic diseases classified elsewhere; N18.31 Chronic kidney disease, stage 3a; E66.01 Morbid (severe) obesity due to excess calories; I12.9 Hypertensive chronic kidney disease with stage 1 through stage 4 chronic kidney disease, or unspecified chronic kidney disease; J45.909 Unspecified asthma, uncomplicated; E55.9 Vitamin D deficiency, unspecified; I89.0 Lymphedema, not elsewhere classified; G47.33 Obstructive sleep apnea (adult) (pediatric); E78.00 Pure hypercholesterolemia, unspecified; N13.30 Unspecified hydronephrosis; Z79.899 Other long term (current) drug therapy; Z79.51 Long term (current) use of inhaled steroids; Z87.891 Personal history of nicotine dependence
CPT/HCPCS: 36415; 71045; 74176; 76770; 80048; 80053; 80069; 80076; 81001; 82248; 82274; 82570; 82728; 82784; 83540; 83550; 83735; 84100; 84300; 84443; 85025; 85045; 86160; 86162; 86225; 86235; 86256; 86334; 86335; 87077; 87086; 87088; 87186; 94640; 94668; 99285; J7030

== ENCOUNTER → 2023-08-10 | Outpatient (CLI) | payer MEDICARE, SELFPAY ==
--- OUTSIDE RECORDS SUMMARY | 2023-08-10 09:57 | XMS RPT_ITS | CCD ---
Author Name Unknown Address [address] [place] [address] Organization [facility] Results Test Name Value Interpretation [...] BE BASED ON THE PRIMARY CLINICAL RECORDS. [employer]. provides no warranty or guarantee of the accuracy or completeness of information in this document.
[2023-08-10 13:00] LABS: Anion Gap 8 (5-15); BUN 53 mg/dL (7-18); BUN/Creat Ratio 10.4 RATIO (10-20); Calcium,Total 9.1 mg/dL (8.5-10.1); Chloride 108 mmol/L (98-107); Creatinine, Serum 5.12 mg/dL (0.55-1.02); EST Glomerular Filtration Rate 9 mL/min (>60); Est Glom Filt Rate - Afr Amer 11 mL/min (>60); Glucose 110 mg/dL (74-106); Potassium 4.5 mmol/L (3.5-5.1); Sodium Level 137 mmol/L (136-145)
== END | disposition home or self-care (01) ==
PROVIDERS: PCP Internal Medicine; Referring Provider Internal Medicine; Visit Provider Internal Medicine
DX: N17.9 Acute kidney failure, unspecified (principal)
CPT/HCPCS: 36415; 80048

== ENCOUNTER → 2023-08-17 | Outpatient (CLI) | payer MEDICARE, SELFPAY ==
--- OUTSIDE RECORDS SUMMARY | 2023-08-17 11:45 | XMS RPT_ITS | CCD ---
Author Name Unknown Address [address] [place] [address] Organization [facility] Results Test Name Value Interpretation [...] BE BASED ON THE PRIMARY CLINICAL RECORDS. [email or web address] provides no warranty or guarantee of the accuracy or completeness of information in this document.
[2023-08-17 13:20] LABS: ALB/GLOB Ratio 1.3 RATIO (0.9-2.4); AST(SGOT) 24 U/L (15-37); Alanine Aminotransfer ALT/SGPT 23 U/L (13-56); Albumin, Serum 4.6 g/dL (3.2-5.0); Alkaline Phosphatase 80 U/L (45-117); Anion Gap 8 (5-15); BUN 36 mg/dL (7-18); BUN/Creat Ratio 13.5 RATIO (10-20); Calcium,Total 9.5 mg/dL (8.5-10.1); Chloride 101 mmol/L (98-107); Creatinine, Serum 2.67 mg/dL (0.55-1.02); EST Glomerular Filtration Rate 19 mL/min (>60); Est Glom Filt Rate - Afr Amer 23 mL/min (>60); Globulin 3.6 g/dL (2.2-4.2); Glucose 90 mg/dL (74-106); Potassium 4.3 mmol/L (3.5-5.1); Protein, Total 8.2 g/dL (6.4-8.2); Sodium Level 133 mmol/L (136-145)
[2023-08-17 14:17] LABS: Bacteria 0 SEEN /hpf (None Seen); Mucous, Urine 0 SEEN /hpf (<or=2+); Red Blood Cells-Urine 0 SEEN /hpf (0-5); Squamous Epithelial Cells - UA 0 SEEN /hpf (5-10)
[2023-08-17 14:33] LABS: Absolute Lymphocyte Count 2.88 X10^3/uL (0.83-4.51); Absolute Neutrophil Count 4.9 X10^3/uL (2.0-7.7); Basophil# 0.06 X10^3/uL; Basophil% 0.7 % (0-1); Eosinophil# 0.27 X10^3/uL; Eosinophils% 3.1 % (0-5); Hematocrit 31.9 % (37-47); Hemoglobin 10.1 g/dL (12.0-15.0); Lymphocyte # 2.88 X10^3/ul (0.83-4.51); Lymphocyte % 32.5 % (19-41); Mean Corp Hgb Conc 31.7 g/dL (32-36); Mean Corpuscular Hgb 29.4 pg (27.0-32.0); Mean Platelet Vol. 10.7 fl (6.2-12.0); Monocyte# 0.72 X10^3/uL; Monocyte% 8.1 % (0-10); NRBC Flagged by Analyzer 0 % (0-5); Neutrophil # 4.87 X10^3/uL (2.7-7.7); Platelet Count 394 K/mm3 (150-450); RBC Distribution Width CV 13.1 % (11.6-14.6); RBC Distribution Width SD 44.4 fl (35.1-43.9); Red Blood Count 3.43 M/mm3 (4.2-5.4); White Blood Count 8.9 K/mm3 (4.4-11.0)
[2023-08-17 15:30] LABS: Color, Urine Straw (Yellow); Glucose, Dipstick Normal (Normal); Ketone-Dipstick Negative (Negative); Leukocyte Esterase-Dipstick 100 /ul (Negative); Nitrite-Dipstick Negative (Negative); Occult Blood-Urine Negative /ul (Negative); Protein-Dipstick Negative (Negative); Specific Gravity, Urine 1.005 (1.002-1.030); Urine Bilirubin Dipstick Negative (Negative); Urine Clarity Clear (Clear); Urine Urobilinogen Normal (Normal)
[2023-08-17 16:01] LABS: White Blood Cells 0-5 SEEN /hpf (0-5)
== END | disposition home or self-care (01) ==
LOC: BIMLAB 11:33
PROVIDERS: PCP Internal Medicine; Visit Provider Internal Medicine
DX: D64.9 Anemia, unspecified (principal); N17.9 Acute kidney failure, unspecified
CPT/HCPCS: 36415; 80053; 81001; 85025

== ENCOUNTER → 2023-08-24 | Outpatient (CLI) | payer MEDICARE, SELFPAY ==
--- OUTSIDE RECORDS SUMMARY | 2023-08-24 10:45 | XMS RPT_ITS | CCD ---
Author Name Unknown Address [address] [place] [address] Organization [facility] Results Test Name Value Interpretation [...] BE BASED ON THE PRIMARY CLINICAL RECORDS. [employer]. provides no warranty or guarantee of the accuracy or completeness of information in this document.
[2023-08-24 12:24] LABS: Anion Gap 7 (5-15); BUN 22 mg/dL (7-18); BUN/Creat Ratio 14.5 RATIO (10-20); Calcium,Total 9.8 mg/dL (8.5-10.1); Chloride 107 mmol/L (98-107); Creatinine, Serum 1.52 mg/dL (0.55-1.02); EST Glomerular Filtration Rate 36 mL/min (>60); Est Glom Filt Rate - Afr Amer 44 mL/min (>60); Glucose 101 mg/dL (74-106); Potassium 3.9 mmol/L (3.5-5.1); Sodium Level 140 mmol/L (136-145)
== END | disposition home or self-care (01) ==
LOC: BIMLAB 10:15
PROVIDERS: PCP Internal Medicine; Referring Provider Internal Medicine; Visit Provider Internal Medicine
DX: N17.9 Acute kidney failure, unspecified (principal)
CPT/HCPCS: 36415; 80048

== ENCOUNTER → 2023-09-03 | Outpatient (CLI) | payer MEDICARE, SELFPAY ==
--- OUTSIDE RECORDS SUMMARY | 2023-09-03 09:34 | XMS RPT_ITS | CCD ---
Author Name Unknown Address [address] [place] [address] Organization [facility] Results Test Name Value Interpretation [...] BE BASED ON THE PRIMARY CLINICAL RECORDS. [employer]. provides no warranty or guarantee of the accuracy or completeness of information in this document.
[2023-09-03 13:18] LABS: Anion Gap 4 (5-15); BUN 16 mg/dL (7-18); BUN/Creat Ratio 11.4 RATIO (10-20); Calcium,Total 10.3 mg/dL (8.5-10.1); Chloride 108 mmol/L (98-107); EST Glomerular Filtration Rate 40 mL/min (>60); Est Glom Filt Rate - Afr Amer 48 mL/min (>60); Glucose 105 mg/dL (74-106); Sodium Level 138 mmol/L (136-145)
== END | disposition home or self-care (01) ==
LOC: BIMLAB 09:06
PROVIDERS: PCP Internal Medicine; Visit Provider Internal Medicine Nephrology
DX: N17.9 Acute kidney failure, unspecified (principal)
CPT/HCPCS: 36415; 80048

== ENCOUNTER → 2023-09-14 | Outpatient (CLI) | payer MEDICARE, SELFPAY ==
[2023-09-14 12:48] LABS: Absolute Lymphocyte Count 2.46 X10^3/uL (0.83-4.51); Absolute Neutrophil Count 2.9 X10^3/uL (2.0-7.7); Basophil# 0.05 X10^3/uL; Basophil% 0.8 % (0-1); Eosinophils% 3.2 % (0-5); Hematocrit 31.8 % (37-47); Hemoglobin 10.4 g/dL (12.0-15.0); Lymphocyte # 2.46 X10^3/ul (0.83-4.51); Lymphocyte % 39.8 % (19-41); Mean Corp Hgb Conc 32.7 g/dL (32-36); Mean Corpuscular Hgb 30.2 pg (27.0-32.0); Mean Corpuscular Volume 92.4 fL (81-99); Mean Platelet Vol. 9.7 fl (6.2-12.0); Monocyte# 0.56 X10^3/uL; Monocyte% 9.1 % (0-10); NRBC Flagged by Analyzer 0 % (0-5); Neutrophil # 2.88 X10^3/uL (2.7-7.7); Neutrophil % 46.6 % (47-70); Platelet Count 366 K/mm3 (150-450); RBC Distribution Width CV 13.2 % (11.6-14.6); RBC Distribution Width SD 44.4 fl (35.1-43.9); Red Blood Count 3.44 M/mm3 (4.2-5.4); White Blood Count 6.2 K/mm3 (4.4-11.0)
[2023-09-14 13:20] LABS: ALB/GLOB Ratio 1.3 RATIO (0.9-2.4); AST(SGOT) 19 U/L (15-37); Alanine Aminotransfer ALT/SGPT 24 U/L (13-56); Albumin, Serum 4.3 g/dL (3.2-5.0); Alkaline Phosphatase 88 U/L (45-117); Anion Gap 4 (5-15); BUN 16 mg/dL (7-18); Calcium,Total 9.8 mg/dL (8.5-10.1); Chloride 109 mmol/L (98-107); Creatinine, Serum 1.23 mg/dL (0.55-1.02); EST Glomerular Filtration Rate 46 mL/min (>60); Est Glom Filt Rate - Afr Amer 56 mL/min (>60); Globulin 3.4 g/dL (2.2-4.2); Glucose 87 mg/dL (74-106); Potassium 3.8 mmol/L (3.5-5.1); Protein, Total 7.7 g/dL (6.4-8.2); Sodium Level 140 mmol/L (136-145)
== END | disposition home or self-care (01) ==
LOC: BIMLAB 11:38
PROVIDERS: PCP Internal Medicine; Visit Provider Internal Medicine
DX: D64.9 Anemia, unspecified (principal); N17.9 Acute kidney failure, unspecified; E78.5 Hyperlipidemia, unspecified
CPT/HCPCS: 36415; 80053; 85025

== ENCOUNTER → 2023-09-23 | Outpatient (CLI) | payer MEDICARE, SELFPAY ==
--- NOTE | 2023-09-23 15:11 | BI_ITS ---
MAMMOGRAPHY - BILATERAL SCREENING REASON FOR EXAM: Female, 68 years old. Routine annual screening examination. PERTINENT HISTORY: Sisters with breast cancer. History of remote right excisional breast biopsy. TECHNIQUE: Digital bilateral breast pillo (3D mammographic acquisition) in the CC and MLO projections. 2-D mediolateral oblique (MLO) and craniocaudad (CC) views of both breasts were obtained. CAD: Full Field Digital Mammography with Computer Added Detection was performed. COMPARISON: Comparison is made with prior study dated 2022 and May 09, 2020. FINDINGS: Breast Composition: The breasts are heterogeneously dense, which may obscure small masses. There are no dominant masses or suspicious calcifications. Stable postoperative changes in the inferior lateral aspect of the right breast and keep with history of prior excisional breast biopsy. Stable small fat-containing bilateral axillary lymph nodes. No other significant abnormalities are identified. There has been no significant change since the prior study. BI/SCRN MAMM (CAD)W/PILLO BILAT IMPRESSION: Stable bilateral screening mammogram. Yearly follow-up mammogram recommended. (A) ASSESSMENT CATEGORY: BIRADS Category 2: Benign. A letter regarding these results will be sent to the patient by the facility within 30 days. Approximately 10% of breast cancers are not detected by mammography. A normal mammogram should not delay biopsy of a clinically suspicious abnormality. [id number] Electronically Signed: Carl Castañeda MD at 8:19 EDT ,
== END | disposition home or self-care (01) ==
LOC: OPBI 15:11
PROVIDERS: PCP Internal Medicine; Referring Provider Internal Medicine; Visit Provider Internal Medicine
DX: Z12.31 Encounter for screening mammogram for malignant neoplasm of breast (principal)
CPT/HCPCS: 77063; 77067

== ENCOUNTER → 2023-10-30 | Outpatient (CLI) | payer MEDICARE, SELFPAY ==
[2023-10-30 15:45] LABS: Albumin, Serum 3.9 g/dL (3.2-5.0); BUN 15 mg/dL (7-18); Calcium,Total 9.5 mg/dL (8.5-10.1); Chloride 110 mmol/L (98-107); Creatinine, Serum 0.88 mg/dL (0.55-1.02); EST Glomerular Filtration Rate 67 mL/min (>60); Est Glom Filt Rate - Afr Amer 82 mL/min (>60); Glucose 98 mg/dL (74-106); Phosphorus 2.9 mg/dL (2.5-4.9); Potassium 3.7 mmol/L (3.5-5.1); Sodium Level 141 mmol/L (136-145)
[2023-10-30 15:52] LABS: Protein, Urine (Random) 10.6 mg/dL (<11.9); Protein:Creat Ratio 202 mg/g CRE (0-200)
[2023-11-02 17:07] LABS: Free Kappa Light Chains 27.7 mg/L (3.3-19.4); Free Lambda Light Chains 14.3 mg/L (5.7-26.3); PROEL- A/G Ratio 1.1 (0.7-1.7); PROEL- Albumin 3.8 g/dL (2.9-4.4); PROEL- Alpha-1 Globulin 0.2 g/dL (0.0-0.4); PROEL- Alpha-2 Globulin 0.8 g/dL (0.4-1.0); PROEL- Beta Globulin 1.3 g/dL (0.7-1.3); PROEL- Gamma Globulin 1.1 g/dL (0.4-1.8); PROEL- Globulin, Total 3.4 g/dL (2.2-3.9); PROEL- TOTAL PROTEIN 7.2 g/dL (6.0-8.5); PROEL-M-Spike Comment: g/dL (Not Observed)
== END | disposition home or self-care (01) ==
LOC: BIMLAB 11:39
PROVIDERS: PCP Internal Medicine; Referring Provider Internal Medicine Nephrology; Visit Provider Internal Medicine Nephrology
DX: N18.32 Chronic kidney disease, stage 3b (principal)
CPT/HCPCS: 36415; 80069; 82570; 83883; 84156; 84165

== ENCOUNTER → 2023-12-23 | Outpatient (CLI) | payer MEDICARE, SELFPAY ==
[2023-12-23 15:59] LABS: Absolute Lymphocyte Count 2.46 X10^3/uL (0.83-4.51); Absolute Neutrophil Count 3.4 X10^3/uL (2.0-7.7); Basophil# 0.04 X10^3/uL; Basophil% 0.6 % (0-1); Eosinophil# 0.14 X10^3/uL; Eosinophils% 2.1 % (0-5); Hematocrit 37.5 % (37-47); Lymphocyte # 2.46 X10^3/ul (0.83-4.51); Lymphocyte % 37.5 % (19-41); Mean Corpuscular Hgb 29.3 pg (27.0-32.0); Mean Corpuscular Volume 91.5 fL (81-99); Mean Platelet Vol. 9.9 fl (6.2-12.0); Monocyte# 0.46 X10^3/uL; NRBC Flagged by Analyzer 0 % (0-5); Neutrophil # 3.43 X10^3/uL (2.7-7.7); Neutrophil % 52.3 % (47-70); Platelet Count 330 K/mm3 (150-450); RBC Distribution Width CV 13.3 % (11.6-14.6); RBC Distribution Width SD 44.8 fl (35.1-43.9); White Blood Count 6.6 K/mm3 (4.4-11.0)
[2023-12-23 16:34] LABS: ALB/GLOB Ratio 1.3 RATIO (0.9-2.4); AST(SGOT) 18 U/L (15-37); Alanine Aminotransfer ALT/SGPT 19 U/L (13-56); Albumin, Serum 4.4 g/dL (3.2-5.0); Alkaline Phosphatase 100 U/L (45-117); Anion Gap 9 (5-15); BUN 18 mg/dL (7-18); BUN/Creat Ratio 17.6 RATIO (10-20); Calcium,Total 9.8 mg/dL (8.5-10.1); Chloride 105 mmol/L (98-107); Cholesterol 172 mg/dL (200); Creatinine, Serum 1.02 mg/dL (0.55-1.02); EST Glomerular Filtration Rate 57 mL/min (>60); Est Glom Filt Rate - Afr Amer 69 mL/min (>60); Ferritin 324 ng/mL (8-252); Globulin 3.5 g/dL (2.2-4.2); Glucose 90 mg/dL (74-106); High Density Lipoprotein 67 mg/dL; Iron 54 ug/dL (50-170); Iron Binding Capacity,Total 459 ug/dL (250-450); Potassium 3.9 mmol/L (3.5-5.1); Protein, Total 7.9 g/dL (6.4-8.2); Sodium Level 138 mmol/L (136-145); Triglycerides 149 mg/dL; Very Low Density Lipoprotein 30 mg/dL (5-40)
== END | disposition home or self-care (01) ==
PROVIDERS: PCP Internal Medicine; Visit Provider Internal Medicine
DX: I10 Essential (primary) hypertension (principal); D64.9 Anemia, unspecified; E78.2 Mixed hyperlipidemia
CPT/HCPCS: 36415; 80053; 80061; 82728; 83540; 83550; 85025

== ENCOUNTER → 2024-03-23 | Outpatient (CLI) | payer MEDICARE, SELFPAY ==
[2024-03-23 17:01] LABS: Anion Gap 9 (5-15); BUN 16 mg/dL (7-18); BUN/Creat Ratio 14.8 RATIO (10-20); Calcium,Total 9.8 mg/dL (8.5-10.1); Chloride 104 mmol/L (98-107); Creatinine, Serum 1.08 mg/dL (0.55-1.02); EST Glomerular Filtration Rate 54 mL/min (>60); Est Glom Filt Rate - Afr Amer 65 mL/min (>60); Glucose 115 mg/dL (74-106); Potassium 4.2 mmol/L (3.5-5.1); Sodium Level 140 mmol/L (136-145)
== END | disposition home or self-care (01) ==
LOC: BIMLAB 14:41
PROVIDERS: PCP Internal Medicine; Referring Provider Internal Medicine; Visit Provider Internal Medicine
DX: N18.30 Chronic kidney disease, stage 3 unspecified (principal)
CPT/HCPCS: 36415; 80048

== ENCOUNTER → 2024-06-29 | Outpatient (CLI) | payer MEDICARE, SELFPAY ==
[2024-06-29 15:40] LABS: Absolute Neutrophil Count 3.6 X10^3/uL (2.0-7.7); Basophil# 0.07 X10^3/uL; Eosinophil# 0.15 X10^3/uL; Eosinophils% 2.1 % (0-5); Hematocrit 38.4 % (37-47); Hemoglobin 12.6 g/dL (12.0-15.0); Lymphocyte % 38.1 % (19-41); Mean Corp Hgb Conc 32.8 g/dL (32-36); Mean Corpuscular Hgb 29.9 pg (27.0-32.0); Mean Corpuscular Volume 91.2 fL (81-99); Mean Platelet Vol. 10.3 fl (6.2-12.0); Monocyte# 0.51 X10^3/uL; Monocyte% 7.2 % (0-10); NRBC Flagged by Analyzer 0 % (0-5); Neutrophil # 3.62 X10^3/uL (2.7-7.7); Neutrophil % 51.2 % (47-70); Platelet Count 386 K/mm3 (150-450); RBC Distribution Width CV 13.4 % (11.6-14.6); RBC Distribution Width SD 45.1 fl (35.1-43.9); Red Blood Count 4.21 M/mm3 (4.2-5.4); White Blood Count 7.1 K/mm3 (4.4-11.0)
[2024-06-29 16:01] LABS: ALB/GLOB Ratio 1.1 RATIO (0.9-2.4); AST(SGOT) 18 U/L (15-37); Alanine Aminotransfer ALT/SGPT 24 U/L (13-56); Albumin, Serum 4.4 g/dL (3.2-5.0); Alkaline Phosphatase 113 U/L (45-117); Anion Gap 7 (5-15); BUN 15 mg/dL (7-18); Calcium,Total 10.1 mg/dL (8.5-10.1); Chloride 107 mmol/L (98-107); Creatinine, Serum 1.07 mg/dL (0.55-1.02); EST Glomerular Filtration Rate 54 mL/min (>60); Est Glom Filt Rate - Afr Amer 65 mL/min (>60); Glucose 115 mg/dL (74-106); Potassium 3.5 mmol/L (3.5-5.1); Protein, Total 8.4 g/dL (6.4-8.2); Sodium Level 139 mmol/L (136-145)
== END | disposition home or self-care (01) ==
LOC: BIMLAB 13:30
PROVIDERS: PCP Internal Medicine; Referring Provider Internal Medicine; Visit Provider Internal Medicine
DX: I10 Essential (primary) hypertension (principal); E78.2 Mixed hyperlipidemia
CPT/HCPCS: 36415; 80053; 85025

== ENCOUNTER → 2024-09-28 | Outpatient (CLI) | payer MEDICARE, SELFPAY ==
[2024-09-28 19:25] LABS: Anion Gap 15 (5-15); BUN 13 mg/dL (4-19); BUN/Creat Ratio 13.5 RATIO (10-20); Calcium,Total 10.4 mg/dL (7.6-11.0); Carbon Dioxide 21.8 mmol/L (21.0-32.0); Chloride 102 mmol/L (98-108); Creatinine, Serum 0.95 mg/dL (0.70-1.20); EST Glomerular Filtration Rate 65 (>60); Glucose 98 mg/dL (70-99); Sodium Level 139 mmol/L (133-145)
[2024-09-28 22:37] LABS: Microalbumin,Random Urine 20.4 mg/L (NO RANGE EST.)
[2024-09-28 22:50] LABS: Microalbumin:Creatinine Ratio 1165.7 mg/g CRE
== END | disposition home or self-care (01) ==
PROVIDERS: PCP Internal Medicine; Referring Provider Internal Medicine; Visit Provider Internal Medicine
DX: I12.9 Hypertensive chronic kidney disease with stage 1 through stage 4 chronic kidney disease, or unspecified chronic kidney disease (principal); N18.30 Chronic kidney disease, stage 3 unspecified
CPT/HCPCS: 36415; 80048; 82043; 82570

== ENCOUNTER → 2024-10-07 | Outpatient (CLI) | payer MEDICARE, SELFPAY ==
--- NOTE | 2024-10-07 12:45 | BI_ITS ---
EXAM: SCRN MAMM (CAD)W/PILLO BILAT 10/07/2024 CLINICAL HISTORY: F, Age 69 y/o , BREAST CANCER SCREENING TECHNIQUE: Bilateral screening digital breast tomosynthesis with 2D and 3D images. Computer aided detection. COMPARISON: Prior exam(s) dated 09/23/2023, 07/30/2022. FINDINGS: TISSUE DENSITY: The breast tissue is heterogenously dense, which may obscure small masses. The mammogram demonstrates that the patient has dense breasts. Supplemental screening with whole breast ultrasound or MRI may be considered for further evaluation. Bilateral Breast Mammographic Findings: No significant masses, calcifications or other abnormalities are identified. BI/SCRN MAMM (CAD)W/PILLO BILAT IMPRESSION: Right Breast: BIRADS 1 NEGATIVE. Left Breast: BIRADS 1 NEGATIVE. OVERALL FINAL ASSESSMENT: BIRADS 1 NEGATIVE. RECOMMENDATION: Routine annual follow-up in 1 Year A letter with findings and recommendations will be mailed to the patient. Reading Location: [id number]
== END | disposition home or self-care (01) ==
LOC: OPBI 12:26
PROVIDERS: PCP Internal Medicine; Referring Provider Internal Medicine; Visit Provider Internal Medicine
DX: Z12.31 Encounter for screening mammogram for malignant neoplasm of breast (principal)
CPT/HCPCS: 77063; 77067

== ENCOUNTER → 2024-12-21 | Outpatient (CLI) | payer MEDICARE, SELFPAY ==
[2024-12-21 12:54] LABS: Absolute Lymphocyte Count 2.28 X10^3/uL (0.83-4.51); Absolute Neutrophil Count 3.7 X10^3/uL (2.0-7.7); Basophil# 0.04 X10^3/uL; Basophil% 0.6 % (0-1); Eosinophil# 0.18 X10^3/uL; Eosinophils% 2.7 % (0-5); Hematocrit 36.3 % (37-47); Hemoglobin 11.7 g/dL (12.0-15.0); Lymphocyte # 2.28 X10^3/ul (0.83-4.51); Lymphocyte % 33.7 % (19-41); Mean Corp Hgb Conc 32.2 g/dL (32-36); Mean Corpuscular Hgb 29.9 pg (27.0-32.0); Mean Corpuscular Volume 92.8 fL (81-99); Mean Platelet Vol. 10.4 fl (6.2-12.0); Monocyte# 0.51 X10^3/uL; Monocyte% 7.5 % (0-10); NRBC Flagged by Analyzer 0 % (0-5); Neutrophil # 3.69 X10^3/uL (2.7-7.7); Neutrophil % 54.6 % (47-70); Platelet Count 338 K/mm3 (150-450); RBC Distribution Width CV 13.5 % (11.6-14.6); RBC Distribution Width SD 45.8 fl (35.1-43.9); Red Blood Count 3.91 M/mm3 (4.2-5.4); White Blood Count 6.8 K/mm3 (4.4-11.0)
[2024-12-21 13:23] LABS: ALB/GLOB Ratio 1.7 RATIO (0.9-2.4); AST(SGOT) 21 U/L (<=31); Alanine Aminotransfer ALT/SGPT 14 U/L (<=34); Albumin, Serum 4.7 g/dL (3.4-4.8); Alkaline Phosphatase 118 U/L (35-104); Anion Gap 13 (5-15); BUN 18 mg/dL (4-19); BUN/Creat Ratio 19.5 RATIO (10-20); Calcium,Total 9.9 mg/dL (7.6-11.0); Chloride 104 mmol/L (98-108); Cholesterol 178 mg/dL (<=200); Creatinine, Serum 0.91 mg/dL (0.70-1.20); EST Glomerular Filtration Rate 68 (>60); Globulin 2.8 g/dL (2.2-4.2); Glucose 125 mg/dL (70-99); High Density Lipoprotein 62 mg/dL; Low Density Lipoprotein Calc. 83 mg/dL; Potassium 3.8 mmol/L (3.3-5.1); Protein, Total 7.5 g/dL (5.9-8.4); Sodium Level 140 mmol/L (133-145); Total Bilirubin 0.22 mg/dL (0.00-1.30); Triglycerides 163 mg/dL; Very Low Density Lipoprotein 33 mg/dL (5-40); cholesterol:hdl ratio screen 2.87
[2024-12-22 11:48] LABS: Hemoglobin A1c 5.8 % (<=5.6)
== END | disposition home or self-care (01) ==
LOC: BIMLAB 09:51
PROVIDERS: PCP Internal Medicine; Referring Provider Internal Medicine; Visit Provider Internal Medicine
DX: E78.2 Mixed hyperlipidemia (principal); I10 Essential (primary) hypertension; R73.9 Hyperglycemia, unspecified
CPT/HCPCS: 36415; 80053; 80061; 83036; 85025

== ENCOUNTER → 2024-12-29 | Outpatient (CLI) | payer MEDICARE, SELFPAY ==
--- NOTE | 2024-12-29 13:00 | BD_ITS ---
PROCEDURE: DEXA BONE DENSITY STUDY 12/29/2024 REASON FOR EXAM: POST MENOPAUSAL F, age 69 y/o . Postmenopausal. TECHNIQUE: DEXA BONE DENSITY STUDY COMPARISON: None FINDINGS: BMD and T-SCORES Lumbar spine: 1.249 g/cm2, T-score 2.1 Levels: L1 through L4 Left femoral neck: 0.598 g/cm2, T-score -2.3 Femoral neck comparison data not recommended for monitoring change. Left total hip: 0.889 g/cm2, T-score -0.4 Right femoral neck: 0.589 g/cm2, T-score -2.3 Femoral neck comparison data not recommended for monitoring change. Right total hip: 0.856 g/cm2, T-score -0.7 The World Health Organization has defined the following categories based on bone density: Normal bone density: T-score equal to or greater than -1.0 Osteopenia: T-score between -1.0 and -2.5 Osteoporosis: T-score equal to or less than -2.5 The patient does meet the pharmacological treatment recommendations for prevention of osteoporosis. BD/Dexa Bone Density Study IMPRESSION: OSTEOPENIA. Recommend follow-up as clinically warranted. Reading Location: [place] [id number]
== END | disposition home or self-care (01) ==
LOC: OPBD 12:58
PROVIDERS: PCP Internal Medicine; Referring Provider Internal Medicine; Visit Provider Internal Medicine
DX: Z78.0 Asymptomatic menopausal state (principal)
CPT/HCPCS: 77080

== ENCOUNTER → 2025-03-22 | Outpatient (CLI) | payer MEDICARE, SELFPAY ==
[2025-03-22 12:55] LABS: AST(SGOT) 20 U/L (<=31); Alanine Aminotransfer ALT/SGPT 12 U/L (<=34); Albumin, Serum 4.6 g/dL (3.4-4.8); Alkaline Phosphatase 122 U/L (35-104); Anion Gap 13 (5-15); BUN 16 mg/dL (4-19); BUN/Creat Ratio 17.1 RATIO (10-20); Calcium,Total 9.6 mg/dL (7.6-11.0); Carbon Dioxide 21.3 mmol/L (21.0-32.0); Chloride 105 mmol/L (98-108); Globulin 2.9 g/dL (2.2-4.2); Glucose 118 mg/dL (70-99); Potassium 3.7 mmol/L (3.3-5.1)
[2025-03-22 12:56] LABS: Hematocrit 37.4 % (37-47); Hemoglobin 12.2 g/dL (12.0-15.0); Immature Granulocytes Count 0.030 X10^3/uL (0.0-0.0); Mean Corp Hgb Conc 32.6 g/dL (32-36); Mean Corpuscular Volume 91.7 fL (81-99); Mean Platelet Vol. 10.2 fl (6.2-12.0); NRBC Flagged by Analyzer 0 % (0-5); Platelet Count 333 K/mm3 (150-450); RBC Distribution Width CV 13.5 % (11.6-14.6); RBC Distribution Width SD 45.6 fl (35.1-43.9); Red Blood Count 4.08 M/mm3 (4.2-5.4); White Blood Count 6.5 K/mm3 (4.4-11.0)
== END | disposition home or self-care (01) ==
LOC: BIMLAB 11:24
PROVIDERS: PCP Internal Medicine; Referring Provider Internal Medicine; Visit Provider Internal Medicine
DX: F41.9 Anxiety disorder, unspecified (principal); F32.A Depression, unspecified; I10 Essential (primary) hypertension; R73.03 Prediabetes
CPT/HCPCS: 36415; 80053; 83036; 85025

== ENCOUNTER → 2025-04-18 | Outpatient (CLI) | payer MEDICARE, SELFPAY ==
--- NOTE | 2025-04-18 12:39 | STEWCON_ITS ---
Reason For Study Reason For Study: Chest Pain; Abnormal EKG Stress Results Protocol: Jhon Protocol WITH DEFINITY Maximum Predicted HR: 150 bpm Target HR: 128 bpm % Maximum Predicted HR: 99 % DurationHeart Rate Stage (mm:ss) (bpm) BP Comment Baseline 77 142/80No Chest Pain; 2 ML Diluted Definity Jhon Protocol Stage I 3:00 139 168/90No Chest Pain; Moderate Dyspnea Jhon Protocol Stage II 0:45 148 / No Chest Pain; Moderate Dyspnea Recovery 95 152/80No Chest Pain; No Dyspnea Stress Duration: 3:45 mm:ss Maximum Stress HR: 148 bpm METS: 6 Baseline Echocardiogram Findings Stress Echo Wall motion Data Resting WM Intermediate WM Stress WM ECHO/Stress Test Echo W/Contrast Interpretation Summary Exercise stress echocardiogram. 70-year-old lady with a history of chest pain and abnormal EKG. Resting EKG demonstrates normal sinus rhythm with a rate of 77 bpm inferior T w ave inversions present. Blood pressure is 142/80 mmHg. The patient exercised according to regular Jhon protocol for tota l duration of 3 minutes and 45 seconds the maximum heart rate attained was 150 bpm which was 100% of max impacted hear t rate the maximum workload was 6.4 metabolic equivalents. At rest there were no ST or T wave changes to suggest is chemia. Resting T wave inversions however were present. At peak exercise upsloping ST changes were noted which did not me et the criteria for ischemia. No clinical angina was noted the test was terminated due to dyspnea and target heart rate a chieved. Maximum workload was 6.4 metabolic equivalents peak blood pressure was 192/80 mmHg which is good blood p ressure response to exercise. Stress echocardiogram. Resting echocardiogram was performed with Definity enhancement the resting ejec tion fraction was approximately 60%. At peak exercise there was thickening of all castro reduction of left ventricular c avity size and peaking of ejection fraction at 70%. No wall motion abnormalities were noted. Conclusion: Stress test with no EKG criteria for ischemia at a moderate workload. Stress echocardiogram demonstrating no evidence of ischemia present. Ordering Physician: Tatyana Pretty Referring Physician: Tatyana Pretty Performed By: Justyna Escobar, MARIELA, RVT
== END | disposition home or self-care (01) ==
LOC: CVS 12:34
PROVIDERS: PCP Internal Medicine; Referring Provider Internal Medicine; Visit Provider Internal Medicine
DX: R94.31 Abnormal electrocardiogram [ECG] [EKG] (principal); R07.9 Chest pain, unspecified
CPT/HCPCS: 93017; 93350; Q9957; A4216; C8928